=== PATIENT | female | born 1930 | race Caucasian/White ===

== ENCOUNTER 2016-12-06 14:07 | Inpatient (IN) ==
[2016-12-06] MEDS ORDERED: SODIUM CHLORIDE 0.9% 500 ML IV STA (14:26)
--- NOTE | 2016-12-06 14:38 | Emergency Department Note ---
Mally Antoine Mantricia, am scribing for, and in the presence of, Tang Paige MD 14:32. Grecia Antoine James D, MD, personally performed the services described in this documentation, ascribed by Gage Bal in my presence, and it is both accurate and complete 437 . Arrival - Arrival Chief Complaint: Weakness Stated Complaint: weakness ED Nursing Triage Note: Brought in per EMS from home with generalized weakness onset 2 days ago, worse when standing. Unable to ambulate without assistance. Denies pain. Mode of Arrival: Stretcher Limitations: No Limitations Source: Patient, Family Time Seen by Provider: 12/06/16 14:20 - History of Present Illness HPI Narrative: Pt is an 86 y/o white female arriving to ED by EMS with c/o weakness that onset 2 days ago. Family states that pt was Dx with a stomach flu 2 weeks ago and has been weak since then but worsened in the past few days. Family states that pt cannot walk without collapsing even using her walker. Pt has a PMHx of kidney disease but does not dialyze. Pt reports no other complaints to ED. Onset (ago): day(s) Date of Last Menstrual Period: hyst Allergies/Adverse Reactions: Allergies Allergy/AdvReac Type Severity Reaction Status Date / Time Sulfa (Sulfonamide Allergy Unknown/Unable Verified 12/06/16 14:14 Antibiotics) to obtain Home Medications: Home Medications Medication Instructions Recorded Confirmed Type Allopurinol [Allopurinol] 150 mg PO QAM 12/06/16 12/06/16 History Amlodipine Besylate [Amlodipine 7.5 mg PO QAM 12/06/16 12/06/16 History Besylate] Citalopram [CeleXA] 20 mg PO QAM 12/06/16 12/06/16 History Fenofibrate [Fenofibrate] 160 mg PO DAILY W/BREAKFAST 12/06/16 12/06/16 History Gabapentin [Gabapentin] 300 mg PO QAM 12/06/16 12/06/16 History Levothyroxine Tab [Synthroid Tab] 125 mcg PO DAILY@0700 12/06/16 12/06/16 History Metoprolol Tartrate [Metoprolol 100 mg PO BID 12/06/16 12/06/16 History Tartrate] Omeprazole [Omeprazole] 20 mg PO BID 12/06/16 12/06/16 History Ondansetron Tab [Zofran Tab] 4 mg PO Q8HR PRN 12/06/16 12/06/16 History Simvastatin [Simvastatin] 40 mg PO QPM 12/06/16 12/06/16 History Torsemide [Torsemide] 10 mg PO QAM 12/06/16 12/06/16 History cloNIDine TAB [Catapres Tab] 0.3 mg PO QAM 12/06/16 12/06/16 History Review of System - Review of System 12 point system: reviewed and no additional remarkable complaints except as stated - Review of System Constitutional: Absent: chills, diaphoresis, fever Eyes: Absent: discharge, pain, redness Head/Ears/Nose/Throat: Absent: earache, epistaxis Respiratory: Absent: cough, respiratory distress, wheezing Cardiovascular: Absent: chest pain, palpitations, dyspnea on exertion Gastrointestinal: Present: diarrhea. Absent: abdominal pain, nausea, vomiting Genitourinary female: Absent: abnormal menses, dysuria Musculoskeletal: Absent: arm pain, back pain, leg pain, neck pain Skin: Absent: rash, lesions Neurological: Present: weakness. Absent: headache Psychiatric: Absent: anxiety Medical,Surgical,& Family Hx - Medical History Cardio: History of: Hypertension Endocrine: History of: Thyroid Disorder Renal: History of: Renal Problems ("kidney disease") - Surgical History Reproductive Surgeries: Surgical HX of;: Hysterectomy - Social History Smoking Status: Never smoker Frequency of Alcohol Use: None Type of Drug Use: None Exam Vital Signs: Vital Signs Temperature 98.5 F 12/06/16 14:10 Pulse Rate 57 L 12/06/16 15:04 Respiratory Rate 20 12/06/16 15:04 Blood Pressure 178/71 12/06/16 15:04 O2 Sat by Pulse Oximetry 98 12/06/16 15:04 - General General appearance: alert, in no apparent distress, other (Chronically ill- appearing) - Head Head exam: Present: atraumatic, normocephalic, normal inspection - Eye Eye exam: Present: normal appearance, PERRL, EOMI - ENT ENT exam: Present: normal exam, normal oropharynx, mucous membranes dry, TM's normal bilaterally, normal external ear exam - Neck Neck exam: Present: normal inspection, full ROM, trachea midline. Absent: tenderness - Chest Chest inspection: Present: normal inspection, symmetric chest wall rise. Absent : tenderness - Respiratory Respiratory exam: Present: normal lung sounds bilaterally - Cardiovascular Cardiovascular exam: Present: regular rate, normal rhythm, normal heart sounds - Abdominal Exam Abdominal exam: Present: soft, normal bowel sounds. Absent: distention, tenderness, guarding, rebound - Neurological Exam Neurological exam: Present: alert, oriented X3, CN II-XII intact, reflexes normal, other (Motor function is 4/4 in all extremities) - Psychiatric Psychiatric exam: Present: normal affect, normal mood - Skin Skin exam: Present: warm, dry, intact, normal color Course - Consultations Consultation #1: Discussed with hospitalist. Patient will be admitted to their service. Time: 15:36 Results - Labs CBC & BMP: 12/06/16 14:25 12/06/16 14:25 Lab Results: I have reviewed the patients labs Labs: Laboratory Tests 12/06/16 12/06/16 12/06/16 14:25 14:25 15:11 WBC 7.3 Hgb 8.2 L Hct 26.7 L Plt Count 176 Sodium 141 Potassium 4.1 Chloride 106 Carbon Dioxide 26 Anion Gap 13.1 BUN 59 H Creatinine 5.00 H Free T4 1.57 H TSH 3rd Generation 1.510 Urine pH 7.0 Ur Specific [place] 1.010 Urine Protein >=500 Urine RBC <1 Urine WBC 2 - EKG EKG results: interpreted by ERMD - Impressions EKG: Atrial fib with a rate of 57, left posterior fascicular block, nonspecific ST-T wave changes. - Diagnostic Findings Procedure: Chest x-ray: image reviewed by me (Left-sided pneumonia left-sided pneumonia) Disposition Clinical Impression: Generalized weakness, Pneumonia, Chronic renal failure, stage 3 (moderate) Case discussed with: patient, patient's family Disposition: Still a Patient Condition: Stable Time of Disposition: 15:38
[2016-12-06 14:40] LABS: Basophils % 0.4 % (0.0-0.8); Eosinophils # 0.1 10*3/uL (0.0-0.87); Eosinophils % 0.8 % (0.00-10.9); Hematocrit 26.7 VOL% (35.7-47.0); Hemoglobin 8.2 GM/DL (12.0-16.0); Immature Granulocytes % 0.6 %; Immature Granulocytes Absolute 0.04 #; Lymphocytes # 1.8 10*3/uL (1.4-4.0); Lymphocytes % 24.2 % (21.3-54.2); Mean Corpuscular HGB Conc 30.7 GM/DL (32-36); Mean Corpuscular Hemoglobin 29 PG (27-34); Monocytes # 0.6 10*3/uL (0.11-0.8); Monocytes % 8.1 % (1.7-12.7); Neutrophils # 4.8 10*3/uL (1.4-7.4); Neutrophils % 65.9 % (38.7-73.9); Platelet Count 176 T/CUMM (130-400); Red Blood Count 2.81 MC/CUMM (3.8-5.5); Red Cell Distribution Width 15.6 % (9.3-17.3); White Blood Count 7.3 T/CUMM (4-12)
--- NOTE | 2016-12-06 15:01 | CT Report ---
CT head/brain wo con Indication: Generalized weakness Comparison: CT brain dated October 14, 2010 Technique: Multiple axial tomographic images of the brain were obtained without the use of intravenous contrast. Findings: Midline structures are nondisplaced. There is no evidence of acute intracranial hemorrhage or hydrocephalus. Mild periventricular and subcortical hypoattenuation noted which is nonspecific but consistent with chronic microvascular ischemic change. Moderate global volume loss present. Atherosclerotic calcifications demonstrated. Mastoid air cells clear. Probable partially visualized mucous retention cyst within right maxillary sinus. IMPRESSION: No acute intracranial abnormality demonstrated. The CT exam was performed using one or more of the following dose reduction techniques: Automated exposure control, adjustment of the mA and/or kV according to patient size, or use of iterative reconstruction technique. PROCEDURE INTERPRETED AT [facility] DEPARTMENT OF RADIOLOGY Final Report Signed by: Dr Johan Tolentino
--- NOTE | 2016-12-06 15:12 | XRay Report ---
XR chest 1V Indication: Generalized weakness Comparison: Chest x-ray dated May 25, 2012 Technique: Single frontal view of the chest. Findings: Mild cardiomegaly. Left mid and lower lung atelectasis/consolidation with small left pleural fluid. Mild right basilar atelectasis/consolidation with trace right pleural fluid. Pulmonary edema/CHF versus pneumonia. Visualized osseous and surrounding soft tissue structures appear grossly unchanged. Dextroconvex curvature of the spine. IMPRESSION: As above. PROCEDURE INTERPRETED AT [facility] [place] DEPARTMENT OF RADIOLOGY Final Report Signed by: Dr Johan Tolentino
[2016-12-06 15:24] LABS: Albumin 2.8 G/DL (3.4-5.0); Bilirubin,Total 0.6 MG/DL (0.2-1.0); Calcium 8.3 MG/DL (8.5-10.1); Free T4 (Free Thyroxine) 1.57 NG/DL (0.76-1.46); Osmolality,Calculated 297.3 MOS/KG (273-304); Potassium 4.1 MMOL/L (3.5-5.1); Thyroid Stimulating Hormone 1.51 uIU/ml (0.358-3.74); Total Protein 5.2 G/DL (6.4-8.3)
[2016-12-06 15:25] LABS: Apearance,Urine CLEAR (Clear); Bilirubin,Urine Negative (Negative); Blood, Urine Negative (Negative); Glucose,Urine (UA) Negative (Negative); Ketones,Urine Negative (Negative); Nitrite,Urine Negative (Negative); Protein,Urine >=500 MG/DL; RBC,Urine <1 /HPF (0-4); Urine Color Yellow (Yellow); Urine Urobilinogen < 2.0 EU/DL (0.2-1.0); WBC,Urine 2 /HPF (0-6)
--- NOTE | 2016-12-06 15:34 | EKG Report ---
Stationary ECG Study [facility] ER Test Date: 12/06/2016 2:42:16 PM Pat Name: EUGENIE SALDIVAR Department: Room: Gender: F Investigation Division Captain: : [id number] Requested by: Tang Ahumada Order Number: [id number] Reading MD: ANJELICA MARX Intervals [place] Rate: 57 P: 999 HI: 0 QRS: 175 QRSD: 97 T: 202 QT: 422 QTc: 416 Interpretive Statements ATRIAL FIBRILLATION LEFT POSTERIOR FASCICULAR BLOCK MODERATE T-WAVE ABNORMALITY, CONSIDER INFERIOR ISCHEMIA Electronically Signed On 12-06-16 20:54:30 CDT by ANJELICA MARX [email or web address]
[2016-12-06] MEDS ORDERED: LEVOFLOXACIN INJ 500 MG in PREMIX 1 EACH IV STA (15:37)
[2016-12-06] MEDS ORDERED: LEVOFLOXACIN INJ 100 ML IV ONE (16:01)
[2016-12-06] MEDS ORDERED: ACETAMINOPHEN 325 MG TABLET PO PRN (16:25)
--- NOTE | 2016-12-06 16:38 | Hospitalist History & Physical ---
Assessment and Plan (1) Pneumonia Status: Acute Assessment and plan: Impression: 1. Pleural effusion and/or pneumonia 2. Chronic kidney disease, stage V 3. Hypertension Plan: She has already received antibiotics in the emergency room for treatment of presumed pneumonia. I think she needs a thoracentesis. We will plan on this in the morning. I have already ordered pleural fluid studies. We will continue her home medications once the list gets loaded into the medical record. I will notify nephrology of her admission. This note was completed using [employer] voice recognition software. There may be topology teacher errors as a result. Current Visit: Yes Qualifiers: Pneumonia type: due to unspecified organism Laterality: left Lung location: lower lobe of lung Qualified Code(s): J18.1 - Lobar pneumonia, unspecified organism History of Present Illness Chief complaint: Weakness for several days History of present illness: Ms. Haas is a 86 year old female She reports a history of hypertension for at least the past 20 years. She denies any prior history of any heart disease, myocardial infarction, congestive heart failure, or stroke. She was in her usual state of fair health until about 2 weeks before admission. At that time, she felt constipated and took some laxatives. This resulted in diarrhea, and she ended up becoming dehydrated. She went to see her local physician, and received a bag of IV fluids. She was told that she had a "stomach bug." She went to live with her granddaughter for a while and began to improve. She fell a couple of times at the granddaughter's house. She apparently did not lose conscious contact. She had another episode of constipation and again took some laxatives yesterday. She again developed some diarrhea, and was too weak to stand this morning. At that time, she came to the emergency room for further evaluation. She did not have any GI bleeding as far she knows. She has not had any abdominal pain. She reports some chronic exertional dyspnea, but this has not worsened. She has no prior history of any liver disease. She has a history of chronic kidney disease and sees Dr. Soria on a semiannual basis. The family thinks that her creatinine is somewhere between 6-7. She was found to have a left-sided pleural effusion or infiltrate in the emergency room, and is now being admitted for management of that. Home Medications Medication Instructions Recorded Confirmed Type Allopurinol [Allopurinol] 150 mg PO QAM 12/06/16 12/06/16 History Amlodipine Besylate [Amlodipine 7.5 mg PO QAM 12/06/16 12/06/16 History Besylate] Citalopram [CeleXA] 20 mg PO QAM 12/06/16 12/06/16 History Fenofibrate [Fenofibrate] 160 mg PO DAILY W/BREAKFAST 12/06/16 12/06/16 History Gabapentin [Gabapentin] 300 mg PO QAM 12/06/16 12/06/16 History Levothyroxine Tab [Synthroid Tab] 125 mcg PO DAILY@0700 12/06/16 12/06/16 History Metoprolol Tartrate [Metoprolol 100 mg PO BID 12/06/16 12/06/16 History Tartrate] Omeprazole [Omeprazole] 20 mg PO BID 12/06/16 12/06/16 History Ondansetron Tab [Zofran Tab] 4 mg PO Q8HR PRN 12/06/16 12/06/16 History Simvastatin [Simvastatin] 40 mg PO QPM 12/06/16 12/06/16 History Torsemide [Torsemide] 10 mg PO QAM 12/06/16 12/06/16 History cloNIDine TAB [Catapres Tab] 0.3 mg PO QAM 12/06/16 12/06/16 History Allergies Allergy/AdvReac Type Severity Reaction Status Date / Time Sulfa (Sulfonamide Allergy Unknown/Unable Verified 12/06/16 14:14 Antibiotics) to obtain Medical,Surgical,& Family Hx - Medical History Cardio: History of: Hypertension Endocrine: History of: Thyroid Disorder Respiratory: History of: Pneumonia Renal: History of: Renal Failure, Renal Problems ("kidney disease") - Surgical History Abdominal Surgeries: Surgical HX of: Cholecystectomy Reproductive Surgeries: Surgical HX of;: Hysterectomy Orthopedic Surgeries: Surgical HX of;: Spinal Surgery - Social History Smoking Status: Never smoker Frequency of Alcohol Use: None Type of Drug Use: None Marital Status: Single Lives With:: Alone Review of systems: Gen.: She is lost about 15 pounds over the past couple of months. Eyes: No glaucoma or cataracts. No change in visual acuity. Ears nose and throat: No change in auditory acuity, sinus problems, or sore throat. Lungs: No asthma or bronchitis. She had pneumonia about 3 years ago. Cardiac: See history of present. GI: No liver disease. Otherwise, see history of present illness : No hematuria, UTI, or stones. Chronic kidney disease as described above. Neurologic: No seizures. Endocrine: No thyroid disease. Hematologic: Chronic anemia, likely related to her chronic kidney disease. Skin: No rashes or lesions. Musculoskeletal: Only age-related arthritic complaints. Exam - Constitutional Vitals: Period Temp Pulse Resp BP Sys/Garcia Pulse Ox Last 24 Hr 98.5 F-98.5 F 57-60 18-20 171-185/71-85 94-100 Vital signs are noted above. General: She is a pleasant white lady in no distress. HEENT: Pupils are round and reactive. Extraocular muscles are normal. Gaze is conjugate. Fundi were not examined. There is no nasal discharge. Mucous membranes are moist. Neck: Supple, without mass, bruit, or venous distention. Cardiac: Rhythm is regular. The carotids are normal. I don't hear murmur gallop or rub. Peripheral pulses are intact. Lungs: Breath sounds are decreased in the left base with dullness to percussion. Abdomen: Soft and nontender. Bowel sounds are present. No mass palpable. Rectal: Not done. Extremities: No cyanosis, clubbing, or edema. Skin: No significant rash or lesion. Neurologic: She is awake and alert. She moves all 4 extremities. Cranial nerves appear to be intact. No pathologic reflexes are elicited. Results - Labs CBC & BMP: 12/06/16 14:25 12/06/16 14:25 Lab Results: I have reviewed the past 24 hour labs - Diagnostic Findings Procedure: Chest x-ray: image reviewed by me (Left-sided pleural effusion and/ or infiltrate)
[2016-12-06] MEDS ORDERED: ONDANSETRON 4 MG TABLET PO PRN (16:46)
[2016-12-06] MEDS: LEVOFLOXACIN INJ 500 MG in PREMIX 1 EACH IV SCH (18:10)
[2016-12-06] MEDS: ENOXAPARIN 30 MG/0.3 ML SYRINGE SUBCUT SCH (18:31)
[2016-12-06] MEDS ORDERED: SIMVASTATIN 40 MG TABLET PO SCH (19:00)
[2016-12-06 19:37] LABS: INR 1.2; PT Patient Result 12.5 SECS; Partial Thromboplastin Time 29.9 SECS (0-40)
[2016-12-06] MEDS: METOPROLOL TARTRATE 100 MG TABLET PO SCH (20:36)
[2016-12-06] MEDS: PANTOPRAZOLE 40 MG TABLET PO SCH (20:36)
[2016-12-07 05:18] LABS: Basophils % 0.4 % (0.0-0.8); Eosinophils # 0.1 10*3/uL (0.0-0.87); Eosinophils % 0.9 % (0.00-10.9); Hematocrit 23.2 VOL% (35.7-47.0); Immature Granulocytes % 0.4 %; Immature Granulocytes Absolute 0.02 #; Lymphocytes % 35.8 % (21.3-54.2); Mean Corpuscular HGB Conc 30.2 GM/DL (32-36); Mean Corpuscular Hemoglobin 30 PG (27-34); Mean Corpuscular Volume 97.9 FL (87-102); Mean Platelet Volume 11.7 FL (9.6-12.0); Monocytes # 0.6 10*3/uL (0.11-0.8); Monocytes % 11.3 % (1.7-12.7); Neutrophils # 2.9 10*3/uL (1.4-7.4); Neutrophils % 51.2 % (38.7-73.9); Platelet Count 150 T/CUMM (130-400); Red Blood Count 2.37 MC/CUMM (3.8-5.5); Red Cell Distribution Width 15.6 % (9.3-17.3); White Blood Count 5.6 T/CUMM (4-12)
[2016-12-07 05:43] LABS: Calcium 7.7 MG/DL (8.5-10.1); Osmolality,Calculated 296.3 MOS/KG (273-304)
[2016-12-07] MEDS: LEVOTHYROXINE 125 MCG TABLET PO SCH (06:08)
[2016-12-07] MEDS ORDERED: FENOFIBRATE 160 MG TABLET PO SCH (08:00)
--- NOTE | 2016-12-07 09:54 | Hospitalist Progress Note ---
Assessment and Plan (1) Pneumonia Status: Acute Assessment and plan: Impression: 1. Pleural effusion and/or pneumonia 2. Chronic kidney disease, stage V 3. Hypertension Plan: Continue current antibiotics. Await thoracentesis and results of pleural fluid studies. Nephrology has been notified of her admission. This note was completed using [employer] voice recognition software. There may be truck crane operator errors as a result. Current Visit: Yes Qualifiers: Pneumonia type: due to unspecified organism Laterality: left Lung location: lower lobe of lung Qualified Code(s): J18.1 - Lobar pneumonia, unspecified organism Hospitalist: Subjective Interval history: Follow-up right sided pneumonia/effusion and chronic kidney disease. Patient says that she did not sleep well. Overall, she feels a little better. We are still waiting on the thoracentesis. Exam - Constitutional Vitals: Period Temp Pulse Resp BP Sys/Garcia Pulse Ox Last 24 Hr 97.0 F-99.1 F 55-62 18-20 143-191/68-90 93-100 Vital signs are noted above. Heart is regular with no murmur or gallop. Lungs are notable for decreased breath sounds in the left base with dullness to percussion. She is awake and alert Results - Labs CBC & BMP: 12/07/16 04:53 12/07/16 04:53 Lab Results: I have reviewed the past 24 hour labs
[2016-12-07] MEDS: CITALOPRAM 20 MG TABLET PO SCH (10:24)
[2016-12-07] MEDS: PANTOPRAZOLE 40 MG TABLET PO SCH ×2 (10:25→20:59)
[2016-12-07] MEDS: GABAPENTIN 300 MG CAPSULE PO SCH (10:25)
[2016-12-07] MEDS: METOPROLOL TARTRATE 100 MG TABLET PO SCH ×2 (10:26→20:59)
[2016-12-07] MEDS: amLODIPine 5 MG TABLET PO SCH (10:26)
[2016-12-07] MEDS: TORSEMIDE 20 MG TABLET PO SCH (10:27)
[2016-12-07] MEDS: ALLOPURINOL 300 MG TABLET PO SCH (10:27)
--- NOTE | 2016-12-07 13:11 | Post Interventional Procedure ---
Pre-op diagnosis: SOB with left pleural effusion Post-op diagnosis: same Procedure: left thoracentesis Contrast: none Flouroscopy: none Radiologist: Byron Whitlock Anesthesia: local Specimens: other (fluid sent for any requested studies) Estimated blood loss: none Complications: none Condition: stable Description/Findings: left pleural effusion drained with 6F centesis needle using u/s guidance with no issues Assessment and Plan - Time spent with patient Time spent with patient: Less than 30 minutes
--- NOTE | 2016-12-07 13:14 | XRay Report ---
Exam: XR chest post procedure Indication: Status post left thoracentesis Comparison study: Chest radiograph dated 12/06/2016 at 2:57 PM Findings: Since the prior study, there is significant decrease in pleural fluid within the left chest. There is no pneumothorax following left thoracentesis. Mild cardiomegaly and atherosclerotic changes of the thoracic aorta appears similar to prior. Lungs are otherwise predominantly clear. There is no significant residual pleural fluid. Osseous structures appear stable. Impression: No pneumothorax following left thoracentesis with significant decrease in pleural fluid in the left lung base. PROCEDURE INTERPRETED AT [facility] DEPARTMENT OF RADIOLOGY Final Report Signed by: Byron Whitlock
[2016-12-07 14:15] LABS: Lymphocytes,Pleural Fluid 85 %; Monocytes,Pleural Fluid 2 %; Neutrophils,Pleural Fluid 12 %
[2016-12-07 14:16] LABS: RBC,Pleural Fluid < 1 T/CUMM
--- NOTE | 2016-12-07 14:20 | Ultrasound Report ---
Exam: ULTRASOUND-GUIDED THORACENTESIS Clinical history: History of moderate-sized left pleural effusion with shortness of breath. Physician: Dr. Whitlock. Procedure: Informed consent was obtained prior to the procedure. A formal timeout was performed. Maximum sterile barrier technique was used. A partially loculated left-sided pleural effusion was identified with ultrasound. The left posterior chest was prepped and draped in sterile fashion. 1% lidocaine was used to anesthetize the skin and subcutaneous tissues. Under sonographic guidance, a 6 Czech safety centesis needle and catheter were advanced into the effusion using trocar technique. A captured sonographic image demonstrates positioning of the needle within the targeted pleural fluid. The needle was removed. Through the catheter, we obtained a total of 600 cc of serous straw-colored fluid. The catheter was removed. A bandage was placed at the puncture site. The patient tolerated the procedure well. Chest radiograph is pending. Total number of images for the procedure: 2 Impression: 1. Technically successful ultrasound guided left thoracentesis as detailed above. 2. Post procedure chest radiograph is pending. PROCEDURE INTERPRETED AT [facility] DEPARTMENT OF RADIOLOGY Final Report Signed by: Byron Whitlock
--- NOTE | 2016-12-07 14:35 | Event Note ---
The patient had 600 mL of pleural fluid removed. Studies are consistent with a transudate. We will continue antibiotics for now, although the chest x-ray postprocedure looks pretty good.
--- NOTE | 2016-12-07 19:16 | Nephrology Consult Note ---
History of Present Illness Chief complaint: CRF History of present illness: Ms. Haas is a 86 year old female admitted with left pleural effusion. She denies pleuritic chest pain or hemoptysis. She reports constipation followed by diarrhea after taking laxatives. No abdominal pain. She has chronic renal failure which was noted to be worse at the time of this admission. She denies dysuria or hematuria. Home Medications Medication Instructions Recorded Confirmed Type Allopurinol [Allopurinol] 150 mg PO DAILY 12/06/16 12/07/16 History Amlodipine Besylate [Amlodipine 7.5 mg PO DAILY 12/06/16 12/07/16 History Besylate] Citalopram [CeleXA] 20 mg PO DAILY 12/06/16 12/07/16 History Fenofibrate [Fenofibrate] 160 mg PO DAILY W/BREAKFAST 12/06/16 12/06/16 History Gabapentin [Gabapentin] 300 mg PO DAILY 12/06/16 12/07/16 History Levothyroxine Tab [Synthroid Tab] 125 mcg PO DAILY@0700 12/06/16 12/06/16 History Metoprolol Tartrate [Metoprolol 100 mg PO BID 12/06/16 12/06/16 History Tartrate] Omeprazole [Omeprazole] 20 mg PO BID 12/06/16 12/06/16 History Ondansetron Tab [Zofran Tab] 4 mg PO Q8HR PRN 12/06/16 12/06/16 History Simvastatin [Simvastatin] 40 mg PO BEDTIME 12/06/16 12/07/16 History Torsemide [Torsemide] 5 mg PO DAILY 12/06/16 12/07/16 History cloNIDine TAB [Catapres Tab] 0.3 mg PO DAILY 12/06/16 12/07/16 History Allergies Allergy/AdvReac Type Severity Reaction Status Date / Time Sulfa (Sulfonamide Allergy Unknown/Unable Verified 12/06/16 14:14 Antibiotics) to obtain Medical,Surgical,& Family Hx - Medical History Cardio: History of: Hypertension Endocrine: History of: Thyroid Disorder Respiratory: History of: Pneumonia Renal: History of: Renal Failure, Renal Problems ("kidney disease") - Surgical History Abdominal Surgeries: Surgical HX of: Cholecystectomy Reproductive Surgeries: Surgical HX of;: Hysterectomy Orthopedic Surgeries: Surgical HX of;: Spinal Surgery - Social History Smoking Status: Never smoker Frequency of Alcohol Use: None Type of Drug Use: None Review of Systems 12 point system: reviewed and no additional remarkable complaints except as stated Exam - Vital Signs Vital signs: Period Temp Pulse Resp BP Sys/Garcia Pulse Ox Last 24 Hr 97.0 F-99.2 F 55-78 16-20 146-193/57-90 91-97 Exam: Gen.: Alert and oriented x3. ENT: Pupils equal round reactive to light. EOMs intact. Mucous membranes moist. Neck: Supple. No JVD or bruit. Cardiovascular: Regular rate and rhythm. No murmur rub or gallop Lungs: Clear Abdomen: Soft. Nontender. Positive bowel sounds. No organomegaly Extremities: No edema Results - Labs CBC & BMP: 12/07/16 04:53 12/07/16 04:53 Assessment and Plan (1) Chronic kidney disease, stage IV (severe) Status: Acute Assessment and plan: 86-year-old woman admitted with: * Pleural effusion. Thoracentesis today. Studies pending. Continue current antibiotic * CRF stage IV. Baseline creatinine 3.1 in December 2016 * Acute on chronic renal failure. She does not appear to be volume overloaded. Blood pressure was low at the time of admission. Renal function improving with improving blood pressure * Anemia. Erythropoietin level ordered Current Visit: Yes (2) Pleural effusion Status: Acute Current Visit: Yes (3) Anemia Status: Acute Current Visit: Yes (4) Acute on chronic renal failure Status: Acute Current Visit: Yes
[2016-12-07] MEDS: FENOFIBRATE 160 MG TABLET PO SCH (20:59)
[2016-12-07] MEDS: ENOXAPARIN 30 MG/0.3 ML SYRINGE SUBCUT SCH (20:59)
[2016-12-07] MEDS: SIMVASTATIN 40 MG TABLET PO SCH (20:59)
[2016-12-08] MEDS: LEVOTHYROXINE 125 MCG TABLET PO SCH (06:07)
[2016-12-08] MEDS: GABAPENTIN 300 MG CAPSULE PO SCH (09:01)
[2016-12-08] MEDS: METOPROLOL TARTRATE 100 MG TABLET PO SCH ×2 (09:02→21:20)
[2016-12-08] MEDS: ALLOPURINOL 300 MG TABLET PO SCH (09:02)
[2016-12-08] MEDS: PANTOPRAZOLE 40 MG TABLET PO SCH ×2 (09:02→21:20)
[2016-12-08] MEDS: TORSEMIDE 20 MG TABLET PO SCH (09:03)
[2016-12-08] MEDS: CITALOPRAM 20 MG TABLET PO SCH (09:03)
[2016-12-08] MEDS: amLODIPine 5 MG TABLET PO SCH (09:06)
[2016-12-08 10:43] LABS: Basophils % 0.2 % (0.0-0.8); Eosinophils # 0.1 10*3/uL (0.0-0.87); Eosinophils % 1.2 % (0.00-10.9); Hematocrit 22.9 VOL% (35.7-47.0); Hemoglobin 7.1 GM/DL (12.0-16.0); Immature Granulocytes % 0.4 %; Immature Granulocytes Absolute 0.02 #; Lymphocytes # 1.7 10*3/uL (1.4-4.0); Lymphocytes % 32.8 % (21.3-54.2); Mean Corpuscular Hemoglobin 30 PG (27-34); Mean Corpuscular Volume 97.4 FL (87-102); Mean Platelet Volume 10.7 FL (9.6-12.0); Monocytes # 0.5 10*3/uL (0.11-0.8); Neutrophils # 2.9 10*3/uL (1.4-7.4); Neutrophils % 55.4 % (38.7-73.9); Platelet Count 126 T/CUMM (130-400); Red Blood Count 2.35 MC/CUMM (3.8-5.5); Red Cell Distribution Width 15.6 % (9.3-17.3); White Blood Count 5.2 T/CUMM (4-12)
[2016-12-08 11:10] LABS: Calcium 8.1 MG/DL (8.5-10.1); Osmolality,Calculated 299.1 MOS/KG (273-304); Potassium 4.1 MMOL/L (3.5-5.1)
--- NOTE | 2016-12-08 12:24 | Nephrology Progress Note ---
Nephrology - PN: Subj Interval history: She states her breathing has improved after thoracentesis. No GI symptoms. Exam (PN)-Nephrology - Vital Signs Vital signs: Period Temp Pulse Resp BP Sys/Garcia Pulse Ox Last 24 Hr 97.0 F-99.3 F 53-83 16-22 146-193/57-86 90-99 Exam: ENT: Normal Cardiovascular: Regular rate and rhythm. No murmur rub or gallop Lungs: Clear Extremities: No edema - Lab 12/08/16 10:34 12/08/16 10:34 Most recent lab results Calcium 8.1 MG/DL (8.5-10.1) L 12/08/16 10:34 Assessment and Plan (1) Chronic kidney disease, stage IV (severe) Status: Acute Assessment and plan: 86-year-old woman admitted with: * Pleural effusion. Status post thoracentesis. Continue current antibiotic * CRF stage IV. Baseline creatinine 3.1 in December 2016 * Acute on chronic renal failure. Creatinine stable today. * Anemia. Erythropoietin level ordered. Hematocrit lower today. Consider transfusion Current Visit: Yes (2) Pleural effusion Status: Acute Current Visit: Yes (3) Anemia Status: Acute Current Visit: Yes (4) Acute on chronic renal failure Status: Acute Current Visit: Yes
[2016-12-08] MEDS ORDERED: SODIUM CHLORIDE 0.9% 250 ML IV PRN (12:42)
--- NOTE | 2016-12-08 12:46 | Hospitalist Progress Note ---
Assessment and Plan - Time spent with patient Time spent with patient: Greater than 30 minutes (1) Pneumonia Status: Acute Current Visit: Yes Qualifiers: Pneumonia type: due to unspecified organism Laterality: left Lung location: lower lobe of lung Qualified Code(s): J18.1 - Lobar pneumonia, unspecified organism (2) Chronic kidney disease, stage IV (severe) Status: Acute Current Visit: Yes (3) Pleural effusion Status: Acute Current Visit: Yes (4) Anemia Status: Acute Current Visit: Yes (5) Acute on chronic renal failure Status: Acute Assessment and plan: We will obtain echocardiogram to further evaluate chest x-ray finding. I suspect her anemia is related to chronic kidney disease, but to most rule out possible GI losses, send stool occult blood. Transfused 2 units of PRBC. Consult physical, patient left therapy for deconditioning. Nephrology following Current Visit: Yes Hospitalist: Subjective Interval history: She reports improvement in her breathing after thoracentesis, however continues to complain of generalized weakness. No fever. Marked drop and hematocrit level, no active bleeding. Cardiomegaly documented on chest x-ray, no recent echocardiogram on chart. Exam - Constitutional Vitals: Period Temp Pulse Resp BP Sys/Garcia Pulse Ox Last 24 Hr 97.0 F-99.3 F 53-83 16-22 146-193/57-86 90-99 General appearance: mild distress - Head Head exam: Present: normocephalic, atraumatic - Eye Pupils: Present: ABE - ENT ENT exam: Present: normal external ear exam - Respiratory Respiratory exam: Present: clear to auscultation bilaterally. Absent: rhonchi, stridor - Cardiovascular Cardiovascular exam: Present: regular rate and rhythm. Absent: JVD - GI/Abdominal GI/Abdominal exam: Present: normal bowel sounds, soft. Absent: tenderness - Extremities Exam Extremities exam: Absent: edema - Neurological Exam Neurological exam: Present: alert, oriented X3 - Skin Skin exam: Present: normal color, warm, dry Results - Labs CBC & BMP: 12/08/16 10:34 12/08/16 10:34 Lab Results: I have reviewed the past 24 hour labs
[2016-12-08] MEDS: LEVOFLOXACIN INJ 500 MG in PREMIX 1 EACH IV SCH (21:19)
[2016-12-08] MEDS: SIMVASTATIN 40 MG TABLET PO SCH (21:20)
[2016-12-08] MEDS: FENOFIBRATE 160 MG TABLET PO SCH (21:20)
[2016-12-08] MEDS: ENOXAPARIN 30 MG/0.3 ML SYRINGE SUBCUT SCH (21:21)
[2016-12-09 02:25] LABS: Hematocrit 29.1 VOL% (35.7-47.0); Hemoglobin 9.1 GM/DL (12.0-16.0)
[2016-12-09] MEDS: LEVOTHYROXINE 125 MCG TABLET PO SCH (06:43)
[2016-12-09] MEDS: GABAPENTIN 300 MG CAPSULE PO SCH (08:14)
[2016-12-09] MEDS: CITALOPRAM 20 MG TABLET PO SCH (08:14)
[2016-12-09] MEDS: METOPROLOL TARTRATE 100 MG TABLET PO SCH ×2 (08:14→22:02)
[2016-12-09] MEDS: PANTOPRAZOLE 40 MG TABLET PO SCH ×2 (08:14→22:03)
[2016-12-09] MEDS: amLODIPine 5 MG TABLET PO SCH (08:14)
[2016-12-09] MEDS: TORSEMIDE 20 MG TABLET PO SCH (08:14)
[2016-12-09] MEDS: ALLOPURINOL 300 MG TABLET PO SCH (08:14)
--- NOTE | 2016-12-09 09:16 | Hospitalist Progress Note ---
Assessment and Plan - Time spent with patient Time spent with patient: Greater than 30 minutes (1) Pneumonia Status: Acute Current Visit: Yes Qualifiers: Pneumonia type: due to unspecified organism Laterality: left Lung location: lower lobe of lung Qualified Code(s): J18.1 - Lobar pneumonia, unspecified organism (2) Chronic kidney disease, stage IV (severe) Status: Acute Current Visit: Yes (3) Pleural effusion Status: Acute Current Visit: Yes (4) Anemia Status: Acute Current Visit: Yes (5) Acute on chronic renal failure Status: Acute Assessment and plan: We will obtain echocardiogram to further evaluate chest x-ray finding. Follow stool occult blood. Status post 2 units of PRBC. Physical therapy for deconditioning. She may need rehab placement on discharge and she is open to the idea. Nephrology following Current Visit: Yes Hospitalist: Subjective Interval history: No new changes, no fever. She clinically does not feel any stronger than she did over the last couple of days. No obvious medical reasons other than deconditioning due to acute and chronic illnesses has been found for her weakness so far. She will need rehab placement upon discharge Status post 2 PRBCs with appropriate rising hematocrit. Exam - Constitutional Vitals: Period Temp Pulse Resp BP Sys/Garcia Pulse Ox Last 24 Hr 97.0 F-99.3 F 53-64 16-20 143-197/54-88 93-100 Exam: General appearance: mild distress - Head Head exam: Present: normocephalic, atraumatic - Eye Pupils: Present: ABE - ENT ENT exam: Present: normal external ear exam - Respiratory Respiratory exam: Present: clear to auscultation bilaterally. Absent: rhonchi, stridor - Cardiovascular Cardiovascular exam: Present: regular rate and rhythm. Absent: JVD - GI/Abdominal GI/Abdominal exam: Present: normal bowel sounds, soft. Absent: tenderness - Extremities Exam Extremities exam: Absent: edema - Neurological Exam Neurological exam: Present: alert, oriented X3 - Skin Skin exam: Present: normal color, warm, dry Results - Labs CBC & BMP: 12/09/16 01:51 12/08/16 10:34 Lab Results: I have reviewed the past 24 hour labs
--- NOTE | 2016-12-09 13:14 | Nephrology Progress Note ---
Nephrology - PN: Subj Interval history: Pt states she feels better. Creatinine stable x 2 days at 4.8 for eGFR 8cc/min. CKD stage 5. No uremic symptoms. Exam (PN)-Nephrology - Vital Signs Vital signs: Period Temp Pulse Resp BP Sys/Garcia Pulse Ox Last 24 Hr 97.6 F-99.3 F 55-64 16-20 143-197/54-88 93-100 - General Appearance General appearance: well-developed, chronically ill EENT: ATNC, PERRL, mucous membranes moist, hearing intact, vision intact Neck: no JVD, no thyromegaly Respiratory: no kyphosis, clear Cardiology: no murmurs, no edema Gastrointestinal: normoactive bowel sounds, no tenderness Integumentary: no rash, warm and dry Neurologic: no focal deficit, no asterixis Musculoskeletal: no deformities, no erythema Psychiatric: mood/affect appropriate, cooperative - Lab 12/09/16 01:51 12/08/16 10:34 Most recent lab results Calcium 8.1 MG/DL (8.5-10.1) L 12/08/16 10:34 Assessment and Plan (1) CKD (chronic kidney disease) stage 5, GFR less than 15 ml/min Problem details: No acute indication for HD at this time. Status: Acute Assessment and plan: No new recs. Current Visit: Yes
--- NOTE | 2016-12-09 21:05 | ECHO Report ---
Waldo Karin Exam Date: 12/09/2016 11:11 Referring Physician: Technologist: Rosetta Granda RDCS Age: 86 Ht (in): 62 Wt (lb): 165 Gender: F Exam Location: [facility] Echo Indications: Pneumonia, Chronic kidney disease, stage 5, Acute kidney failure, unspecified, Pleural effusion, not elsewhere classified, Anemia, Abnormal CXR, Essential (primary) hypertension, post Thoracentesis BP: 149 / 68 HR: 55 Rhythm: Sinus Technical Quality: IMPRESSIONS Left ventricular ejection fraction is estimated at 50-55 %. Mild concentric left ventricular hypertrophy. Moderately thickened mitral valve with mild mitral annular calcification and mild mitral valve regurgitation. Mild aortic valve sclerosis without stenosis. Mild tricuspid valve regurgitation. Tricuspid regurgitation velocities suggest a PAP of 50 mmHg. MEASUREMENTS (Male / Female) Normal Values 2D ECHO LV Diastolic Diameter PLAX 5.2 cm 4.2 - 5.9 / 3.9 - 5.3 cm LV Systolic Diameter PLAX 3.1 cm LV Fractional Shortening PLAX 40.1 % IVS Diastolic Thickness 1.1 cm 0.6 - 1.0 / 0.6 - 0.9 cm LVPW Diastolic Thickness 1.0 cm 0.6 - 1.0 / 0.6 - 0.9 cm RV Internal Dim ED PLAX 2.9 cm Aortic Root Diameter 3.2 cm LA Systolic Diameter LX 4.4 cm 3.0 - 4.0 / 2.7 - 3.8 cm DOPPLER TR Peak Velocity 316.0 cm/s TR Peak Gradient 39.9 mmHg FINDINGS Left Ventricle Normal left ventricular cavity size. Mild concentric left ventricular hypertrophy. Left ventricular ejection fraction is estimated at 50-55 %. Right Ventricle The right ventricle is normal in size and function. Right Atrium Moderately increased right atrial size. Left Atrium Moderately increased left atrial size. Mitral Valve Moderately thickened mitral valve with mild mitral annular calcification and mild mitral valve regurgitation. Aortic Valve Mild aortic valve sclerosis without stenosis. Tricuspid Valve Morphologically normal tricuspid valve. Mild tricuspid valve regurgitation. Tricuspid regurgitation velocities suggest a PAP of 50 mmHg. Pulmonic Valve Morphologically normal pulmonic valve. Trace to mild pulmonary valve regurgitation. Pericardium Normal pericardium without effusion. Aorta Normal ascending aorta dimension. Christiano Pinto (Electronically Signed) Final Date: 09 December 2016 21:03
[2016-12-09] MEDS: ENOXAPARIN 30 MG/0.3 ML SYRINGE SUBCUT SCH (22:02)
[2016-12-09] MEDS: FENOFIBRATE 160 MG TABLET PO SCH (22:03)
[2016-12-09] MEDS: SIMVASTATIN 40 MG TABLET PO SCH (22:03)
[2016-12-10] MEDS: LEVOTHYROXINE 125 MCG TABLET PO SCH (06:33)
[2016-12-10] MEDS: METOPROLOL TARTRATE 100 MG TABLET PO SCH ×2 (08:17→20:10)
[2016-12-10] MEDS: amLODIPine 5 MG TABLET PO SCH (08:17)
[2016-12-10] MEDS: TORSEMIDE 20 MG TABLET PO SCH (08:18)
[2016-12-10] MEDS: PANTOPRAZOLE 40 MG TABLET PO SCH ×2 (08:19→20:10)
[2016-12-10] MEDS: GABAPENTIN 300 MG CAPSULE PO SCH (08:19)
[2016-12-10] MEDS: CITALOPRAM 20 MG TABLET PO SCH (08:19)
[2016-12-10] MEDS: ALLOPURINOL 300 MG TABLET PO SCH (08:19)
--- NOTE | 2016-12-10 10:02 | Hospitalist Progress Note ---
Assessment and Plan - Time spent with patient Time spent with patient: Greater than 30 minutes (1) Pneumonia Status: Acute Current Visit: Yes Qualifiers: Pneumonia type: due to unspecified organism Laterality: left Lung location: lower lobe of lung Qualified Code(s): J18.1 - Lobar pneumonia, unspecified organism (2) Chronic kidney disease, stage IV (severe) Status: Acute Current Visit: Yes (3) Pleural effusion Status: Acute Current Visit: Yes (4) Anemia Status: Acute Current Visit: Yes (5) Acute on chronic renal failure Status: Acute Assessment and plan: Follow stool occult blood. Status post 2 units of PRBC. Monitor hematocrit Continue physical therapy for deconditioning. She will need rehab placement on discharge and she is open to the idea. We may ask pulmonology to see her for her moderate to severe pulmonary hypertension with a pulmonary artery pressure of 50 as this may be playing a significant role in her poor exercise tolerance and generalized weakness. Nephrology following, no plan for renal replacement therapy at this time she is not uremic and not oliguric. Follow nephrology recommendation. Current Visit: Yes Hospitalist: Subjective Interval history: Elderly woman was admitted for gradually worsening shortness of breath, found to have pleural effusion during evaluation, she is status post thoracentesis with some improvement in her respiratory status. Also found to have stage V chronic kidney disease with nephrology is following. All in all, she has improved but still continues to complain of generalized weakness, nothing focal. I reviewed her echocardiogram report, ejection fraction is good, she however has severe pulmonary hypertension with PAP of 50 No fever. Overnight, no new events reported. She has remained hemodynamically stable. We feel that she is nearing discharge and will probably have to go to rehab facility. Exam - Constitutional Vitals: Period Temp Pulse Resp BP Sys/Garcia Pulse Ox Last 24 Hr 97.6 F-98.6 F 55-59 18-20 154-165/59-82 96-99 Exam: General appearance: mild distress - Head Head exam: Present: normocephalic, atraumatic - Eye Pupils: Present: ABE - ENT ENT exam: Present: normal external ear exam - Respiratory Respiratory exam: Present: clear to auscultation bilaterally. Absent: rhonchi, stridor - Cardiovascular Cardiovascular exam: Present: regular rate and rhythm. Absent: JVD - GI/Abdominal GI/Abdominal exam: Present: normal bowel sounds, soft. Absent: tenderness - Extremities Exam Extremities exam: Absent: edema - Neurological Exam Neurological exam: Present: alert, oriented X3 - Skin Skin exam: Present: normal color, warm, dry Results - Labs CBC & BMP: 12/09/16 01:51 12/08/16 10:34 Lab Results: I have reviewed the past 24 hour labs
--- NOTE | 2016-12-10 10:55 | Pulmonology Consult Note ---
History of Present Illness Chief complaint: Pulmonary hypertension. Dyspnea on exertion. Pleural effusion. History of present illness: Ms. Haas is a 86 year old white female who was seen along with her son. I was consulted to see this patient concerning pulmonary hypertension. The patient said that she had been in her usual state of health and been able to get around and take care of herself until 3 or 4 [address] ago[address] Along the way she had some constipation and took some cathartics and eventually became dehydrated. She went to live with her granddaughter for short while and she had several falls while she was at the house. She says she did not lose consciousness. Along the way her constipation returned and she really took laxatives and again developed diarrhea and weakness and subsequently came to the emergency room and she was admitted. Her chest x-ray showed a left sided pleural effusion. She had a thoracentesis and a test that was submitted showed a transudate that has not been a follow-up x-ray. The patient says she has had some fullness in her chest with exertion. She feels like she has had a rather rapid downhill course. She denies solid dysphasia or reflux. She has not had any significant swelling in her legs but she does note that years ago she had phlebitis in her legs. She complains of a jerking sensation and may have been associated with her dehydration. This best I can tell this is resolved. The patient says that she is no longer able to get around well. The remainder of the review of systems is negative. Allergies. Sulfa. Home medicines. See below Hospital medicines. See below Past history. High blood pressure. She takes Norvasc. Elevated triglycerides. Hypothyroidism. Hyperlipidemia. She has had chronic wrinkling insufficiency which is followed by Dr. Jose Soria. Her primary care physician is Dr. Attila uTrner. There is a past history of pneumonia. Gout Surgeries. Hysterectomy. Cholecystectomy. Spinal surgery. Social history. Patient was seen along with her son. Until recently she has lived by herself. She has never smoked. She denies the use of alcohol. Chest x-ray. 12/06/2016. Cardiomegaly. Slight increase in interstitial markings in the right lower lung. Increased vascular markings in the left upper lung and the left lower lung. There is also a pleural effusion on the left that obliterates the left heart border and the left costophrenic angle. This is a portable PA film only. EKG. Atrial fib with a rate of approximately 65. Echocardiogram. Left ventricular ejection fraction is estimated to be 50-55% with mild concentric left ventricular hypertrophy. There is a moderately thickened mitral valve with mild mitral annular calcification and mild mitral regurgitation. Tricuspid regurgitation suggest a pulmonary artery pressure of 50 mmHg. The left atrium, right atrium are increased in size. The right ventricle is normal in size and function. CT of the brain. No acute changes Microbiology. No positive cultures. Lab. Creatinine is 4.8 with a BUN of 58 and normal electrolytes. H&H is low at 7.1/22.9. Platelets are 128,000. Admit white count was 7300 with 66 segs 24 lymphs. White count is now 5200 with 55 segs 33 lymphs and 10 monos. Calcium is low. Albumin is low. Total protein is low. Urine shows no evidence of infection TSH is normal. Free T4 is elevated at 1.57. Labs been reviewed. Medicines have been reviewed Physical exam. Vital signs. See below. Afebrile. Psychiatric. Oriented 3. Fair historian. Her son is very helpful. General. No apparent distress. Face. Symmetrical. Lips and tongue are normal. Neck. Symmetrical. No mass. Thyroid was not palpated. Lymphatics. No submandibular cervical supraclavicular adenopathy. Chest is symmetrical kyphotic with clear breath sounds. Heart sounds are distant. I cannot hear murmur rub or gallop. Breast deferred Abdomen is nontender. Bowel sounds are positive. and rectal deferred. Lower extremities. Slight tenderness of the posterior casts with direct pressure bilaterally. No edema no obvious deep venous thrombophlebitis. Musculoskeletal age-appropriate loss normal curvature cervical thoracic and lumbar spine Neurologic. Cranial nerves are intact with mild to moderate decreased hearing acuity bilaterally. Long track motor function was intact. Gait was not tested. The remainder of the physical exam is noncontributory. Remainder the physical exam is also negative. Impression. 1. Left pleural effusion. Transudate. Etiology undetermined 2. Chronic renal failure. Followed by Dr. Jose Soria 3. Mild mitral valve regurgitation 4. Pulmonary artery pressures of 50 mmHg. Mild pulmonary hypertension. Note the patient's on Norvasc 7-1/2 mg daily which is a good medicine to start treatment with. In the presence of mitral regurgitation we have to consider that that may be the etiology of the pulmonary hypertension. Also the patient has a past history of phlebitis so we need to rule out occult deep venous thrombophlebitis disease. 5. Anemia. 6. Hypothyroidism on replacement. 7. Hyperlipidemia 8. History of high blood pressure. Left ventricular hypertrophy 9. Atrial fib. 10. Gout. Plan. 1. Consult cardiology. Patient needs evaluation of atrial fib and mitral regurgitation. 2. Doppler venograms of the lower extremities. 3. Treatment of anemia may help her exercise tolerance. 4. Consider physical therapy consultation. 5. Follow-up chest x-ray. E PA and lateral. 6. See order Home Medications Medication Instructions Recorded Confirmed Type Allopurinol [Allopurinol] 150 mg PO DAILY 12/06/16 12/07/16 History Amlodipine Besylate [Amlodipine 7.5 mg PO DAILY 12/06/16 12/07/16 History Besylate] Citalopram [CeleXA] 20 mg PO DAILY 12/06/16 12/07/16 History Fenofibrate [Fenofibrate] 160 mg PO DAILY W/BREAKFAST 12/06/16 12/06/16 History Gabapentin [Gabapentin] 300 mg PO DAILY 12/06/16 12/07/16 History Levothyroxine Tab [Synthroid Tab] 125 mcg PO DAILY@0700 12/06/16 12/06/16 History Metoprolol Tartrate [Metoprolol 100 mg PO BID 12/06/16 12/06/16 History Tartrate] Omeprazole [Omeprazole] 20 mg PO BID 12/06/16 12/06/16 History Ondansetron Tab [Zofran Tab] 4 mg PO Q8HR PRN 12/06/16 12/06/16 History Simvastatin [Simvastatin] 40 mg PO BEDTIME 12/06/16 12/07/16 History Torsemide [Torsemide] 5 mg PO DAILY 12/06/16 12/07/16 History cloNIDine TAB [Catapres Tab] 0.3 mg PO DAILY 12/06/16 12/07/16 History Allergies Allergy/AdvReac Type Severity Reaction Status Date / Time Sulfa (Sulfonamide Allergy Unknown/Unable Verified 12/06/16 14:14 Antibiotics) to obtain Exam (Pulmonay) H&P - Constitutional Vitals: Period Temp Pulse Resp BP Sys/Garcia Pulse Ox Last 24 Hr 97.6 F-98.6 F 55-59 18-20 154-165/59-82 96-99 Medical,Surgical,& Family Hx - Medical History Cardio: History of: Hypertension Endocrine: History of: Thyroid Disorder Respiratory: History of: Pneumonia Renal: History of: Renal Failure, Renal Problems ("kidney disease") - Surgical History Abdominal Surgeries: Surgical HX of: Cholecystectomy Reproductive Surgeries: Surgical HX of;: Hysterectomy Orthopedic Surgeries: Surgical HX of;: Spinal Surgery - Social History Smoking Status: Never smoker Frequency of Alcohol Use: None Type of Drug Use: None Results - Labs CBC & BMP: 12/09/16 01:51 12/08/16 10:34
[2016-12-10 11:39] LABS: Free T4 (Free Thyroxine) 1.42 NG/DL (0.76-1.46); Uric Acid 4.6 MG/DL (2.6-6.0)
--- NOTE | 2016-12-10 13:28 | Nephrology Progress Note ---
Nephrology - PN: Subj Interval history: No acute overnight events. Denies SOB/pain. Creatinine 4.8, unchanged. Hct improved. Exam (PN)-Nephrology - Vital Signs Vital signs: Period Temp Pulse Resp BP Sys/Garcia Pulse Ox Last 24 Hr 97.7 F-98.6 F 55-76 18-20 148-165/59-82 96-99 - General Appearance General appearance: appears started age, frail EENT: ATNC, PERRL Neck: no JVD, no thyromegaly Respiratory: kyphosis, clear Cardiology: no murmurs, no rub, no edema Gastrointestinal: normoactive bowel sounds, no guarding Integumentary: no rash, warm and dry Neurologic: no focal deficit, no asterixis Musculoskeletal: no deformities, no erythema Psychiatric: depressed, cooperative - Lab 12/09/16 01:51 12/08/16 10:34 Most recent lab results Calcium 8.1 MG/DL (8.5-10.1) L 12/08/16 10:34 Assessment and Plan (1) CKD (chronic kidney disease) stage 5, GFR less than 15 ml/min Problem details: No acute indication for HD at this time. Status: Acute Assessment and plan: No new recs. No uremic symptoms. Continue current conservative management. Renally dose all meds for eGFR 8cc/min. Current Visit: Yes
--- NOTE | 2016-12-10 13:52 | Cardiology Consult Note ---
Assessment and Plan (1) KAY (dyspnea on exertion) Status: Acute Assessment and plan: The patient has chronic dyspnea on exertion which is likely multifactorial in origin. She had significant anemia, pneumonia, a pleural effusion, advanced age , deconditioning, as well as pulmonary hypertension. Her pneumonia, anemia and pleural effusion have been treated with improvement in her breathing. She is also on reasonable treatment for her pulmonary hypertension. There was also a question about atrial fibrillation, but review of her tracings shows that she is actually in sinus rhythm with occasional PACs. Current Visit: Yes (2) Anemia Status: Acute Assessment and plan: She has a marked anemia much may simply be due to her severe renal insufficiency. This is better after transfusion. Certainly her anemia may have contributed to her chronic weakness and dyspnea. Current Visit: Yes (3) Pulmonary hypertension Status: Acute Assessment and plan: Patient has mild to moderate pulmonary hypertension. More than likely this is related to her advanced age with its associated increasing pulmonary vascular resistance. I think the Norvasc is a reasonable treatment for this. Ultimately , I think we simply have to treat her underlying conditions, including her hypertension, renal insufficiency, and anemia. Her mitral regurgitation is mild and I do not think it is contributing significantly to her pulmonary hypertension. Current Visit: Yes (4) Mitral regurgitation Status: Acute Assessment and plan: This is mild and I do not think it requires any specific treatment at this time. Current Visit: Yes (5) CKD (chronic kidney disease) stage 5, GFR less than 15 ml/min Problem details: No acute indication for HD at this time. Status: Acute Assessment and plan: I will defer management to nephrology. Current Visit: Yes (6) Generalized weakness Status: Acute Assessment and plan: The patient has severe diffuse generalized weakness. I am going to check a vitamin D level. Vitamin D deficiency has been associated with muscular weakness and falls in the elderly. Current Visit: Yes (7) Pleural effusion Status: Acute Assessment and plan: This is much better after thoracentesis. She had significant improvement in her breathing after this procedure. Current Visit: Yes (8) Pneumonia Status: Acute Assessment and plan: Treatment is ongoing and her breathing has improved since admission. Current Visit: Yes Qualifiers: Pneumonia type: due to unspecified organism Laterality: left Lung location: lower lobe of lung Qualified Code(s): J18.1 - Lobar pneumonia, unspecified organism (9) Hypertension Status: Acute Assessment and plan: The patient has mild hypertension which appears to be adequately controlled on her current medical regimen. Current Visit: Yes History of Present Illness - Consult Narrative History of present illness: Ms. Haas is a 86 year old female who has no prior cardiac history. The patient tells me that she is in the hospital because her body has become so weak she can no longer get around and take care of herself. The patient and her son state that a few weeks ago she became dehydrated and received some intravenous fluids from her primary physician. After discharge home she was profoundly weak and went to live with a family member. Over the course of time living there, her weakness has progressed to the point where she is unable to get up and move around much on her own at all. She had several falls as well. She gets short of breath with very light activity, and on admission here was noted to have a large pleural effusion. The patient had a thoracentesis and her breathing subsequently improved significantly. She has not had any anginal symptoms, palpitations, orthopnea, or PND. She denies any fever, chills, or cough. She has had some constipation and after laxatives had some diarrhea. In addition to the above issues, the patient has severe renal insufficiency with a creatinine clearance estimated at less than 10 mL/min. Since admission, she had an echocardiogram which showed normal left ventricular systolic function , mild valvular heart disease which is not unexpected given her age, and mild pulmonary hypertension with a pulmonary artery pressure estimated at 50 mmHg. In addition, she had an EKG which was interpreted as atrial fibrillation. However, review of her telemetry and EKG strips shows that she is actually in normal sinus rhythm at this time. She denies any previous history of myocardial infarction, angina, congestive heart failure, or cardiac arrhythmia. At the time I was seeing her, her chief complaint is diffuse generalized muscular weakness. In addition to the marked renal insufficiency, the patient had severe anemia with a hemoglobin of around 7. This is improved after 2 unit transfusion. CC: Joel Maria MD - Home Medications and Allergies Home Medications: Home Medications Medication Instructions Recorded Confirmed Type Allopurinol [Allopurinol] 150 mg PO DAILY 12/06/16 12/07/16 History Amlodipine Besylate [Amlodipine 7.5 mg PO DAILY 12/06/16 12/07/16 History Besylate] Citalopram [CeleXA] 20 mg PO DAILY 12/06/16 12/07/16 History Fenofibrate [Fenofibrate] 160 mg PO DAILY W/BREAKFAST 12/06/16 12/06/16 History Gabapentin [Gabapentin] 300 mg PO DAILY 12/06/16 12/07/16 History Levothyroxine Tab [Synthroid Tab] 125 mcg PO DAILY@0700 12/06/16 12/06/16 History Metoprolol Tartrate [Metoprolol 100 mg PO BID 12/06/16 12/06/16 History Tartrate] Omeprazole [Omeprazole] 20 mg PO BID 12/06/16 12/06/16 History Ondansetron Tab [Zofran Tab] 4 mg PO Q8HR PRN 12/06/16 12/06/16 History Simvastatin [Simvastatin] 40 mg PO BEDTIME 12/06/16 12/07/16 History Torsemide [Torsemide] 5 mg PO DAILY 12/06/16 12/07/16 History cloNIDine TAB [Catapres Tab] 0.3 mg PO DAILY 12/06/16 12/07/16 History Allergies/Adverse Reactions: Allergies Allergy/AdvReac Type Severity Reaction Status Date / Time Sulfa (Sulfonamide Allergy Unknown/Unable Verified 12/06/16 14:14 Antibiotics) to obtain 12 point system: reviewed and no additional remarkable complaints except as stated Medical,Surgical,& Family Hx - Medical History Cardio: History of: Hypertension Endocrine: History of: Thyroid Disorder Respiratory: History of: Pneumonia Renal: History of: Renal Failure, Renal Problems ("kidney disease") - Surgical History Abdominal Surgeries: Surgical HX of: Cholecystectomy Reproductive Surgeries: Surgical HX of;: Hysterectomy Orthopedic Surgeries: Surgical HX of;: Spinal Surgery - Social History Smoking Status: Never smoker Frequency of Alcohol Use: None Type of Drug Use: None Physical Examination Vital Signs Temp Pulse Resp BP Pulse Ox 98.5 F 60 20 171/72 94 L 12/06/16 14:07 12/06/16 14:07 12/06/16 14:07 12/06/16 14:07 12/06/16 14:07 Other: General: Frail, elderly, chronically ill-appearing HEENT: Normocephalic, atraumatic Neck: Supple Neck, Midline Trachea Cardiac: Regular rhythm, 2/6 systolic murmur, no gallop, no rub Lungs: Clear to Ascultation, No Wheeze, Rales, Rhonchi Neuro: Cranial Nerve 2-12 Intact, diffuse generalized weakness Abdomen: Soft, Active Bowel Sounds, No Masses, No Pulsations/Bruits Skin: Normal color, no rash Extremities: No Clubbing, No Cyanosis, No Edema, Normal Upper Extr. Pulses Musculoskeletal: No acute abnormality noted Psychiatric: The patient is alert and oriented. The patient has a flat affect but does not appear to be anxious or depressed. Result/EKG - Labs CBC & BMP: 12/09/16 01:51 12/08/16 10:34 Lab Results: I have reviewed the past 24 hour labs Labs: Laboratory Results - last 24 hr 12/10/16 12/10/16 10:45 10:45 Uric Acid 4.6 B-Natriuretic Peptide 991 H Free T4 1.42 - EKG EKG results: interpreted by me
[2016-12-10] MEDS: ASCORBIC ACID 500 MG TABLET PO SCH ×2 (14:31→20:10)
--- NOTE | 2016-12-10 14:38 | Ultrasound Report ---
Indication: Bilateral lower history swelling/edema Duplex scan of the bilateral lower extremity veins Technique: Duplex scan of the bilateral lower extremity veins using B-mode/grayscale imaging and Doppler spectral analysis and color flow Findings: Major venous structures of the bilateral lower extremity demonstrate a normal course and caliber. There is no evidence of deep vein thrombosis. No abnormal intrinsic echogenic lesions are demonstrated in the scanned blood vessels. Veins demonstrate good compressibility with normal color flow study and spectral analysis. A popliteal fossa cyst measuring 3.7 x 1 x 3.2 cm is noted on the right. Impression: Unremarkable duplex imaging of the bilateral lower extremity veins. No evidence of DVT PROCEDURE INTERPRETED AT [facility] DEPARTMENT OF RADIOLOGY Final Report Signed by: Byron Whitlock
[2016-12-10] MEDS: LEVOFLOXACIN INJ 500 MG in PREMIX 1 EACH IV SCH (16:20)
[2016-12-10] MEDS: ENOXAPARIN 30 MG/0.3 ML SYRINGE SUBCUT SCH (20:09)
[2016-12-10] MEDS: FENOFIBRATE 160 MG TABLET PO SCH (20:10)
[2016-12-10] MEDS: SIMVASTATIN 40 MG TABLET PO SCH (20:10)
[2016-12-11 05:17] LABS: Basophils % 0.2 % (0.0-0.8); Eosinophils # 0.1 10*3/uL (0.0-0.87); Eosinophils % 1.8 % (0.00-10.9); Hematocrit 28.2 VOL% (35.7-47.0); Immature Granulocytes % 0.4 %; Immature Granulocytes Absolute 0.02 #; Lymphocytes # 1.7 10*3/uL (1.4-4.0); Lymphocytes % 31.4 % (21.3-54.2); Mean Corpuscular HGB Conc 31.9 GM/DL (32-36); Mean Corpuscular Hemoglobin 30 PG (27-34); Mean Corpuscular Volume 92.8 FL (87-102); Mean Platelet Volume 12.1 FL (9.6-12.0); Monocytes # 0.5 10*3/uL (0.11-0.8); Monocytes % 9.9 % (1.7-12.7); Neutrophils # 3.1 10*3/uL (1.4-7.4); Neutrophils % 56.3 % (38.7-73.9); Platelet Count 120 T/CUMM (130-400); Red Blood Count 3.04 MC/CUMM (3.8-5.5); Red Cell Distribution Width 16.4 % (9.3-17.3); White Blood Count 5.5 T/CUMM (4-12)
[2016-12-11 05:48] LABS: Calcium 8.3 MG/DL (8.5-10.1); Potassium 4.5 MMOL/L (3.5-5.1)
[2016-12-11] MEDS: LEVOTHYROXINE 125 MCG TABLET PO SCH (06:37)
[2016-12-11] MEDS: ALLOPURINOL 300 MG TABLET PO SCH (08:29)
[2016-12-11] MEDS: ASCORBIC ACID 500 MG TABLET PO SCH ×2 (08:30→20:39)
[2016-12-11] MEDS: GABAPENTIN 300 MG CAPSULE PO SCH (08:31)
[2016-12-11] MEDS: amLODIPine 5 MG TABLET PO SCH (08:31)
[2016-12-11] MEDS: PANTOPRAZOLE 40 MG TABLET PO SCH ×2 (08:32→20:40)
[2016-12-11] MEDS: CITALOPRAM 20 MG TABLET PO SCH (08:32)
[2016-12-11] MEDS: METOPROLOL TARTRATE 100 MG TABLET PO SCH ×2 (08:32→20:40)
[2016-12-11] MEDS: TORSEMIDE 20 MG TABLET PO SCH (08:32)
--- NOTE | 2016-12-11 09:50 | XRay Report ---
History: Pleural effusion. Postop thoracentesis Date: 12/11/2016 Study: Chest x-ray PA and lateral Comparison exam: December 07, 2016 There is mild cardiomegaly. The mediastinal contour is unchanged. There is moderate aortic arch calcification. The pulmonary vasculature is not engorged. There is mild left greater than right pleural effusion. There is some mild strandy atelectatic change in the lung bases. Osseous structures are unchanged. Impression: Mild left greater than right bibasilar pleural effusion and atelectasis. No pneumothorax. Stable cardiomegaly PROCEDURE INTERPRETED AT [facility] [place] DEPARTMENT OF RADIOLOGY Final Report Signed by: Dr. Angie Roque
--- NOTE | 2016-12-11 11:08 | Pulmonology Progress Note ---
Pulmonary - PN: Subj Interval history: Jorge Kumar, ANP-BC, GNP-BC, acting as scribe for Dr. Sammy Vieira Mrs. Haas is an 86-year-old white female who was seen in initial pulmonary consultation on 12/11/2016. At that time, our impressions were: 1. Left pleural effusion. Transudate. Etiology undetermined 2. Chronic renal failure. Followed by Dr. Jose Soria 3. Mild mitral valve regurgitation 4. Pulmonary artery pressures of 50 mmHg. Mild pulmonary hypertension. Note the patient's on Norvasc 7-1/2 mg daily which is a good medicine to start treatment with. In the presence of mitral regurgitation we have to consider that that may be the etiology of the pulmonary hypertension. Also the patient has a past history of phlebitis so we need to rule out occult deep venous thrombophlebitis disease. 5. Anemia. 6. Hypothyroidism on replacement. 7. Hyperlipidemia 8. History of high blood pressure. Left ventricular hypertrophy 9. Atrial fib. 10. Gout. 12/11/2016. The patient was seen today along with multiple family members. From a pulmonary standpoint the patient is doing well. Female family member who I presume is her granddaughter asked about the possibility of a PICC line placement if she was going to have to continue IV antibiotics and blood work. We have asked that she speak with the attending hospitalist about this. Patient does have upper extremity positional edema. We have shown exercises to decrease this. Doppler venograms showed no evidence of deep venous thrombophlebitis. The patient's pleural fluid from thoracentesis has grown no organisms at 48 hours. Blood cultures are negative thus far. She has been seen in cardiology consultation by Dr. Pinto. His note has been reviewed. Today's chest x-ray shows that the left pleural effusion is returning. There is also mild blunting of the right costophrenic angle. This looks like congestive heart failure. Note, pleural fluid from previous thoracentesis was a transudate. Medications have been reviewed. We made no changes today. Labs been reviewed. White count is 5500 with a normal differential; H&H 9.0/ 28.2; platelet count 120,000; creatinine 4.60, BUN 59, electrolytes are normal; calcium 8.3 (note, vitamin D level is pending) Exam (Progress Note) - Constitutional Vitals: Period Temp Pulse Resp BP Sys/Garcia Pulse Ox Last 24 Hr 97.7 F-98.9 F 58-76 18-20 127-162/60-85 92-96 Exam: Chest is fairly clear Heart no gallop Abdomen is nontender and nondistended; bowel sounds are positive 4 Extremities with nothing to suggest acute deep venous thrombophlebitis; note, Doppler venograms were negative; upper extremity positional edema noted bilaterally Psychiatric oriented 3 Neurologic long-term motor function is intact Plan: Continue present treatment. Note, the patient is on Demadex 10 mg daily which is an increase from her home dose of 5 mg daily. She has chronic renal failure. She is being followed in cardiology consultation. See orders. Results - Labs CBC & BMP: 12/11/16 04:57 12/11/16 04:57
--- NOTE | 2016-12-11 17:03 | Cardiology Progress Note ---
Douglas Antoine Vanessa, RN, am scribing for, and in the presence of, Jesse Cheema MD 17:03. Assessment and Plan - Time spent with patient Time spent with patient: Greater than 30 minutes (due to assessment, planning, documentation, and medication review) (1) Anemia Status: Acute Assessment and plan: This is improved after 2 units PRBC transfusion, and significant anemia could have most definitely contributed to her weakness and dyspnea. No overt signs of bleeding, and anemia may be contributed to severe renal dysfunction. Current Visit: Yes (2) CKD (chronic kidney disease) stage 5, GFR less than 15 ml/min Problem details: No acute indication for HD at this time. Status: Chronic Assessment and plan: Creatinine 4.6 with GFR of 8. Nephrology is following, and at this time she is not requiring hemodialysis. Current Visit: Yes (3) KAY (dyspnea on exertion) Status: Chronic Assessment and plan: Patient is chronically dyspneic on exertion. This is most likely multifactorial in nature. Current Visit: Yes (4) Generalized weakness Status: Acute Assessment and plan: H in general debility could play an important part in this. She is being evaluated for home health with physical and occupational therapy at time of discharge. Current Visit: Yes (5) Hypertension Status: Chronic Assessment and plan: Overall, this is fairly well controlled at this time. Continue current medication regimen. Current Visit: Yes (6) Mitral regurgitation Status: Chronic Assessment and plan: Mild MR per 2D echo. Current Visit: Yes (7) Pleural effusion Status: Acute Assessment and plan: Status post left thoracentesis with removal of 600 cc transudate pleural fluid. Patient's dyspnea did improve significantly after thoracentesis. Current Visit: Yes (8) Pulmonary hypertension Status: Chronic Assessment and plan: Mild to moderate pulmonary hypertension per 2D echo. Current Visit: Yes Cardiology - PN: Subj Interval history: PRIMARY PHOTOCOPIER TECHNICIAN: DR. MASSEY (NEW) SUMMARY: Ms. Haas is an 86-year-old risk factors significant for: Age, hypertension, sedentary lifestyle. Past medical history includes thyroid disorder, chronic kidney disease, and is routinely followed per Dr. Soria. Patient was admitted home December 06 with weakness for 2 days. She had recently been treated for dehydration and gastroenteritis 2 weeks prior to admission. Significant anemia with H&H of 7.1 and 22.9 at admission, and this has resolved since being transfused with 2 units PRBCs. Chest x-ray revealed large left pleural effusion , and she is now status post left thoracentesis with 600 cc transudate fluid removed. EKG was questionable for atrial fibrillation, but review of EKG and cardiac monitoring reveals sinus rhythm with occasional PAC. Cardiology has been consulted, and echocardiogram has been obtained and reviewed. Echo revealed LV ejection fraction 50-55%, mild LVH, moderately thickened mitral valve with mild MR, mild AV sclerosis without stenosis, TR with a PA pressure of 50 mmHg. DECEMBER 11, 2016: Patient seen and examined. She is awake, alert, and is pleasant today. Family is present at bedside. Overall, patient reports that she feels better today. No acute distress noted, and she denies shortness of breath while at rest or experiencing any chest pain or other anginal complaint. She has been able to get up with assistance, and reports that her dyspnea on exertion is somewhat improved. Afebrile, BP overall stable. Pulse rate in the 50s and 60s and is regular by exam. Patient is being evaluated for home health with physical and occupational therapy at discharge home. Labs reviewed. H&H 9.0 and 28.2. Potassium is 4.5. Creatinine without significant change is 4.6 with GFR of 8. Free T4 1.42. BNP of 991 noted yesterday. Venous Doppler ultrasound of bilateral lower extremities negative for DVT finding. She is stable cardiac gibbs and we are planning to continue as currently. She feels better after thoracentesis. Renal function is significantly decreased but stable. Exam (Progress Note) - Constitutional Vitals: Period Temp Pulse Resp BP Sys/Garcia Pulse Ox Last 24 Hr 97.7 F-98.9 F 58-76 18-20 127-162/60-85 92-96 Exam: General: Frail, elderly, chronically ill-appearing HEENT: Normocephalic, atraumatic Neck: Supple Neck, Midline Trachea. Cardiac: Regular rhythm, 2/6 systolic murmur, no gallop, no rub. Lungs: Clear to Ascultation bilaterally. No Wheeze, Rales, Rhonchi Neuro: Cranial Nerve 2-12 Intact, diffuse generalized weakness. No resting tremor appreciated. Abdomen: Soft, Active Bowel Sounds, No Masses, No Pulsations/Bruits Skin: Normal color, no rash. Skin is warm and dry. Extremities: No Clubbing, No Cyanosis, No Edema, Normal Upper Extr. Pulses Musculoskeletal: No acute abnormality noted Psychiatric: The patient is alert and oriented. Slightly flat affect, but she does not appear to be anxious or depressed. Result/EKG - Labs CBC & BMP: 12/11/16 04:57 12/11/16 04:57 Lab Results: I have reviewed the past 24 hour labs Labs: Laboratory Results - last 24 hr 12/10/16 12/10/16 12/11/16 10:45 10:45 04:57 WBC 5.5 RBC 3.04 L D Hgb 9.0 L Hct 28.2 L MCV 92.8 MCH 30 MCHC 31.9 L RDW 16.4 Plt Count 120 L MPV 12.1 H Neut % (Auto) 56.3 Lymph % (Auto) 31.4 [place] % (Auto) 9.9 Eos % (Auto) 1.8 Baso % (Auto) 0.2 Neut # (Auto) 3.1 Lymph # (Auto) 1.7 [place] # (Auto) 0.5 Eos # (Auto) 0.1 Baso # (Auto) 0.0 Immature Gran % 0.4 Nucleated RBC % 0.0 Immature Gran # 0.02 Nucleated RBCs # 0.00 Sodium Potassium Chloride Carbon Dioxide Anion Gap BUN Creatinine GFR Calculation BUN/Creatinine Ratio Glucose Calculated Osmolality Uric Acid 4.6 Calcium B-Natriuretic Peptide 991 H Free T4 1.42 12/11/16 04:57 WBC RBC Hgb Hct MCV MCH MCHC RDW Plt Count MPV Neut % (Auto) Lymph % (Auto) [place] % (Auto) Eos % (Auto) Baso % (Auto) Neut # (Auto) Lymph # (Auto) [place] # (Auto) Eos # (Auto) Baso # (Auto) Immature Gran % Nucleated RBC % Immature Gran # Nucleated RBCs # Sodium 143 Potassium 4.5 Chloride 107 Carbon Dioxide 25 Anion Gap 15.5 H BUN 59 H Creatinine 4.60 H GFR Calculation 8 BUN/Creatinine Ratio 12.00 Glucose 90 Calculated Osmolality 301.0 Uric Acid Calcium 8.3 L B-Natriuretic Peptide Free T4 - EKG EKG results: interpreted by me, no acute changes EKG shows: sinus rhythm IDeni Wesley, MD, personally performed the services described in this documentation, ascribed by Arely Cole RN in my presence, and it is both accurate and complete 703 .
--- NOTE | 2016-12-11 20:03 | Hospitalist Progress Note ---
Assessment and Plan - Time spent with patient Time spent with patient: Greater than 30 minutes (1) Generalized weakness Status: Acute Current Visit: Yes (2) Pneumonia Status: Acute Current Visit: Yes Qualifiers: Pneumonia type: due to unspecified organism Laterality: left Lung location: lower lobe of lung Qualified Code(s): J18.1 - Lobar pneumonia, unspecified organism (3) Chronic kidney disease, stage IV (severe) Status: Acute Current Visit: Yes (4) Pleural effusion Status: Acute Current Visit: Yes (5) Anemia Status: Acute Current Visit: Yes Qualifiers: Chronic kidney disease stage: stage 5, not on chronic dialysis (6) Hypertension Status: Chronic Current Visit: Yes Qualifiers: Hypertension type: essential hypertension Qualified Code(s): I10 - Essential (primary) hypertension (7) CKD (chronic kidney disease) stage 5, GFR less than 15 ml/min Problem details: No acute indication for HD at this time. Status: Chronic Assessment and plan: Repeat BMP in a.m. Current Visit: Yes Hospitalist: Subjective Interval history: The patient is sitting up in chair at this time. She had a follow-up chest x- ray shows recurrent pleural effusion. No fevers or chills has been continue with IV antibiotics. At this time do not feel that a PICC line is warranted as patient's IV access is appropriate. Hematocrit is stable will follow up again tomorrow. Family members have expressed that they would prefer to go home with home health as opposed to residential options. Continue to observe for an additional 24 hours. Exam - Constitutional Vitals: Period Temp Pulse Resp BP Sys/Garcia Pulse Ox Last 24 Hr 97.7 F-98.9 F 55-63 18-20 127-156/60-85 92-98 General appearance: normal weight - Head Head exam: Present: normal inspection - ENT ENT exam: Present: normal exam - Respiratory Respiratory exam: Present: decreased breath sounds, rales, other - Cardiovascular Cardiovascular exam: Present: regular rate and rhythm - GI/Abdominal GI/Abdominal exam: Present: normal bowel sounds - Neurological Exam Neurological exam: Present: alert, oriented X3 Results - Labs CBC & BMP: 12/11/16 04:57 12/11/16 04:57
[2016-12-11] MEDS: FENOFIBRATE 160 MG TABLET PO SCH (20:39)
[2016-12-11] MEDS: SIMVASTATIN 40 MG TABLET PO SCH (20:40)
[2016-12-11] MEDS: ENOXAPARIN 30 MG/0.3 ML SYRINGE SUBCUT SCH (20:40)
--- NOTE | 2016-12-11 23:35 | Nephrology Progress Note ---
Nephrology - PN: Subj Interval history: She feels better overall. Denies shortness of breath at rest. She feels stronger after transfusion Exam (PN)-Nephrology - Vital Signs Vital signs: Period Temp Pulse Resp BP Sys/Garcia Pulse Ox Last 24 Hr 97.7 F-98.4 F 55-60 18-20 127-156/60-85 96-98 Exam: Gen.: Alert and oriented x3. ENT: Pupils equal round reactive to light. EOMs intact. Mucous membranes moist. Neck: Supple. No JVD or bruit. Cardiovascular: Regular rate and rhythm. No murmur rub or gallop Lungs: Clear Abdomen: Soft. Nontender. Positive bowel sounds. No organomegaly Extremities: No edema - Lab 12/11/16 04:57 12/11/16 04:57 Most recent lab results Calcium 8.3 MG/DL (8.5-10.1) L 12/11/16 04:57 Assessment and Plan (1) Chronic kidney disease, stage IV (severe) Status: Acute Assessment and plan: 86-year-old woman admitted with: * Pleural effusion. Status post thoracentesis. Continue current antibiotic * CRF stage IV. Baseline creatinine 3.1 in December 2016 * Acute on chronic renal failure. Creatinine slowly improving. PICC line is contraindicated in CRF stage IV * Anemia. Posttransfusion. Erythropoietin level pending Current Visit: Yes (2) Pleural effusion Status: Acute Current Visit: Yes (3) Anemia Status: Acute Current Visit: Yes Qualifiers: Chronic kidney disease stage: stage 5, not on chronic dialysis (4) Acute on chronic renal failure Status: Acute Current Visit: Yes
[2016-12-12] MEDS: LEVOTHYROXINE 125 MCG TABLET PO SCH (06:01)
[2016-12-12 06:13] LABS: Basophils % 0.2 % (0.0-0.8); Eosinophils # 0.1 10*3/uL (0.0-0.87); Eosinophils % 2.3 % (0.00-10.9); Immature Granulocytes % 0.6 %; Immature Granulocytes Absolute 0.03 #; Lymphocytes # 1.8 10*3/uL (1.4-4.0); Lymphocytes % 34.2 % (21.3-54.2); Mean Corpuscular Hemoglobin 29 PG (27-34); Mean Corpuscular Volume 92.7 FL (87-102); Mean Platelet Volume 12.6 FL (9.6-12.0); Monocytes # 0.5 10*3/uL (0.11-0.8); Monocytes % 10.5 % (1.7-12.7); Neutrophils # 2.7 10*3/uL (1.4-7.4); Neutrophils % 52.2 % (38.7-73.9); Platelet Count 122 T/CUMM (130-400); Red Blood Count 3.13 MC/CUMM (3.8-5.5); White Blood Count 5.1 T/CUMM (4-12)
[2016-12-12 07:36] LABS: Calcium 8.1 MG/DL (8.5-10.1)
[2016-12-12 07:53] LABS: Osmolality,Calculated 301.1 MOS/KG (273-304); Potassium 4.5 MMOL/L (3.5-5.1)
[2016-12-12] MEDS: amLODIPine 5 MG TABLET PO SCH (08:15)
[2016-12-12] MEDS: ASCORBIC ACID 500 MG TABLET PO SCH ×2 (08:16→20:27)
[2016-12-12] MEDS: CITALOPRAM 20 MG TABLET PO SCH (08:16)
[2016-12-12] MEDS: GABAPENTIN 300 MG CAPSULE PO SCH (08:16)
[2016-12-12] MEDS: METOPROLOL TARTRATE 100 MG TABLET PO SCH ×2 (08:17→20:29)
[2016-12-12] MEDS: PANTOPRAZOLE 40 MG TABLET PO SCH ×2 (08:17→20:27)
[2016-12-12] MEDS: ALLOPURINOL 300 MG TABLET PO SCH (08:17)
[2016-12-12] MEDS: TORSEMIDE 20 MG TABLET PO SCH (08:17)
--- NOTE | 2016-12-12 09:41 | Hospitalist Progress Note ---
Assessment and Plan (1) Chronic kidney disease, stage IV (severe) Status: Chronic Assessment and plan: Stable GFR during hospitalization. Possible chronic simple anemia secondary to advanced renal failure. Current Visit: Yes (2) Pleural effusion Status: Acute Assessment and plan: Left paracentesis returned with benign fluid thus far however fluid has reaccumulated. Patient's echocardiogram shows normal global left ventricular systolic performance with only mild to moderate pulmonary hypertension. Her serum albumin level was 2.8 with heavy urine protein on dipstick. Current Visit: Yes Hospitalist: Subjective Interval history: 86-year-old female with chronic renal insufficiency not requiring hemodialysis for management. She presented with increased edema associated with a left pleural effusion. Possible underlying pneumonia was considered. A thoracentesis performed on 07 December returned benign, however she has had slight recurrence of the effusion on follow-up chest x-ray done yesterday. She subjectively feels much better after the thoracentesis and her hemoglobin has remained stable on most recent determinations. Her echocardiogram demonstrated a ejection fraction of 50-55% with right ventricular systolic pressure of 50-55 mmHg. Her GFR has remained stable. Exam - Constitutional Vitals: Period Temp Pulse Resp BP Sys/Garcia Pulse Ox Last 24 Hr 97.7 F-98.3 F 55-63 18-21 111-156/55-67 93-98 General appearance: normal weight - Respiratory Respiratory exam: Present: decreased breath sounds (At left base). Absent: rales, rhonchi, wheezes - Cardiovascular Cardiovascular exam: Present: regular rate and rhythm - GI/Abdominal GI/Abdominal exam: Present: normal bowel sounds. Absent: distended, tenderness - Extremities Exam Extremities exam: Absent: edema - Neurological Exam Neurological exam: Present: alert, oriented X3 Results - Labs CBC & BMP: 12/12/16 04:51 12/12/16 04:51
--- NOTE | 2016-12-12 10:23 | XRay Report ---
XR chest 2V Indication: CHF Comparison: Chest x-ray dated December 11, 2016 Technique: Frontal and lateral views of the chest. Findings: Continued cardiomegaly. Continued left lower lung atelectasis/consolidation. Mildly increased small to moderate left-sided pleural fluid. Continued small right pleural fluid. Visualized osseous and surrounding soft tissue structures appear grossly unchanged. Diffuse osteopenia. IMPRESSION: As above. PROCEDURE INTERPRETED AT [facility] DEPARTMENT OF RADIOLOGY Final Report Signed by: Dr Johan Tolentino
--- NOTE | 2016-12-12 11:29 | Pulmonology Progress Note ---
Pulmonary - PN: Subj Interval history: Mrs. Haas is an 86-year-old white female who was seen in initial pulmonary consultation on 12/11/2016. At that time, our impressions were: 1. Left pleural effusion. Transudate. Etiology undetermined 2. Chronic renal failure. Followed by Dr. Jose Soria 3. Mild mitral valve regurgitation 4. Pulmonary artery pressures of 50 mmHg. Mild pulmonary hypertension. Note the patient's on Norvasc 7-1/2 mg daily which is a good medicine to start treatment with. In the presence of mitral regurgitation we have to consider that that may be the etiology of the pulmonary hypertension. Also the patient has a past history of phlebitis so we need to rule out occult deep venous thrombophlebitis disease. 5. Anemia. 6. Hypothyroidism on replacement. 7. Hyperlipidemia 8. History of high blood pressure. Left ventricular hypertrophy 9. Atrial fib. 10. Gout. 12/11/2016. The patient was seen today along with multiple family members. From a pulmonary standpoint the patient is doing well. Female family member who I presume is her granddaughter asked about the possibility of a PICC line placement if she was going to have to continue IV antibiotics and blood work. We have asked that she speak with the attending hospitalist about this. Patient does have upper extremity positional edema. We have shown exercises to decrease this. Doppler venograms showed no evidence of deep venous thrombophlebitis. The patient's pleural fluid from thoracentesis has grown no organisms at 48 hours. Blood cultures are negative thus far. She has been seen in cardiology consultation by Dr. Pinto. His note has been reviewed. Today's chest x-ray shows that the left pleural effusion is returning. There is also mild blunting of the right costophrenic angle. This looks like congestive heart failure. Note, pleural fluid from previous thoracentesis was a transudate. Medications have been reviewed. We made no changes today. Labs been reviewed. White count is 5500 with a normal differential; H&H 9.0/ 28.2; platelet count 120,000; creatinine 4.60, BUN 59, electrolytes are normal; calcium 8.3 (note, vitamin D level is pending) 12/12/2016. Today's chest x-ray shows cardiomegaly. There is a tiny amount of fluid which blunts the right costophrenic angle. There is a small left pleural effusion which is returned since the patient had a thoracentesis which showed a transudate. This effusion appears to be benign and may be related to heart failure or uremic irritation of the pleura. Patient has a left ventricular ejection fraction which is estimated to be 50-55% there is left ventricular hypertrophy and a moderately thickened mitral valve with mild mitral valve regurgitation. Pulmonary artery pressures of 50 mmHg in this case are likely related to the mitral regurgitation. Patient has chronic renal failure with a creatinine of 4.60 and a BUN is 63. Electrolytes are normal. H&H is up to 9.0/ 29.0. White count is 5100 with 52 segs 34 lymphs 10 monos. Calcium is been low. Thyroid function tests are normal and nitrated peptide to been elevated. At this point my only suggestion would be to try additional diuresis. Exam (Progress Note) - Constitutional Vitals: Period Temp Pulse Resp BP Sys/Garcia Pulse Ox Last 24 Hr 97.7 F-98.9 F 58-76 18-20 127-162/60-85 92-96 Exam: Psychiatric. Appears to be oriented 3. Family is present. Face. Symmetrical. Lips and tongue are normal. Neck. Symmetrical. No meningismus. Lymphatics. No submandibular cervical supraclavicular or epitrochlear adenopathy. Chest is fairly clear Heart no gallop Abdomen is nontender and nondistended; bowel sounds are positive 4 Extremities with nothing to suggest acute deep venous thrombophlebitis; note, Doppler venograms were negative; upper extremity positional edema noted bilaterally Neurologic long-term motor function is intact. Cranial nerves are intact with decreased hearing acuity. Plan: 1. Continue present treatment. Note, the patient is on Demadex 10 mg daily which is an increase from her home dose of 5 mg daily. She has chronic renal failure. She is being followed in cardiology consultation. See orders. 2. 12/12/2016. See my note above. Exam (Progress Note) - Constitutional Vitals: Period Temp Pulse Resp BP Sys/Garcia Pulse Ox Last 24 Hr 97.7 F-98.3 F 55-63 18-21 111-156/55-67 93-98 Results - Labs CBC & BMP: 12/12/16 04:51 12/12/16 04:51
--- NOTE | 2016-12-12 15:18 | Cardiology Progress Note ---
Douglas Antoine Vanessa, RN, am scribing for, and in the presence of, Jesse Cheema MD 15:17. Assessment and Plan - Time spent with patient Time spent with patient: Greater than 30 minutes (1) Anemia Status: Acute Assessment and plan: Remained stable status post 2 units PRBC transfusion. Significant anemia present on admission most definitely could have contributed to weakness and dyspnea continues to be without overt signs of bleeding. Anemia can also be contributed to her severe renal dysfunction. Current Visit: Yes Qualifiers: Chronic kidney disease stage: stage 5, not on chronic dialysis (2) CKD (chronic kidney disease) stage 5, GFR less than 15 ml/min Problem details: No acute indication for HD at this time. Status: Chronic Assessment and plan: Creatinine remains unchanged 4.6 with GFR of 8. Nephrology is following, and at this time she is not requiring hemodialysis. Current Visit: Yes (3) KAY (dyspnea on exertion) Status: Chronic Assessment and plan: Patient is chronically dyspneic on exertion. This is most likely multifactorial in nature. Current Visit: Yes (4) Generalized weakness Status: Acute Assessment and plan: H in general debility could play an important part in this. She is being evaluated for home health with physical and occupational therapy at time of discharge. She has been increasing her activity with assistance and ambulating from bed to chair and back to bed. Current Visit: Yes (5) Hypertension Status: Chronic Assessment and plan: This remains fairly well controlled at the time. Continue current medication regimen. Current Visit: Yes Qualifiers: Hypertension type: essential hypertension Qualified Code(s): I10 - Essential (primary) hypertension (6) Mitral regurgitation Status: Chronic Assessment and plan: Mild MR per 2D echo. Current Visit: Yes (7) Pleural effusion Status: Acute Assessment and plan: Status post left thoracentesis with removal of 600 cc transudate pleural fluid. Patient's dyspnea did improve significantly after thoracentesis. Follow-up chest x-ray with mild bibasilar pleural effusion with left slightly greater than right. No significant shortness of breath at rest. Current Visit: Yes (8) Pulmonary hypertension Status: Chronic Assessment and plan: Mild to moderate pulmonary hypertension per 2D echo. Current Visit: Yes Cardiology - PN: Subj Interval history: PRIMARY BOAT OUTFITTER: DR. MASSEY ([place]) SUMMARY: Ms. Haas is an 86-year-old risk factors significant for: Age, hypertension, sedentary lifestyle. Past medical history includes thyroid disorder, chronic kidney disease, and is routinely followed per Dr. Soria. Patient was admitted home December 06 with weakness for 2 days. She had recently been treated for dehydration and gastroenteritis 2 weeks prior to admission. Significant anemia with H&H of 7.1 and 22.9 at admission, and this has resolved since being transfused with 2 units PRBCs. Chest x-ray revealed large left pleural effusion , and she is now status post left thoracentesis with 600 cc transudate fluid removed. EKG was questionable for atrial fibrillation, but review of EKG and cardiac monitoring reveals sinus rhythm with occasional PAC. Cardiology has been consulted, and echocardiogram has been obtained and reviewed. Echo revealed LV ejection fraction 50-55%, mild LVH, moderately thickened mitral valve with mild MR, mild AV sclerosis without stenosis, TR with a PA pressure of 50 mmHg. December: No acute changes or new findings in patient's hemodynamic status overnight. Afebrile, vitals stable. She is awake and alert this morning and in no acute distress. Reports she rested fairly well overnight, and she denies chest pain, shortness of breath at rest, or other complaint at this time. Appetite is fair. From a cardiac standpoint, she is doing well. Labs reviewed. H&H 9.0 and 29.0. Potassium is 4.5. Renal function with no significant change and creatinine is 4.6 with a GFR of 8. Exam (Progress Note) - Constitutional Vitals: Period Temp Pulse Resp BP Sys/Garcia Pulse Ox Last 24 Hr 97.7 F-98.3 F 55-60 18-21 111-156/55-67 93-98 Exam: General: Frail, elderly, chronically ill-appearing HEENT: Normocephalic, atraumatic Neck: Supple Neck, Midline Trachea. Cardiac: Regular rhythm, 2/6 systolic murmur, no gallop, no rub. Lungs: Clear to Ascultation bilaterally. No Wheeze, Rales, Rhonchi Neuro: Cranial Nerve 2-12 Intact, diffuse generalized weakness. No resting tremor appreciated. Abdomen: Soft, Active Bowel Sounds, No Masses, No Pulsations/Bruits Skin: Normal color, no rash. Skin is warm and dry. Extremities: No Clubbing, No Cyanosis, No Edema, Normal Upper Extr. Pulses Musculoskeletal: No acute abnormality noted Psychiatric: The patient is alert and oriented. Patient does not appear to be anxious or depressed. Result/EKG - Labs CBC & BMP: 12/12/16 04:51 12/12/16 04:51 Lab Results: I have reviewed the past 24 hour labs Labs: Laboratory Results - last 24 hr 12/12/16 04:51 WBC 5.1 RBC 3.13 L Hgb 9.0 L Hct 29.0 L MCV 92.7 MCH 29 MCHC 31.0 L RDW 16.0 Plt Count 122 L MPV 12.6 H Neut % (Auto) 52.2 Lymph % (Auto) 34.2 [place] % (Auto) 10.5 Eos % (Auto) 2.3 Baso % (Auto) 0.2 Neut # (Auto) 2.7 Lymph # (Auto) 1.8 [place] # (Auto) 0.5 Eos # (Auto) 0.1 Baso # (Auto) 0.0 Immature Gran % 0.6 Nucleated RBC % 0.0 Immature Gran # 0.03 Nucleated RBCs # 0.00 - EKG EKG results: interpreted by me, no acute changes EKG shows: sinus rhythm IDeni Wesley, MD, personally performed the services described in this documentation, ascribed by Arely Cole RN in my presence, and it is both accurate and complete 517 .
--- NOTE | 2016-12-12 15:57 | Case Mgmt Physician Query Form ---
TB Signs and Symptoms Screening ([place]) INSTRUCTIONS: To be completed annually on residents/staff with a significant Tuberculin Skin Test (TST) upon admission/hire or a prior significant TST. To be completed on all staff at hire. Please respond to each listed symptom with an (X) in either the "YES" or "NO" box. Do you currently have any of the following symptoms: YES NO ( ) ( x) A cough If yes, is it: ( ) Productive ( ) Non- productive ( ) ( x) Hemoptysis (spitting up blood) ( ) ( x) Chest pains ( ) ( x) Weight Loss ( ) ( x) Fever ( ) ( x) Night Sweats ( ) ( x) Weakness ( ) ( x) Loss of Appetite ( ) ( x) Difficulty Breathing If you answered YES" to any of the above questions, how long have symptoms been present? Comments: JAY
[2016-12-12] MEDS ORDERED: TUBERCULIN SKIN TEST 0.1 ML SYRINGE INTRADERM ONE (16:22)
[2016-12-12] MEDS: LEVOFLOXACIN INJ 500 MG in PREMIX 1 EACH IV SCH (17:52)
--- NOTE | 2016-12-12 18:57 | Nephrology Progress Note ---
Nephrology - PN: Subj Interval history: No shortness of breath at rest. Nonproductive cough Exam (PN)-Nephrology - Vital Signs Vital signs: Period Temp Pulse Resp BP Sys/Garcia Pulse Ox Last 24 Hr 97.8 F-98.3 F 54-63 18-21 111-156/55-67 93-98 Exam: ENT: Normal Cardiovascular: Regular rate and rhythm. No murmur rub or gallop Lungs: No rales or wheezes Extremities: No edema - Lab 12/12/16 04:51 12/12/16 04:51 Most recent lab results Calcium 8.1 MG/DL (8.5-10.1) L 12/12/16 04:51 Assessment and Plan (1) Chronic kidney disease, stage IV (severe) Status: Chronic Assessment and plan: 86-year-old woman admitted with: * Pleural effusion. Status post thoracentesis. Continue current antibiotic * Atelectasis. Incentive spirometry * CRF stage IV. Baseline creatinine 3.1 in December 2016 * Acute on chronic renal failure. Creatinine slowly improving. * Anemia. Posttransfusion. Erythropoietin level pending Current Visit: Yes (2) Pleural effusion Status: Acute Current Visit: Yes (3) Anemia Status: Acute Current Visit: Yes Qualifiers: Chronic kidney disease stage: stage 5, not on chronic dialysis (4) Acute on chronic renal failure Status: Acute Current Visit: Yes
[2016-12-12] MEDS: SIMVASTATIN 40 MG TABLET PO SCH (20:27)
[2016-12-12] MEDS: FENOFIBRATE 160 MG TABLET PO SCH (20:27)
[2016-12-12] MEDS: ENOXAPARIN 30 MG/0.3 ML SYRINGE SUBCUT SCH (20:27)
[2016-12-13 05:54] LABS: Basophils % 0.2 % (0.0-0.8); Eosinophils # 0.1 10*3/uL (0.0-0.87); Eosinophils % 1.7 % (0.00-10.9); Hematocrit 29.1 VOL% (35.7-47.0); Hemoglobin 9.1 GM/DL (12.0-16.0); Immature Granulocytes % 0.6 %; Immature Granulocytes Absolute 0.03 #; Lymphocytes # 1.7 10*3/uL (1.4-4.0); Lymphocytes % 32.4 % (21.3-54.2); Mean Corpuscular HGB Conc 31.3 GM/DL (32-36); Mean Corpuscular Hemoglobin 29 PG (27-34); Mean Corpuscular Volume 92.7 FL (87-102); Monocytes # 0.6 10*3/uL (0.11-0.8); Monocytes % 12.3 % (1.7-12.7); Neutrophils # 2.8 10*3/uL (1.4-7.4); Neutrophils % 52.8 % (38.7-73.9); Platelet Count 114 T/CUMM (130-400); Red Blood Count 3.14 MC/CUMM (3.8-5.5); Red Cell Distribution Width 16.4 % (9.3-17.3); White Blood Count 5.2 T/CUMM (4-12)
[2016-12-13] MEDS: LEVOTHYROXINE 125 MCG TABLET PO SCH (06:18)
[2016-12-13 06:22] LABS: Calcium 8.3 MG/DL (8.5-10.1); Osmolality,Calculated 298.3 MOS/KG (273-304); Potassium 4.7 MMOL/L (3.5-5.1)
[2016-12-13] MEDS: PANTOPRAZOLE 40 MG TABLET PO SCH ×2 (08:32→22:23)
[2016-12-13] MEDS: CITALOPRAM 20 MG TABLET PO SCH (08:32)
[2016-12-13] MEDS: amLODIPine 5 MG TABLET PO SCH (08:33)
[2016-12-13] MEDS: TORSEMIDE 20 MG TABLET PO SCH (08:33)
[2016-12-13] MEDS: ASCORBIC ACID 500 MG TABLET PO SCH ×2 (08:33→22:22)
[2016-12-13] MEDS: ALLOPURINOL 300 MG TABLET PO SCH (08:33)
[2016-12-13] MEDS: METOPROLOL TARTRATE 100 MG TABLET PO SCH ×2 (08:33→22:22)
[2016-12-13] MEDS: GABAPENTIN 300 MG CAPSULE PO SCH (08:33)
--- NOTE | 2016-12-13 08:42 | Hospitalist Progress Note ---
Assessment and Plan (1) Chronic kidney disease, stage IV (severe) Status: Chronic Assessment and plan: Stable GFR during hospitalization. Possible chronic simple anemia secondary to advanced renal failure. Current Visit: Yes (2) Pleural effusion Status: Acute Assessment and plan: Left paracentesis returned with benign fluid thus far however fluid has reaccumulated. Patient's echocardiogram shows normal global left ventricular systolic performance with only mild to moderate pulmonary hypertension. Her serum albumin level was 2.8 with heavy urine protein on dipstick. Current Visit: Yes Hospitalist: Subjective Interval history: 86-year-old female with chronic renal insufficiency managed medically had presented with increased edema associated with a left pleural effusion. Thoracentesis was performed on December 07 is returned benign. On follow-up chest x- ray there is been a slight recurrence. Her cardiac evaluation included a normal ejection fraction with mildly elevated right ventricular systolic pressure of 50-55 mmHg. Her renal function has remained stable during the hospital stay. Her hemoglobin has remained stable with mild thrombocytopenia in a pattern suggestive predominantly of an anemia of chronic disease although a early myelodysplastic pattern cannot be excluded at this age. Today she feels well she is notes no breathlessness. Exam - Constitutional Vitals: Period Temp Pulse Resp BP Sys/Garcia Pulse Ox Last 24 Hr 97 F-98.6 F 54-62 18-20 118-153/58-72 93-98 General appearance: normal weight - Respiratory Respiratory exam: Present: other. Absent: rales, rhonchi, wheezes - Cardiovascular Cardiovascular exam: Present: regular rate and rhythm - GI/Abdominal GI/Abdominal exam: Present: normal bowel sounds. Absent: tenderness - Extremities Exam Extremities exam: Absent: edema - Neurological Exam Neurological exam: Present: alert, oriented X3 Results - Labs CBC & BMP: 12/13/16 05:18 12/13/16 05:18
--- NOTE | 2016-12-13 10:52 | Pulmonology Progress Note ---
Pulmonary - PN: Subj Interval history: Mrs. Haas is an 86-year-old white female who was seen in initial pulmonary consultation on 12/11/2016. At that time, our impressions were: 1. Left pleural effusion. Transudate. Etiology undetermined 2. Chronic renal failure. Followed by Dr. Jose Soria 3. Mild mitral valve regurgitation 4. Pulmonary artery pressures of 50 mmHg. Mild pulmonary hypertension. Note the patient's on Norvasc 7-1/2 mg daily which is a good medicine to start treatment with. In the presence of mitral regurgitation we have to consider that that may be the etiology of the pulmonary hypertension. Also the patient has a past history of phlebitis so we need to rule out occult deep venous thrombophlebitis disease. 5. Anemia. 6. Hypothyroidism on replacement. 7. Hyperlipidemia 8. History of high blood pressure. Left ventricular hypertrophy 9. Atrial fib. 10. Gout. 12/11/2016. The patient was seen today along with multiple family members. From a pulmonary standpoint the patient is doing well. Female family member who I presume is her granddaughter asked about the possibility of a PICC line placement if she was going to have to continue IV antibiotics and blood work. We have asked that she speak with the attending hospitalist about this. Patient does have upper extremity positional edema. We have shown exercises to decrease this. Doppler venograms showed no evidence of deep venous thrombophlebitis. The patient's pleural fluid from thoracentesis has grown no organisms at 48 hours. Blood cultures are negative thus far. She has been seen in cardiology consultation by Dr. Pinto. His note has been reviewed. Today's chest x-ray shows that the left pleural effusion is returning. There is also mild blunting of the right costophrenic angle. This looks like congestive heart failure. Note, pleural fluid from previous thoracentesis was a transudate. Medications have been reviewed. We made no changes today. Labs been reviewed. White count is 5500 with a normal differential; H&H 9.0/ 28.2; platelet count 120,000; creatinine 4.60, BUN 59, electrolytes are normal; calcium 8.3 (note, vitamin D level is pending) 12/12/2016. Today's chest x-ray shows cardiomegaly. There is a tiny amount of fluid which blunts the right costophrenic angle. There is a small left pleural effusion which is returned since the patient had a thoracentesis which showed a transudate. This effusion appears to be benign and may be related to heart failure or uremic irritation of the pleura. Patient has a left ventricular ejection fraction which is estimated to be 50-55% there is left ventricular hypertrophy and a moderately thickened mitral valve with mild mitral valve regurgitation. Pulmonary artery pressures of 50 mmHg in this case are likely related to the mitral regurgitation. Patient has chronic renal failure with a creatinine of 4.60 and a BUN is 63. Electrolytes are normal. H&H is up to 9.0/ 29.0. White count is 5100 with 52 segs 34 lymphs 10 monos. Calcium is been low. Thyroid function tests are normal and nitrated peptide to been elevated. At this point my only suggestion would be to try additional diuresis. 12/13/2016. Today's labs been reviewed. Creatinine is 4.7 with a BUN of 62. Electrolytes are normal. H&H is 9.1/29.1. White count is 5253 segs 32 lymphs and 12 monos. Platelets are 114,000. See my note 12/12/2016. Left-sided pleural effusion was a transudate and is most likely related to either congestive heart failure or irritation of the pleura from uremia. Patient is not short of breath and she is comfortable lying flat in bed. My only other suggestion would be increased diuresis which may not be possible with her other problems. She has mild pulmonary hypertension and this is most likely related to mitral regurgitation. She has no peripheral edema and there is nothing to suggest right heart failure. From my standpoint this patient is stable. I will sign off. Reconsult whenever needed Exam (Progress Note) - Constitutional Vitals: Period Temp Pulse Resp BP Sys/Garcia Pulse Ox Last 24 Hr 97.7 F-98.9 F 58-76 18-20 127-162/60-85 92-96 Exam: Psychiatric. Appears to be oriented 3. A male family members present. Face. Symmetrical. Lips and tongue are normal. Neck. Symmetrical. No meningismus. Lymphatics. No submandibular cervical supraclavicular or epitrochlear adenopathy. Chest is clear. Expiration is normal. Heart no gallop Abdomen is nontender and nondistended; bowel sounds are positive 4 Extremities with nothing to suggest acute deep venous thrombophlebitis; note, Doppler venograms were negative; upper extremity positional edema noted bilaterally. There is no lower extremity edema. Neurologic long-term motor function is intact. Cranial nerves are intact with decreased hearing acuity. Plan: 1. Continue present treatment. Note, the patient is on Demadex 10 mg daily which is an increase from her home dose of 5 mg daily. She has chronic renal failure. She is being followed in cardiology consultation. See orders. 2. 12/12/2016. See my note above. 3. 12/13/2016. See today's note above. I will sign off. Reconsult whenever needed. Exam (Progress Note) - Constitutional Vitals: Period Temp Pulse Resp BP Sys/Garcia Pulse Ox Last 24 Hr 97 F-98.6 F 54-62 18-20 118-153/58-72 93-98 Results - Labs CBC & BMP: 12/13/16 05:18 12/13/16 05:18 Specialty Discharge - Follow Up or Referrals Follow up with: Christiano Pinto MD [Physician] - 2 Weeks (Follow-up at [facility] with Dr. Pinto in 2-4 weeks with EKG, BMP, magnesium level, CBC)
--- NOTE | 2016-12-13 15:57 | Cardiology Progress Note ---
Douglas Antoine Vanessa, RN, am scribing for, and in the presence of, Jesse Cheema MD 15:57. Assessment and Plan - Time spent with patient Time spent with patient: Greater than 30 minutes (1) Anemia Status: Acute Assessment and plan: Anemia is most likely secondary to significant renal dysfunction. H&H has been stable since transfusion of 2 units PRBC earlier this admission. Current Visit: Yes Qualifiers: Chronic kidney disease stage: stage 5, not on chronic dialysis (2) CKD (chronic kidney disease) stage 5, GFR less than 15 ml/min Problem details: No acute indication for HD at this time. Status: Chronic Assessment and plan: Creatinine remains stable and currently 4.7. Nephrology is following, and at this time she is not requiring hemodialysis. Current Visit: Yes (3) KAY (dyspnea on exertion) Status: Chronic Assessment and plan: Patient is chronically dyspneic on exertion. This is most likely multifactorial in nature. However, her shortness of breath at rest has resolved at this time. Current Visit: Yes (4) Generalized weakness Status: Acute Assessment and plan: H in general debility could play an important part in this. She is being evaluated for home health with physical and occupational therapy at time of discharge. She has been increasing her activity with assistance and ambulating from bed to chair and back to bed. Current Visit: Yes (5) Hypertension Status: Chronic Assessment and plan: This remains fairly well controlled at the time. Continue current medication regimen. Current Visit: Yes Qualifiers: Hypertension type: essential hypertension Qualified Code(s): I10 - Essential (primary) hypertension (6) Mitral regurgitation Status: Chronic Assessment and plan: Mild MR per 2D echo. Current Visit: Yes (7) Pleural effusion Status: Acute Assessment and plan: Status post left thoracentesis with removal of 600 cc transudate pleural fluid. Patient's dyspnea did improve significantly after thoracentesis. Follow-up chest x-ray with mild bibasilar pleural effusion with left slightly greater than right. She is not experiencing any shortness of breath at rest. Current Visit: Yes (8) Pulmonary hypertension Status: Chronic Assessment and plan: Mild to moderate pulmonary hypertension per 2D echo. Current Visit: Yes Cardiology - PN: Subj Interval history: PRIMARY FOREST MANAGEMENT PROFESSOR: DR. PINTO (NEW) SUMMARY: Ms. Haas is an 86-year-old risk factors significant for: Age, hypertension, sedentary lifestyle. Past medical history includes thyroid disorder, chronic kidney disease, and is routinely followed per Dr. Soria. Patient was admitted home December 06 with weakness for 2 days. She had recently been treated for dehydration and gastroenteritis 2 weeks prior to admission. Significant anemia with H&H of 7.1 and 22.9 at admission, and this has resolved since being transfused with 2 units PRBCs. Chest x-ray revealed large left pleural effusion , and she is now status post left thoracentesis with 600 cc transudate fluid removed. EKG was questionable for atrial fibrillation, but review of EKG and cardiac monitoring reveals sinus rhythm with occasional PAC. Cardiology has been consulted, and echocardiogram has been obtained and reviewed. Echo revealed LV ejection fraction 50-55%, mild LVH, moderately thickened mitral valve with mild MR, mild AV sclerosis without stenosis, TR with a PA pressure of 50 mmHg. December: Ms. Haas is awake and alert this morning. Her son is present with her at bedside. Patient appears to feel much better today, and she agrees with this. No shortness of breath at rest, and she has not experienced any chest pain or other complaint. Afebrile, vital signs have been stable with BP of 145/65. Pulse is 50s and 60s and regular. Labs reviewed. White blood cell count 5200. H&H is stable at 9.1 29.1. Potassium 4.0 magnesium is 2.0. Her creatinine without significant change and is 4.7. At this time, we have nothing further to add from a cardiac standpoint. We will sign off. Please reconsult us if needed during the course of admission. She can follow-up with Dr. Fox Pinto at [facility] clinic on outpatient basis. Exam (Progress Note) - Constitutional Vitals: Period Temp Pulse Resp BP Sys/Garcia Pulse Ox Last 24 Hr 97 F-98.6 F 54-62 18-20 118-153/58-72 93-98 Exam: General: Frail, elderly, chronically ill-appearing HEENT: Normocephalic, atraumatic Neck: Supple Neck, Midline Trachea. Cardiac: Regular rhythm, 2/6 systolic murmur, no gallop, no rub. Lungs: Clear to Ascultation bilaterally. No Wheeze, Rales, Rhonchi Neuro: Cranial Nerve 2-12 Intact, diffuse generalized weakness. No resting tremor appreciated. Abdomen: Soft, Active Bowel Sounds, No Masses, No Pulsations/Bruits Skin: Normal color, no rash. Skin is warm and dry. Extremities: No Clubbing, No Cyanosis, No Edema, Normal Upper Extr. Pulses Musculoskeletal: No acute abnormality noted Psychiatric: The patient is alert and oriented. Patient does not appear to be anxious or depressed. Result/EKG - Labs CBC & BMP: 12/13/16 05:18 12/13/16 05:18 Lab Results: I have reviewed the past 24 hour labs Labs: Laboratory Results - last 24 hr 12/13/16 12/13/16 05:18 05:18 WBC 5.2 RBC 3.14 L Hgb 9.1 L Hct 29.1 L MCV 92.7 MCH 29 MCHC 31.3 L RDW 16.4 Plt Count 114 L MPV 12.0 Neut % (Auto) 52.8 Lymph % (Auto) 32.4 [place] % (Auto) 12.3 Eos % (Auto) 1.7 Baso % (Auto) 0.2 Neut # (Auto) 2.8 Lymph # (Auto) 1.7 [place] # (Auto) 0.6 Eos # (Auto) 0.1 Baso # (Auto) 0.0 Immature Gran % 0.6 Nucleated RBC % 0.0 Immature Gran # 0.03 Nucleated RBCs # 0.00 Sodium 141 Potassium 4.7 Chloride 107 Carbon Dioxide 25 Anion Gap 13.7 BUN 62 H Creatinine 4.70 H GFR Calculation 8 BUN/Creatinine Ratio 13.00 Glucose 92 Calculated Osmolality 298.3 Calcium 8.3 L Magnesium 2.0 - EKG EKG results: interpreted by me, no acute changes EKG shows: sinus rhythm Specialty Discharge - Follow Up or Referrals Follow up with: Christiano Pinto MD [Physician] - 2 Weeks (Follow-up at [facility] clinic with Dr. Pinto in 2-4 weeks with EKG, BMP, magnesium level, CBC) I, Jsese Cheema MD, personally performed the services described in this documentation, ascribed by Arely Cole RN in my presence, and it is both accurate and complete [id number] .
[2016-12-13] MEDS: FENOFIBRATE 160 MG TABLET PO SCH (22:22)
[2016-12-13] MEDS: ENOXAPARIN 30 MG/0.3 ML SYRINGE SUBCUT SCH (22:23)
[2016-12-13] MEDS: SIMVASTATIN 40 MG TABLET PO SCH (22:23)
--- NOTE | 2016-12-13 22:58 | Nephrology Progress Note ---
Nephrology - PN: Subj Interval history: She feels better overall today. No S OB at rest Exam (PN)-Nephrology - Vital Signs Vital signs: Period Temp Pulse Resp BP Sys/Garcia Pulse Ox Last 24 Hr 97.3 F-98.6 F 54-74 16-20 115-152/53-70 93-98 Exam: ENT: Normal Cardiovascular: Regular rate and rhythm. No murmur rub or gallop Lungs: Clear Extremities: No edema - Lab 12/13/16 05:18 12/13/16 05:18 Most recent lab results Calcium 8.3 MG/DL (8.5-10.1) L 12/13/16 05:18 Magnesium 2.0 MG/DL (1.8-2.4) 12/13/16 05:18 Assessment and Plan (1) Chronic kidney disease, stage IV (severe) Status: Chronic Assessment and plan: 86-year-old woman admitted with: * Pleural effusion. Status post thoracentesis. * Atelectasis. Incentive spirometry * CRF stage IV. Baseline creatinine 3.1 in December 2016 * Acute on chronic renal failure. Creatinine stable * Anemia. Posttransfusion. Erythropoietin level pending Current Visit: Yes (2) Pleural effusion Status: Acute Current Visit: Yes (3) Anemia Status: Acute Current Visit: Yes Qualifiers: Chronic kidney disease stage: stage 5, not on chronic dialysis (4) Acute on chronic renal failure Status: Acute Current Visit: Yes Specialty Discharge - Follow Up or Referrals Follow up with: Christiano Pinto MD [Physician] - 2 Weeks (Follow-up at [facility] clinic with Dr. Pinto in 2-4 weeks with EKG, BMP, magnesium level, CBC)
[2016-12-14 05:29] LABS: Basophils % 0.2 % (0.0-0.8); Eosinophils # 0.1 10*3/uL (0.0-0.87); Eosinophils % 2.2 % (0.00-10.9); Hematocrit 28.3 VOL% (35.7-47.0); Hemoglobin 8.8 GM/DL (12.0-16.0); Immature Granulocytes % 0.2 %; Immature Granulocytes Absolute 0.01 #; Lymphocytes # 1.6 10*3/uL (1.4-4.0); Lymphocytes % 35.2 % (21.3-54.2); Mean Corpuscular HGB Conc 31.1 GM/DL (32-36); Mean Corpuscular Hemoglobin 29 PG (27-34); Mean Corpuscular Volume 93.1 FL (87-102); Mean Platelet Volume 12.3 FL (9.6-12.0); Monocytes # 0.5 10*3/uL (0.11-0.8); Monocytes % 12.1 % (1.7-12.7); Neutrophils # 2.2 10*3/uL (1.4-7.4); Neutrophils % 50.1 % (38.7-73.9); Platelet Count 101 T/CUMM (130-400); Red Blood Count 3.04 MC/CUMM (3.8-5.5); Red Cell Distribution Width 15.9 % (9.3-17.3); White Blood Count 4.5 T/CUMM (4-12)
[2016-12-14 06:00] LABS: Calcium 8.2 MG/DL (8.5-10.1); Magnesium 1.9 MG/DL (1.8-2.4); Osmolality,Calculated 299.1 MOS/KG (273-304); Potassium 4.8 MMOL/L (3.5-5.1)
[2016-12-14] MEDS: LEVOTHYROXINE 125 MCG TABLET PO SCH (07:05)
[2016-12-14] MEDS: amLODIPine 5 MG TABLET PO SCH (08:28)
[2016-12-14] MEDS: TORSEMIDE 20 MG TABLET PO SCH (08:28)
[2016-12-14] MEDS: CITALOPRAM 20 MG TABLET PO SCH (08:28)
[2016-12-14] MEDS: ALLOPURINOL 300 MG TABLET PO SCH (08:29)
[2016-12-14] MEDS: METOPROLOL TARTRATE 100 MG TABLET PO SCH ×2 (08:29→22:32)
[2016-12-14] MEDS: PANTOPRAZOLE 40 MG TABLET PO SCH ×2 (08:29→22:32)
[2016-12-14] MEDS: ASCORBIC ACID 500 MG TABLET PO SCH ×2 (08:29→22:33)
[2016-12-14] MEDS: GABAPENTIN 300 MG CAPSULE PO SCH (08:34)
--- NOTE | 2016-12-14 09:05 | Hospitalist Progress Note ---
Assessment and Plan (1) Chronic kidney disease, stage IV (severe) Status: Chronic Assessment and plan: Stable GFR during hospitalization. Possible chronic simple anemia secondary to advanced renal failure. Current Visit: Yes (2) Pleural effusion Status: Acute Assessment and plan: Left paracentesis returned with benign fluid thus far, however fluid has reaccumulated. Patient's echocardiogram shows normal global left ventricular systolic performance with only mild to moderate pulmonary hypertension. Her serum albumin level was 2.8 with heavy urine protein on dipstick. Current Visit: Yes Hospitalist: Subjective Interval history: 86-year-old female with chronic renal insufficiency managed medically had presented with increased edema associated with left pleural effusion thoracentesis was benign on 07 December with follow-up chest x-ray showed some reaccumulation. Her renal function is remained stable during the hospital stay with an echocardiogram showing normal ejection fraction and right ventricular systolic pressure of 55 mmHg. She has been noted in hospital to be both anemic and mildly thrombocytopenic although this is most likely chronic simple anemia associated with renal disease at her age and underlying mild myelodysplastic process is not excluded. Her vital signs were stable overnight she feels well is no shortness of breath. Exam - Constitutional Vitals: Period Temp Pulse Resp BP Sys/Garcia Pulse Ox Last 24 Hr 97.3 F-98.4 F 57-74 16-20 115-160/53-71 91-100 General appearance: normal weight - Respiratory Respiratory exam: Present: other (Mildly decreased breath sounds at the bases.) . Absent: rales, rhonchi, wheezes - Cardiovascular Cardiovascular exam: Present: regular rate and rhythm - GI/Abdominal GI/Abdominal exam: Present: normal bowel sounds - Extremities Exam Extremities exam: Absent: edema - Neurological Exam Neurological exam: Present: alert, oriented X3 Results - Labs CBC & BMP: 12/14/16 04:30 12/14/16 04:30 Specialty Discharge - Follow Up or Referrals Follow up with: Christiano Pinto MD [Physician] - 2 Weeks (Follow-up at [facility] clinic with Dr. Pinto in 2-4 weeks with EKG, BMP, magnesium level, CBC)
[2016-12-14] MEDS: LEVOFLOXACIN INJ 500 MG in PREMIX 1 EACH IV SCH (17:13)
--- NOTE | 2016-12-14 21:22 | Nephrology Progress Note ---
Nephrology - PN: Subj Interval history: Breathing is better today. No pleuritic chest pain Exam (PN)-Nephrology - Vital Signs Vital signs: Period Temp Pulse Resp BP Sys/Garcia Pulse Ox Last 24 Hr 97.5 F-98 F 55-61 18-24 120-145/56-71 91-98 Exam: ENT: Normal Cardiovascular: Regular rate and rhythm. No murmur rub or gallop Lungs: Clear Extremities: No edema - Lab 12/14/16 04:30 12/14/16 04:30 Most recent lab results Calcium 8.2 MG/DL (8.5-10.1) L 12/14/16 04:30 Magnesium 1.9 MG/DL (1.8-2.4) 12/14/16 04:30 Assessment and Plan (1) Chronic kidney disease, stage IV (severe) Status: Chronic Assessment and plan: 86-year-old woman admitted with: * Pleural effusion. Status post thoracentesis. * Atelectasis. Incentive spirometry. Repeat CXR in a.m. * CRF stage IV. Baseline creatinine 3.1 in December 2016 * Acute on chronic renal failure. Creatinine remains stable * Anemia. Posttransfusion. Erythropoietin level pending Current Visit: Yes (2) Pleural effusion Status: Acute Current Visit: Yes (3) Anemia Status: Acute Current Visit: Yes Qualifiers: Chronic kidney disease stage: stage 5, not on chronic dialysis (4) Acute on chronic renal failure Status: Acute Current Visit: Yes Specialty Discharge - Follow Up or Referrals Follow up with: Christiano Pinto MD [Physician] - 2 Weeks (Follow-up at [facility] clinic with Dr. Pinto in 2-4 weeks with EKG, BMP, magnesium level, CBC)
[2016-12-14] MEDS: FENOFIBRATE 160 MG TABLET PO SCH (22:32)
[2016-12-14] MEDS: SIMVASTATIN 40 MG TABLET PO SCH (22:33)
[2016-12-14] MEDS: ENOXAPARIN 30 MG/0.3 ML SYRINGE SUBCUT SCH (22:34)
[2016-12-15 05:58] LABS: Basophils % 0.2 % (0.0-0.8); Eosinophils # 0.1 10*3/uL (0.0-0.87); Eosinophils % 2.1 % (0.00-10.9); Hematocrit 27.9 VOL% (35.7-47.0); Hemoglobin 8.7 GM/DL (12.0-16.0); Immature Granulocytes % 0.4 %; Immature Granulocytes Absolute 0.02 #; Lymphocytes # 1.8 10*3/uL (1.4-4.0); Lymphocytes % 34.7 % (21.3-54.2); Mean Corpuscular HGB Conc 31.2 GM/DL (32-36); Mean Corpuscular Hemoglobin 29 PG (27-34); Mean Corpuscular Volume 93.3 FL (87-102); Mean Platelet Volume 12.1 FL (9.6-12.0); Monocytes # 0.7 10*3/uL (0.11-0.8); Monocytes % 12.5 % (1.7-12.7); Neutrophils # 2.6 10*3/uL (1.4-7.4); Neutrophils % 50.1 % (38.7-73.9); Platelet Count 115 T/CUMM (130-400); Red Blood Count 2.99 MC/CUMM (3.8-5.5); Red Cell Distribution Width 16.1 % (9.3-17.3); White Blood Count 5.3 T/CUMM (4-12)
[2016-12-15 06:35] LABS: Calcium 8.3 MG/DL (8.5-10.1); Osmolality,Calculated 301.1 MOS/KG (273-304); Potassium 4.7 MMOL/L (3.5-5.1)
[2016-12-15] MEDS: LEVOTHYROXINE 125 MCG TABLET PO SCH (08:19)
[2016-12-15] MEDS: TORSEMIDE 20 MG TABLET PO SCH (09:20)
[2016-12-15] MEDS: CITALOPRAM 20 MG TABLET PO SCH (09:20)
[2016-12-15] MEDS: ASCORBIC ACID 500 MG TABLET PO SCH (09:21)
[2016-12-15] MEDS: ALLOPURINOL 300 MG TABLET PO SCH (09:22)
[2016-12-15] MEDS: GABAPENTIN 300 MG CAPSULE PO SCH (09:23)
[2016-12-15] MEDS: amLODIPine 5 MG TABLET PO SCH (09:24)
[2016-12-15] MEDS: METOPROLOL TARTRATE 100 MG TABLET PO SCH (09:24)
[2016-12-15] MEDS: PANTOPRAZOLE 40 MG TABLET PO SCH (09:25)
--- NOTE | 2016-12-15 11:11 | XRay Report ---
History: Pleural effusion Date: 12/15/2016 Study: Chest x-ray PA and lateral Comparison exam: Chest x-ray December 12, 2016 There is continued cardiomegaly. The mediastinal contour is unchanged. The pulmonary vasculature is not engorged. There is continued left greater than right pleural effusion without change. There is some continued atelectasis/infiltrate in the left lung base without change. There is no new or worsening process. Osseous structures are similar. Impression: No significant overall change from the previous study PROCEDURE INTERPRETED AT [facility] DEPARTMENT OF RADIOLOGY Final Report Signed by: Dr. Angie Roque
[2016-12-15 13:26] VITALS: BP 108/48
--- NOTE | 2016-12-15 16:08 | Nephrology Progress Note ---
Nephrology - PN: Subj Interval history: She is comfortable on room air. No new symptoms. Exam (PN)-Nephrology - Vital Signs Vital signs: Period Temp Pulse Resp BP Sys/Garcia Pulse Ox Last 24 Hr 97.2 F-98.6 F 57-61 18-20 108-150/48-72 90-97 Exam: ENT: Normal Cardiovascular: Regular rate and rhythm. No murmur rub or gallop Lungs: Clear Extremities: No edema - Lab 12/15/16 05:26 12/15/16 05:26 Most recent lab results Calcium 8.3 MG/DL (8.5-10.1) L 12/15/16 05:26 Magnesium 2.0 MG/DL (1.8-2.4) 12/15/16 05:26 Assessment and Plan (1) Chronic kidney disease, stage IV (severe) Status: Chronic Assessment and plan: 86-year-old woman admitted with: * Pleural effusion. Status post thoracentesis. * Atelectasis. Incentive spirometry. * CRF stage IV. Baseline creatinine 3.1 in December 2015 * Acute on chronic renal failure. Creatinine remains stable. She is clinically stable from my standpoint for discharge when others ready * Anemia. Posttransfusion. Erythropoietin level is low normal. Aranesp will be started Current Visit: Yes (2) Pleural effusion Status: Acute Current Visit: Yes (3) Anemia Status: Acute Current Visit: Yes Qualifiers: Chronic kidney disease stage: stage 5, not on chronic dialysis (4) Acute on chronic renal failure Status: Acute Current Visit: Yes Specialty Discharge - Follow Up or Referrals Follow up with: Christiano Pinto MD [Physician] - 2 Weeks (Follow-up at [facility] clinic with Dr. Pinto in 2-4 weeks with EKG, BMP, magnesium level, CBC)
--- NOTE | 2016-12-15 16:49 | Discharge Summary ---
Hospital Course - Hospital Course Hospital Course: 86-year-old female with chronic renal insufficiency managed medically presented with increased edema associated with left pleural effusion. She was admitted to the hospitalist service for further evaluation. Pulmonary and nephrology were consulted. Patient underwent a thoracentesis 12/07/16. Her renal function has remained stable during the hospital stay. Echocardiogram wiht normal ejection fraction and right ventricular systolic pressure of 55 mmHg. She was noted in hospital to be both anemic and mildly thrombocytopenic although this is most likely chronic simple anemia associated with renal disease at her age and underlying mild myelodysplastic process is not excluded. Her shortness of breath is resolved. She has now reached maximal benefit of inpatient stay and will be discharged to home. - Time spent with patient Time with patient DS: Less than 30 minutes (25) Diagnosis - Discharge Diagnosis (1) Chronic kidney disease, stage IV (severe) Status: Chronic (2) Pleural effusion Status: Resolved (3) Anemia Status: Chronic (4) Hypertension Status: Chronic Specialty Discharge - Follow Up or Referrals Follow up with: Christiano Pinto MD [Physician] - 2 Weeks (Follow-up at [facility] with Dr. Pinto in 2-4 weeks with EKG, BMP, magnesium level, CBC) Discharge Plan - Discharge Data Disposition: Disch To Home/Self Care Condition at Discharge: Stable Discharge Diet: advance to your usual diet Activity: increase activity as tolerated Hygiene: no restrictions Weight Bearing at Discharge: weight bear as tolerated Driving: no restrictions Contact your physician if you experience:: Shortness of breath - Discharge Medications Continue Omeprazole 20 mg PO BID Levothyroxine Tab [Synthroid Tab] 125 mcg PO DAILY@0700 Amlodipine Besylate 7.5 mg PO DAILY cloNIDine TAB [Catapres Tab] 0.3 mg PO DAILY Ondansetron Tab [Zofran Tab] 4 mg PO Q8HR PRN PRN Reason: Nausea/Vomiting Torsemide 5 mg PO DAILY Simvastatin 40 mg PO BEDTIME Fenofibrate 160 mg PO DAILY W/BREAKFAST Allopurinol 150 mg PO DAILY Metoprolol Tartrate 100 mg PO BID Gabapentin 300 mg PO DAILY Citalopram [CeleXA] 20 mg PO DAILY - Follow Up or Referral Follow Up: Christiano Pinto MD [Physician] - 2 Weeks (Follow-up at [facility] clinic with Dr. Pinto in 2-4 weeks with EKG, BMP, magnesium level, CBC) - Forms/Instructions Exam - Constitutional Vitals: Period Temp Pulse Resp BP Sys/Garcia Pulse Ox Last 24 Hr 97.2 F-98.6 F 57-61 18-20 108-150/48-72 90-97 General appearance: over weight - Head Head exam: Present: normal inspection - Eye Eye exam: Present: EOMI Pupils: Present: ABE - ENT ENT exam: Present: normal exam - Neck Neck exam: Present: normal inspection - Respiratory Respiratory exam: Present: clear to auscultation bilaterally. Absent: wheezes - Cardiovascular Cardiovascular exam: Present: regular rate and rhythm - GI/Abdominal GI/Abdominal exam: Present: normal bowel sounds, soft. Absent: tenderness, rebound - Extremities Exam Extremities exam: Present: normal inspection - Back Exam Back exam: Present: normal inspection - Neurological Exam Neurological exam: Present: alert, oriented X3 - Psychiatric Psychiatric exam: Present: normal affect, normal mood - Skin Skin exam: Present: normal color, intact Discharge Results Labs on day of discharge: Labs from last 24 hours 12/15/16 12/15/16 12/14/16 05:26 05:26 04:30 WBC 5.3 RBC 2.99 L Hgb 8.7 L Hct 27.9 L MCV 93.3 MCH 29 MCHC 31.2 L RDW 16.1 Plt Count 115 L MPV 12.1 H Neut % (Auto) 50.1 Lymph % (Auto) 34.7 [place] % (Auto) 12.5 Eos % (Auto) 2.1 Baso % (Auto) 0.2 Neut # (Auto) 2.6 Lymph # (Auto) 1.8 [place] # (Auto) 0.7 Eos # (Auto) 0.1 Baso # (Auto) 0.0 Immature Gran % 0.4 Nucleated RBC % 0.0 Immature Gran # 0.02 Nucleated RBCs # 0.00 Sodium 142 Potassium 4.7 Chloride 108 H Carbon Dioxide 25 Anion Gap 13.7 BUN 67 H Creatinine 4.70 H GFR Calculation 8 BUN/Creatinine Ratio 14.00 Glucose 90 Calculated Osmolality 301.1 Calcium 8.3 L Magnesium 2.0 Erythropoietin 6.4 1,25 Dihydroxy Vit D 12/10/16 14:01 WBC RBC Hgb Hct MCV MCH MCHC RDW Plt Count MPV Neut % (Auto) Lymph % (Auto) [place] % (Auto) Eos % (Auto) Baso % (Auto) Neut # (Auto) Lymph # (Auto) [place] # (Auto) Eos # (Auto) Baso # (Auto) Immature Gran % Nucleated RBC % Immature Gran # Nucleated RBCs # Sodium Potassium Chloride Carbon Dioxide Anion Gap BUN Creatinine GFR Calculation BUN/Creatinine Ratio Glucose Calculated Osmolality Calcium Magnesium Erythropoietin 1,25 Dihydroxy Vit D 17 L DS: Provider Date of admission: 12/06/16 15:57 Primary care physician: . No PCP Attending physician on admission: Carmelo Miller MD Consults: 12/06/16 17:54 Consult to Physician [CONS] Routine Comment: Patient of yours; courtesy consult Consulting Provider: Jose Soria When should Consulting Provider be notified: In am Person Notified: spoke with dr thompson who is applications architect Date Notified: 12/06/16 Time Notified: 17:35 Consult Notification Comment: i spoke with Dr Soria and told him about the consult and will also call [facility] in the A.M. 12/08/16 13:42 Consult to Physical Therapy [CONS] Routine Reason for Physical Therapy: Weakness 12/10/16 10:10 Consult to Physician [CONS] Routine Comment: Pulmonary hypertension Consulting Provider: Sammy Vieria Consult to Specialist Group: Pulmonology Person Notified: Dr. Vieira Date Notified: 12/10/16 Time Notified: 10:17 12/10/16 10:35 Consult to Physician [CONS] Routine Comment: Pulmonary hypertension. Mitral regurgitation. Dy Consulting Provider: Rachel Richey Person Notified: Dr. Richey Date Notified: 12/10/16 Time Notified: 10:56 12/12/16 09:40 Consult to Case Mgmt/Social Srvs [CONS] Routine Reason for Case Mgmt/Social Srvs: Discharge Planning Consult Comment: home health with pt and ot Discharging clinician: Brittani Shelby MD
[2016-12-15] MEDS ORDERED: DARBEPOETIN ALFA 100 MCG/ML VIAL SUBCUT ONE (17:00)
--- NOTE | 2016-12-20 13:34 | Physician Query Form ---
CLICK EDIT DOCUMENT TO SELECT QUERY ANSWER --> OK --> SIGN Caroline Olson RN Clinical Marine Consultant W) [phone] (f) [phone] [email or web address]: Make your selection(s) from the choices in EACH section by typing an "x" and enter comments in the comment section. Please use your independent medical judgment in providing your response. This request does not imply that any particular answer is desired or expected. CLINICAL INDICATORS: (Providers should not edit this section) There is conflicting documentation in the record of "ckd stage 4" and "ckd stage 5". Please clarify the stage of the CKD. Creatinine of 5.00 and GFR of 7 on admission. Clarify which of the following most accurately represents the patient's renal status: Chronic Kidney Disease Stages Source: National Kid[employer] Disease Foundation ( ) Stage I (eGFR > or = 90) ( ) Stage II (eGFR 60 - 89) ( ) Stage III (eGFR 30 - 59) ( ) Stage IV (eGFR 15 - 29) ( x) Stage V (eGFR < 15 or dialysis) COMMENTS: PLEASE ALSO DOCUMENT RESPONSE IN PROGRESS NOTES AND/OR DISCHARGE SUMMARY Use of terms such as suspected, likely, or probable (associated with a specific diagnosis that is being evaluated, monitored, or treated as if it exists) are acceptable and can be restated in the discharge summary if not ruled out. MTDD
== END 2016-12-15 20:00 | disposition home health service (06) | DRG 194 ==
LOC: EDUNIT# → EDBD → N.ED 14:07 → SUATTDRO 15:57 → N.EDINP 15:57 → N.2E 17:53
PROVIDERS: ADMIT Internal Medicine Geriatric Medicine; ATTEND Internal Medicine
PROC: IRTHORA (2016-12-07 12:30)

== ENCOUNTER 2016-12-20 16:24 | Inpatient (IN) ==
[2016-12-20] MEDS ORDERED: guaiFENesin/DM ER 600-30 MG TABLET PO PRN (18:24)
[2016-12-20] MEDS ORDERED: DOCUSATE SODIUM 100 MG CAPSULE PO PRN (18:24)
[2016-12-20] MEDS ORDERED: ACETAMINOPHEN 325 MG TABLET PO PRN ×2 (18:24)
[2016-12-20] MEDS ORDERED: diphenhydrAMINE CAP 25 MG CAPSULE PO PRN (18:24)
--- NOTE | 2016-12-20 18:44 | Hospitalist History & Physical ---
Assessment and Plan - Time spent with patient Time spent with patient: Greater than 30 minutes (1) Volume overload Status: Acute Assessment and plan: Ms. Haas is an 86-year-old white female with history of hypertension, hyperlipidemia, and previous admission for shortness of breath due to poor fluid and pneumonia. She was admitted directly from Dr. Turner's office by hospital medicine with shortness of breath and confusion with falls. Patient does have increasing generalized edema. We will go ahead and consult Dr. Vieira and Dr. Soria who both saw her on her last admission. We will also consult PT and OT for evaluation in the morning. Her chest x-rays pending and labs are ordered for in the morning. Had a discussion with patient and family members in she wishes to be a full code at this time. We will also get an ultrasound of the abdomen. Dr. Zavala has seen and examined patient and further recommendations to follow. Current Visit: Yes (2) Generalized weakness Status: Acute Current Visit: No (3) Chronic kidney disease, stage IV (severe) Status: Chronic Current Visit: No (4) Pleural effusion Status: Resolved Current Visit: No (5) Anemia Status: Chronic Current Visit: No Qualifiers: Chronic kidney disease stage: stage 5, not on chronic dialysis (6) Hypertension Status: Chronic Current Visit: No Qualifiers: Hypertension type: essential hypertension Qualified Code(s): I10 - Essential (primary) hypertension (7) KAY (dyspnea on exertion) Status: Chronic Current Visit: No History of Present Illness Chief complaint: Shortness of breath History of present illness: Ms. Haas is a 86 year old white female with history of hypertension, hyperlipidemia, chronic renal insufficiency directly admitted from Dr. Turner's office with worsening pleural effusion, frequent falls, and weakness. Patient has been living with her granddaughter and the granddaughter states she was just discharged from the hospital on 12/15/2016 with increasing edema associated with a left pleural effusion. Dr. Vieira from pulmonary and Dr. Soria from nephrology saw her on that hospital stay. She underwent a thoracentesis by Dr. Vieira on 12/07/2016. Her renal function remained stable and her echo was normal. She was discharged when her shortness of breath resolved. Patient and granddaughter state that she felt okay for a day or 2 but then she has had progressive shortness of breath and increasing edema in her legs abdomen and arms. She had a fall last night and has been disoriented but she did not hurt herself. Patient is awake and alert. She does have fluid buildup in bilateral upper extremities lower extremities and her abdomen. She has few crackles in the bases of bilateral lungs. Her lab work from Dr. Turner's office is relatively unremarkable. Chest x-ray is pending. Patient denies headache, blurry vision, chest pain, abdominal pain, constipation, or difficulty urinating. Dr. Zavala has seen and examined patient. Home Medications Medication Instructions Recorded Confirmed Type Allopurinol 150 mg PO DAILY 12/06/16 12/20/16 History Amlodipine Besylate 7.5 mg PO DAILY 12/06/16 12/20/16 History Citalopram [CeleXA] 20 mg PO DAILY 12/06/16 12/20/16 History Fenofibrate 160 mg PO DAILY W/BREAKFAST 12/06/16 12/20/16 History Gabapentin 300 mg PO DAILY 12/06/16 12/20/16 History Levothyroxine Tab [Synthroid Tab] 125 mcg PO DAILY@0700 12/06/16 12/20/16 History Metoprolol Tartrate 100 mg PO BID 12/06/16 12/20/16 History Omeprazole 20 mg PO BID 12/06/16 12/20/16 History Ondansetron Tab [Zofran Tab] 4 mg PO Q8HR PRN 12/06/16 12/20/16 History Simvastatin 40 mg PO BEDTIME 12/06/16 12/20/16 History Torsemide 5 mg PO DAILY 12/06/16 12/20/16 History cloNIDine TAB [Catapres Tab] 0.3 mg PO DAILY 12/06/16 12/20/16 History Ascorbic Acid [Vitamin C] 500 mg PO DAILY 12/20/16 12/20/16 History Cetirizine Tab [ZyrTEC Tab] 10 mg PO DAILY 12/20/16 12/20/16 History Allergies Allergy/AdvReac Type Severity Reaction Status Date / Time Amoxicillin [From Augmentin] Allergy Unknown/Unable Verified 12/20/16 17:39 to obtain aspirin Allergy Unknown/Unable Verified 12/20/16 17:39 to obtain clavulanic acid Allergy Unknown/Unable Verified 12/20/16 17:39 [From Augmentin] to obtain Sulfa (Sulfonamide Allergy Unknown/Unable Verified 12/06/16 14:14 Antibiotics) to obtain Medical,Surgical,& Family Hx - Medical History Cardio: History of: Hypertension Respiratory: History of: Pneumonia Renal: History of: Renal Failure - Surgical History Abdominal Surgeries: Surgical HX of: Cholecystectomy Orthopedic Surgeries: Surgical HX of;: Spinal Surgery - Family History Family History: Reports;: Family Heart Disease - Social History Smoking Status: Never smoker Frequency of Alcohol Use: None Type of Drug Use: None Marital Status: Single Lives With:: Children Functional capacity: uses cane/walker Review of systems: A complete 10 system review of systems was obtained and pertinent positives and negatives per HPI Exam - Constitutional Vitals: Period Temp Pulse Resp BP Sys/Garcia Pulse Ox Last 24 Hr 97.7 F 62 18 162/72 90 Exam: Constitutional System: No distress. No tremulousness. Head: Normocephalic, atraumatic. Ears, Nose and Throat System: No evidence of Otitis or Mastoiditis. No epistaxis or discharge Eyes System: Pupils equal, round, and reactive. Extraocular muscles intact. Neck: Supple, without adenopathy, No jugular venous distention. No thyromegaly, neck mass, or prior surgery apparent. Respiratory System: Chest few crackles at the bases bilaterally to auscultation. Cardiovascular System: Heart with regular rate and rhythm. No murmur. GI System: Abdomen soft with some noted fluid buildup, nontender. Normo active bowel sounds present. Musculoskeletal System: limbs with trace pedal edema. Diminished distal pulses. Neurological System: No discernable sensory deficit. No aphasia Psychiatric System: Conversation is rational Results - Labs Lab Results: I have reviewed the past 24 hour labs Labs: Labs are being scanned in the computer. Her white count was normal patient was anemic but not grossly. Her creatinine was 4.4 which is stable from her previous admission. Platelets are normal - Impressions EKG is pending - Diagnostic Findings Procedure: Chest x-ray: pending
--- NOTE | 2016-12-20 18:50 | XRay Report ---
Exam: XR chest 2V Date: 12/20/2016 5:53 PM Indication: Pleural effusion Comparison: 12/15/2016 Technical: PA lateral Findings: Cardiomegaly present with a left base pleural effusion atelectatic change present. This involves the lower one fourth of the left chest. Mild dextroscoliotic curve present. Previous cholecystectomy. No obvious pneumothorax. Mediastinum is intact. ASVD is present. Impression: 1. Cardiomegaly with low volume left effusion slightly increased when compared to previous study of 12/15/2016 2. Component of underlying mild fibrotic scarring 3. Previous cholecystectomy PROCEDURE INTERPRETED AT [facility] DEPARTMENT OF RADIOLOGY Final Report Signed by: Dr. Sammy Maharaj
[2016-12-20] MEDS: METOPROLOL TARTRATE 100 MG TABLET PO SCH (20:59)
[2016-12-20] MEDS: ENOXAPARIN 30 MG/0.3 ML SYRINGE SUBCUT SCH (20:59)
[2016-12-20] MEDS: SIMVASTATIN 40 MG TABLET PO SCH (20:59)
[2016-12-21] MEDS: LEVOTHYROXINE 125 MCG TABLET PO SCH ×2 (06:42→08:40)
[2016-12-21 07:14] LABS: Basophils % 0.3 % (0.0-0.8); Eosinophils # 0.1 10*3/uL (0.0-0.87); Hematocrit 33.2 VOL% (35.7-47.0); Hemoglobin 10.2 GM/DL (12.0-16.0); Immature Granulocytes % 1.7 %; Immature Granulocytes Absolute 0.12 #; Lymphocytes # 2.6 10*3/uL (1.4-4.0); Lymphocytes % 36.6 % (21.3-54.2); Mean Corpuscular HGB Conc 30.7 GM/DL (32-36); Mean Corpuscular Hemoglobin 29 PG (27-34); Mean Corpuscular Volume 95.7 FL (87-102); Mean Platelet Volume 11.6 FL (9.6-12.0); Monocytes # 0.9 10*3/uL (0.11-0.8); Monocytes % 12.5 % (1.7-12.7); NRBC # 0.02 10*3/uL; Neutrophils # 3.3 10*3/uL (1.4-7.4); Neutrophils % 46.9 % (38.7-73.9); Platelet Count 157 T/CUMM (130-400); Red Blood Count 3.47 MC/CUMM (3.8-5.5); Red Cell Distribution Width 16.3 % (9.3-17.3); White Blood Count 7.1 T/CUMM (4-12)
[2016-12-21 07:31] LABS: Albumin 2.8 G/DL (3.4-5.0); Bilirubin,Total 1.2 MG/DL (0.2-1.0); Calcium 8.3 MG/DL (8.5-10.1); Osmolality,Calculated 297.3 MOS/KG (273-304); Potassium 4.4 MMOL/L (3.5-5.1); Total Protein 4.9 G/DL (6.4-8.3)
--- NOTE | 2016-12-21 07:46 | EKG Report ---
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
--- NOTE | 2016-12-21 08:38 | Ultrasound Report ---
Exam: US abdomen Date: 12/21/2016 12:00 AM Comparison: None Indication: Abdominal edema Technique:[Multiple transabdominal real-time scans were obtained of the abdomen. Ultrasound images were captured and stored. Color-flow scans obtained.] Findings: The gallbladder is surgically absent. CBD measures 6.7 mm. The liver is normal in size with 34 mm right hepatic cyst. The spleen and visualized pancreas and aorta have an unremarkable appearance. Right kidney measures 123 mm in length. Left kidney measures 107 mm in length. No hydronephrosis with multiple bilateral renal cysts. 81 mm complex left upper pole renal cyst. Multiple additional smaller simple cysts. Portions of the pancreas and aortic bifurcation are obscured by bowel gas. Color flow documented in the IVC. Bilateral pleural effusions. Impression: Status post cholecystectomy with CBD borderline in size measuring 6.7 mm. Hepatic and renal cysts. 81 mm complex cyst in the upper pole of the left kidney with solid components with multiple septations. CT with contrast recommended for further evaluation since cystic tumor cannot be excluded. Bilateral pleural effusions. The Ultrasound images were captured and stored. PROCEDURE INTERPRETED AT [facility] DEPARTMENT OF RADIOLOGY Final Report Signed by: Dr. Winsome Jones
[2016-12-21] MEDS: PANTOPRAZOLE 40 MG TABLET PO SCH (08:40)
[2016-12-21] MEDS: FENOFIBRATE 160 MG TABLET PO SCH (08:40)
[2016-12-21] MEDS: ASCORBIC ACID 500 MG TABLET PO SCH (08:40)
[2016-12-21] MEDS: METOPROLOL TARTRATE 100 MG TABLET PO SCH ×2 (08:40→20:49)
[2016-12-21] MEDS: GABAPENTIN 300 MG CAPSULE PO SCH (08:40)
[2016-12-21] MEDS: CITALOPRAM 20 MG TABLET PO SCH (08:40)
[2016-12-21] MEDS: ALLOPURINOL 300 MG TABLET PO SCH (08:40)
[2016-12-21] MEDS: CETIRIZINE 10 MG TABLET PO SCH (08:41)
[2016-12-21] MEDS: amLODIPine 2.5 MG TABLET PO SCH (08:41)
[2016-12-21] MEDS ORDERED: FUROSEMIDE 40 MG/4 ML VIAL IV ONE (09:17)
[2016-12-21 09:26] LABS: Potassium 4.2 MMOL/L (3.5-5.1)
[2016-12-21] MEDS ORDERED: LEVOFLOXACIN INJ 750 MG in PREMIX 1 EACH IV ONE (09:30)
[2016-12-21 09:44] LABS: Free T4 (Free Thyroxine) 1.38 NG/DL (0.76-1.46); Thyroid Stimulating Hormone 4.37 uIU/ml (0.358-3.74)
[2016-12-21 10:23] LABS: INR 1.2; PT Patient Result 13.2 SECS
--- NOTE | 2016-12-21 11:05 | Pulmonology Consult Note ---
History of Present Illness Chief complaint: Pleural effusion History of present illness: Jorge Kumar, ANP-BC, GNP-BC, acting as scribe for Dr. Sammy Vieira Mrs. Haas is an 86-year-old white female who we have been asked to see in pulmonary consultation for evaluation and treatment. The request for consultation was made by Dr. Zavala. This patient was recently inpatient here at [facility] 12/06/2016 through 2016 under the care of the hospitalist. She was seen at admission in consultation by Dr. Blum, Dr. Soria, and Dr. Cheema. During that admission she had a left pleural effusion. Thoracentesis was done and the pleural fluid was found to be a transudate. She was also noted to have pulmonary hypertension with pulmonary artery pressure of 50 mmHg and mild mitral regurgitation. She was discharged home in improved condition. Please see the discharge summary for more information. She presented back to Dr. Turner's office on 12/20/2016 with complaints of shortness of breath and confusion with falls. Dr. Turner contacted the hospitalist for hospitalization. On evaluation , the patient was found to have a worsening left-sided pleural effusion and was admitted for further evaluation and care. The patient was seen today along with her son, multiple nurses, and Dr. Grewal. The patient reports increasing generalized edema and shortness of breath that has worsened since her discharge. She denies any cardiac angina. There is no reported dysphasia or reflux. No bleeding from any site. No change in bowel or bladder habits. All other systems were reviewed and were negative. Allergies: Augmentin, aspirin, and sulfa Home medications: See list Past medical history: Positive for [facility] hospitalization 12/07/1999 1730 12/15. See above. History of high blood pressure, elevated triglycerides, hypothyroidism, hyperlipidemia, chronic renal insufficiency followed by Dr. Soria, gout, past history of pneumonia. On echocardiogram done during her last hospitalization EF was estimated at 50-55%, mild concentric left ventricular hypertrophy, moderately thickened mitral valve with mild mitral annular calcification and mild mitral valve regurgitation, mild aortic valve sclerosis without stenosis, mild tricuspid valve regurgitation, and pulmonary artery pressure 50 mmHg. Surgical history: Positive for hysterectomy, cholecystectomy, and spinal surgery Social history: The patient's son works here at [employer]. She has recently been living with her granddaughter. Prior to that, she lived by herself. She is a lifetime non-smoker. She denies the use of alcohol. Chest x-ray. Done 12/20/2016. My interpretation. Cardiomegaly with a mild to moderate left pleural effusion. No acute infiltrate. Laboratory: White count is 7100 with 46.9% segs, 36.6% lymphs, and 12.5% monos; H&H 10.2/33.5 with low to low normal indices and top normal red blood cell distribution with; platelet count 157,000; INR 1.2; creatinine 4.60, BUN 64, sodium 141, potassium 4.2, magnesium 2.0; liver function tests within normal limits; total bilirubin 1.20; BNP 1162; calcium is low at 8.3 reflected in a low albumin of 2.8, total protein 4.9; TSH is elevated at 4.370 but free T4 is normal at 1.38; cardiac enzymes are negative. Microbiology: Pleural fluid obtained 12/07/2016 during her previous hospitalization showed no organisms and few white blood cells on Gram stain. Culture grew no organisms. Home Medications Medication Instructions Recorded Confirmed Type Allopurinol 150 mg PO DAILY 12/06/16 12/20/16 History Amlodipine Besylate 7.5 mg PO DAILY 12/06/16 12/20/16 History Citalopram [CeleXA] 20 mg PO DAILY 12/06/16 12/20/16 History Fenofibrate 160 mg PO DAILY W/BREAKFAST 12/06/16 12/20/16 History Gabapentin 300 mg PO DAILY 12/06/16 12/20/16 History Levothyroxine Tab [Synthroid Tab] 125 mcg PO DAILY@0700 12/06/16 12/20/16 History Metoprolol Tartrate 100 mg PO BID 12/06/16 12/20/16 History Omeprazole 20 mg PO BID 12/06/16 12/20/16 History Ondansetron Tab [Zofran Tab] 4 mg PO Q8HR PRN 12/06/16 12/20/16 History Simvastatin 40 mg PO BEDTIME 12/06/16 12/20/16 History Torsemide 5 mg PO DAILY 12/06/16 12/20/16 History cloNIDine TAB [Catapres Tab] 0.3 mg PO DAILY 12/06/16 12/20/16 History Ascorbic Acid [Vitamin C] 500 mg PO DAILY 12/20/16 12/20/16 History Cetirizine Tab [ZyrTEC Tab] 10 mg PO DAILY 12/20/16 12/20/16 History Allergies Allergy/AdvReac Type Severity Reaction Status Date / Time Amoxicillin [From Augmentin] Allergy Unknown/Unable Verified 12/20/16 17:39 to obtain aspirin Allergy Unknown/Unable Verified 12/20/16 17:39 to obtain clavulanic acid Allergy Unknown/Unable Verified 12/20/16 17:39 [From Augmentin] to obtain Sulfa (Sulfonamide Allergy Unknown/Unable Verified 12/06/16 14:14 Antibiotics) to obtain Exam (Pulmonay) H&P - Constitutional Vitals: Period Temp Pulse Resp BP Sys/Garcia Pulse Ox Last 24 Hr 97.6 F-98.5 F 62-66 18-20 143-162/67-78 90-97 Exam: Psych: [Oriented x 3; a pleasant and cooperative patient ] HEENT: [Pupils, irises, sclera, conjunctiva, and eyelids are normal. The face is symmetrical without rash or masses. Lips, tongue, buccal mucosa, soft and hard palates, and pharynx are WNL] Neck: [Symmetrical. Thyroid was not palpated.] Lymphatics: [No submandibular, cervical, or supraclavicular adenopathy] Chest: [Symmetrical fairly clear breath sounds; slightly decreased in the left left base] Breasts: [Deferred] CV: Heart sounds are distant. Cannot hear murmur, rub or gallop Arterial: [Carotids with a fair upstroke. There is no appreciable bruit. Upper extremity pulses are palpable. Lower extremity pulses are non-palpable, but I see no evidence of ischemia.] Venous: [Exam of the neck, upper, and lower extremities is normal] Abd: [No appreciable organomegaly, masses, tenderness, or bruit; Bowel sounds are positive 4; The aorta was not palpated] /Rectal: [Deferred] Extremities: [No clubbing, cyanosis, or obvious DVT; there is mild edema of the hips bilaterally which extends down to the ankles] Skin: [No cancerous or infectious lesions of the exposed, examined skin; the perineal area was not examined] M/S: [Age appropriate loss of the normal curvature of the cervical, thoracic, and lumbar spine] Neurological: [Cranial nerves are intact with some decreased hearing acuity, Long tract motor function is intact; Sensory exam was not done; gait was not tested.] The remainder of the exam was noncontributory. Impression: #1: Acute left-sided pleural effusion most likely secondary to acute congestive heart failure, but consider other causes #2: Recent hospitalization as above. Thoracentesis was performed and pleural fluid was found to be a transudate. #3: Chronic renal failure followed by Dr. Jose Soria #4: Mild mitral valve regurgitation with a pulmonary artery pressure of 50 mmHg consistent with mild pulmonary hypertension. Note, the patient had medicine of Norvasc 7.5 mg daily needs to be continued. #5: History of anemia #6: Corrected hypothyroidism #7: Hypertension #8: Hyperlipidemia #9: History of gout #10: See past history Plan: #1: The patient has another thoracenesis this admission, we would recommend the fluid be sent for cytology, CBC with differential, glucose, total protein, SGOT, LDH, Gram stain, bacterial culture, TB stain and culture, and fungal stains and cultures #2: Agree with nephrology consultation #3: See orders The case has been discussed with Dr. Grewal today. We have coordinated our care. We appreciate this consult and will follow along with you. Medical,Surgical,& Family Hx - Medical History Cardio: History of: Hypertension Respiratory: History of: Pneumonia Renal: History of: Renal Failure - Surgical History Abdominal Surgeries: Surgical HX of: Cholecystectomy Orthopedic Surgeries: Surgical HX of;: Spinal Surgery - Family History Family History: Reports;: Family Heart Disease - Social History Smoking Status: Never smoker Frequency of Alcohol Use: None Type of Drug Use: None Results - Labs CBC & BMP: 12/21/16 06:11 12/21/16 08:51
--- NOTE | 2016-12-21 11:34 | Hospitalist Progress Note ---
Assessment and Plan (1) Volume overload Status: Acute Assessment and plan: with moderate size left sided pleural effusion. Plan IR for a thoracocentesis and pleural fluid studies IV Lasix Current Visit: Yes (2) Chronic kidney disease, stage IV (severe) Status: Chronic Assessment and plan: Nephrology has been consulted, follow recommendations. Current Visit: No (3) Anemia Status: Chronic Assessment and plan: most likely due to CRF. -Fe studies Current Visit: No Qualifiers: Chronic kidney disease stage: stage 5, not on chronic dialysis (4) Hypertension Status: Chronic Assessment and plan: stable Current Visit: No Qualifiers: Hypertension type: essential hypertension Qualified Code(s): I10 - Essential (primary) hypertension (5) Pulmonary hypertension Status: Chronic Assessment and plan: with mild aortic valve sclerosis without stenosis, and mild tricuspid valve regurgitation. Plan continue with Norvasc and other regime cardiology to see. Current Visit: No (6) Hypothyroidism Status: Acute Assessment and plan: continue with supplements Current Visit: Yes (7) Dyslipidemia Status: Acute Assessment and plan: continue with statins Current Visit: Yes (8) Pleural effusion Status: Resolved Assessment and plan: moderate sized left pleural effusion. -will follow thoracocentesis, continue with IV Lasix, follow pleural studies. -no clinical evidence of infection, will hold antibiotics and get blood cultures Current Visit: No (9) Atrial fibrillation Status: Acute Assessment and plan: with controlled rate- [place] -Cardiac enzymes are negative, - will await Cardiology's input. Current Visit: Yes Hospitalist: Subjective Interval history: Patient went into A.fib with controlled rate this am. Exam - Constitutional Vitals: Period Temp Pulse Resp BP Sys/Garcia Pulse Ox Last 24 Hr 97.6 F-98.5 F 62-66 18-20 143-162/67-78 90-97 General appearance: mild distress - Head Head exam: Present: normal inspection - Respiratory Respiratory exam: Present: decreased breath sounds - Cardiovascular Cardiovascular exam: Present: regular rate and rhythm - GI/Abdominal GI/Abdominal exam: Present: normal bowel sounds - Extremities Exam Extremities exam: Present: normal inspection - Neurological Exam Neurological exam: Present: alert Results - Labs CBC & BMP: 12/21/16 06:11 12/21/16 08:51 Lab Results: I have reviewed the past 24 hour labs
[2016-12-21 12:18] LABS: % Iron Saturation 18.3 % (18-50); Ferritin 237.4 ng/ml (8-252)
--- NOTE | 2016-12-21 14:26 | Ultrasound Report ---
US thoracentesis Indication: Left pleural effusion. ULTRASOUND-GUIDED THORACENTESIS Description: A formal timeout was performed. Maximum sterile barrier technique was used. A left pleural effusion was identified with ultrasound. The left back was prepped and draped in sterile fashion. Under sonographic guidance, a 6 Cypriot pigtail catheter was advanced into the effusion using trocar technique. A captured sonographic image documents needle position. The needle was removed. Through the catheter, we obtained a total of 700 cc of straw-colored, clear fluid. The catheter was removed. A bandage was placed at the puncture site. The patient tolerated the procedure well. Chest radiograph is pending. Impression: Ultrasound-guided thoracentesis. PROCEDURE INTERPRETED AT [facility] DEPARTMENT OF RADIOLOGY Final Report Signed by: Adama Conley M.D.
--- NOTE | 2016-12-21 14:27 | XRay Report ---
XR chest post procedure Indication: Postthoracentesis. Post procedure chest radiograph, 2 views: Inspiratory and expiratory views of the chest were obtained. Comparison yesterday shows evacuation of the majority of the left pleural fluid. No pneumothorax shown. Cardiomegaly, coarsened interstitial markings of the lungs and bibasilar atelectasis are stable. Impression: Evacuation of left pleural effusion with no pneumothorax. PROCEDURE INTERPRETED AT [facility] DEPARTMENT OF RADIOLOGY Final Report Signed by: Adama Conley M.D.
--- NOTE | 2016-12-21 14:28 | Cardiology Consult Note ---
Douglas Antoine Vanessa, RN, am scribing for, and in the presence of, Adama Serna MD 14:21. Assessment and Plan - Time spent with patient Time spent with patient: Greater than 30 minutes (Due to assessment, planning, documentation, and medication review) (1) Atrial fibrillation Status: Resolved Assessment and plan: Review of EKG and telemetry monitoring shows patient is in normal sinus rhythm with very rare PAC. No atrial fibrillation appreciated. Current Visit: Yes (2) Pleural effusion Status: Acute Assessment and plan: Recurring acute left-sided pleural effusion. Also, elevated BNP greater than 1000 noted. It is unlikely there is pleural effusion is just from heart failure. Her LV function has been normal. She has had some left ventricular hypertrophy but her chest x-ray does not reveal pulmonary vascular congestion. Certainly her blood pressures not adequately controlled and this should be managed with medication. Low-dose diuretics may be of benefit but of course her renal function may limit this. She is receiving furosemide at that time. We will go have anything else to offer at this time. She can be followed by Dr. Massey as an outpatient. Please let us know if we can be further service. Current Visit: No (3) Dyslipidemia Status: Chronic Assessment and plan: Simvastatin has been continued. Current Visit: Yes (4) Hypothyroidism Status: Chronic Assessment and plan: TSH 4.370 Current Visit: Yes (5) Anemia Status: Chronic Assessment and plan: Stable at this time. Anemia is most likely secondary to chronic renal disease. Current Visit: No Qualifiers: Chronic kidney disease stage: stage 5, not on chronic dialysis (6) CKD (chronic kidney disease) stage 5, GFR less than 15 ml/min Problem details: No acute indication for HD at this time. Status: Chronic Assessment and plan: This is routinely followed by Dr. Soria. Current Visit: No (7) Hypertension Status: Chronic Assessment and plan: Overall, fairly well controlled at this time. Current Visit: No Qualifiers: Hypertension type: essential hypertension Qualified Code(s): I10 - Essential (primary) hypertension (8) Mitral regurgitation Status: Chronic Assessment and plan: This is known to be mild per 2D echo in December 2016. Current Visit: No (9) Pulmonary hypertension Status: Chronic Assessment and plan: Mild to moderate pulmonary hypertension per most recent echocardiogram. Current Visit: No (10) Generalized weakness Status: Acute Current Visit: No History of Present Illness - Data of Consult Patient: new to practice Consult date: 12/21/16 Requesting Physician: Nimisha Grewal - Consult Narrative Reason for consult: New onset atrial fibrillation History of present illness: PRIMARY RECOVERY ASSISTANT: DR. MASSEY CARDIOLOGY CONSULT NOTE: NEW ONSET ATRIAL FIBRILLATION Ms. Haas is a 86 year old white female with risk factors significant for: Age , hypertension, hyperlipidemia, and sedentary lifestyle. Past medical history including hypothyroidism, chronic kidney disease routinely followed by Dr. Soria. Patient was recently discharged from the hospital on December 15 after admission and treatment for shortness of breath with large left pleural effusion. During hospital admission, she was noted to be anemic and slightly thrombocytopenic, and this was contributed to chronic anemia with history of severe disease. Ms. Haas was directly admitted to Dr. Turner's clinic to the hospital yesterday per hospital medicine service after she presented to his office complaining of shortness of breath which have worsened since hospital discharge, and patient's son reported they have noticed patient to have some generalized weakness and confusion with recent falls. Chest x-ray on December 20 showed a low volume left pleural effusion which is slightly increased when compared to previous chest x-ray on December 15. Patient had an abdominal ultrasound for some abdominal swelling. On ultrasound, bilateral pleural effusions were noted, borderline sized common bile duct, hepatic and renal cysts -81 mm complex cyst in upper pole left kidney with solid components multiple septations. Pulmonary is also following patient this admission. Cardiology is now asked to see as she has had EKG since admission interpreted as atrial fibrillation. Review of twelve-lead EKG and site monitor strips reveal what appears to be sinus rhythm with a very rare PAC. During previous hospital admission, patient was evaluated with echo during cardiac workup for shortness of breath. Echocardiogram with LV ejection fraction 50-55%, mild LVH, moderately thickened mitral valve with mild MR, mild AV sclerosis without stenosis, TR with a PA pressure 50 mmHg. Patient at that time also had an EKG interpreted as atrial fibrillation, it was reviewed by Dr. Fox Massey, and this was also found to be of sinus mechanism. Ms. Haas is resting quietly upon exam. Her granddaughter is present with her at bedside. Patient rouses easily, and she is pleasant. Patient is planned for thoracentesis later today. She is not having any overt shortness of breath at this time, and she is not experiencing any chest pain or tightness. No orthopnea, PND, palpitations, syncope, or syncope. Blood pressure is stable with SBP ranging 140s-150s. Pulse 60s and regular by exam. This patient has not had atrial fibrillation but has had frequent PACs. She has had a recurrent pleural effusion that is probably multifactorial. She has no evidence of overt heart failure even though she has elevated BNP. She has multiple medical problems as outlined. She needs aggressive treatment for her hypertension. Mild diuresis may be of benefit but her renal function may not tolerate much of this. Her chest x-ray with a left pleural effusion but her plantar vasculature does not reveal evidence for heart failure. No further cardiac evaluation at this time. Certainly not available to assist. She can be followed by Dr. Massey as an outpatient. Labs reviewed. H&H 10.2/33.2. Platelet 157,000. Potassium 4.2. Magnesium 2.0. Creatinine 4.6 with GFR of 8 and BUN 64. Flat, bowen zone troponin 0.030. BNP 1162. TSH 4.370. CC: Nimisha Grewal MD - Home Medications and Allergies Home Medications: Home Medications Medication Instructions Recorded Confirmed Type Allopurinol 150 mg PO DAILY 12/06/16 12/20/16 History Amlodipine Besylate 7.5 mg PO DAILY 12/06/16 12/20/16 History Citalopram [CeleXA] 20 mg PO DAILY 12/06/16 12/20/16 History Fenofibrate 160 mg PO DAILY W/BREAKFAST 12/06/16 12/20/16 History Gabapentin 300 mg PO DAILY 12/06/16 12/20/16 History Levothyroxine Tab [Synthroid Tab] 125 mcg PO DAILY@0700 12/06/16 12/20/16 History Metoprolol Tartrate 100 mg PO BID 12/06/16 12/20/16 History Omeprazole 20 mg PO BID 12/06/16 12/20/16 History Ondansetron Tab [Zofran Tab] 4 mg PO Q8HR PRN 12/06/16 12/20/16 History Simvastatin 40 mg PO BEDTIME 12/06/16 12/20/16 History Torsemide 5 mg PO DAILY 12/06/16 12/20/16 History cloNIDine TAB [Catapres Tab] 0.3 mg PO DAILY 12/06/16 12/20/16 History Ascorbic Acid [Vitamin C] 500 mg PO DAILY 12/20/16 12/20/16 History Cetirizine Tab [ZyrTEC Tab] 10 mg PO DAILY 12/20/16 12/20/16 History Allergies/Adverse Reactions: Allergies Allergy/AdvReac Type Severity Reaction Status Date / Time Amoxicillin [From Augmentin] Allergy Unknown/Unable Verified 12/20/16 17:39 to obtain aspirin Allergy Unknown/Unable Verified 12/20/16 17:39 to obtain clavulanic acid Allergy Unknown/Unable Verified 12/20/16 17:39 [From Augmentin] to obtain Sulfa (Sulfonamide Allergy Unknown/Unable Verified 12/06/16 14:14 Antibiotics) to obtain - Constitutional Constitutional: Present: fatigue, weakness. Absent: anorexia, daytime sleepiness, fever(s), headache(s), night sweats, weight gain, weight loss - EENT Eyes: Absent: blurry vision, loss of vision Ears: Present: decreased hearing. Absent: ear pain Nose, mouth and throat: Absent: dysphagia, epistaxis, nasal congestion, neck pain, throat swelling, tongue swelling - Cardiovascular Cardiovascular: Present: dyspnea. Absent: chest pain at rest, chest pain with activity, claudication, diaphoresis, dyspnea on exertion, edema, radiating jaw, neck or arm pain, lightheadedness, orthopnea, palpitations, PND - Respiratory Respiratory: Present: cough (Nonproductive), dyspnea. Absent: hemoptysis, dyspnea on exertion, change in phlegm color - Gastrointestinal Gastrointestinal: Present: bloating. Absent: abdominal pain, change in bowel habits, coffee ground emesis, constipation, cramping, diarrhea, dysphagia, hematochezia, melena, nausea, vomiting, jaundice - Genitourinary Genitourinary: Absent: difficulty urinating, dysuria, flank pain, hematuria - Musculoskeletal Musculoskeletal: Present: arthralgias, limited range of motion - Neurological Neurological: Present: confusion (Prior to admission; none currently). Absent: abnormal speech, dizziness, frequent falls, syncope, tremor(s) - Psychiatric Psychiatric: Absent: anxiety, depression - Endocrine Endocrine: Absent: cold intolerance, heat intolerance - Hematologic/Lymphatic Hematologic/Lymphatic: Absent: as per HPI, easy bruising Medical,Surgical,& Family Hx - Medical History Cardio: History of: Hypertension Endocrine: History of: Dyslipidemia, Thyroid Disorder Respiratory: History of: Pneumonia Renal: History of: Renal Failure - Surgical History Abdominal Surgeries: Surgical HX of: Cholecystectomy Orthopedic Surgeries: Surgical HX of;: Spinal Surgery - Family History Family History: Reports;: Family Heart Disease - Social History Smoking Status: Never smoker Frequency of Alcohol Use: None Type of Drug Use: None Physical Examination Vital Signs Temp Pulse Resp BP Pulse Ox 97.7 F 62 18 162/72 90 L 12/20/16 17:52 12/20/16 17:52 12/20/16 17:52 12/20/16 17:52 12/20/16 17:52 General: Present: Other (Frail, appears chronically ill) HEENT: Present: PERRL, Normocephaly, Mucus Membranes Moist Neck: Present: Supple Neck, Midline Trachea, No JVD/HJR, No Bruit Cardiac: Present: Reg Rate and Rhythm, Systolic Murmur Neuro: Present: Grossly Intact. Absent: Numbness, Weakness, Resting Tremor, Essential Tremor Abdomen: Present: Soft, No Pulsations/Bruits, Decreased Bowel Sounds, Other ( Abdominal bloating). Absent: Tender, Firm, Distended Skin: Present: Clear. Absent: Rash, Suspicious Lesions Musculoskeletal: Present: Decreased Range of Motion Extremities: Present: No Clubbing, No Cyanosis, Normal Upper Extr. Pulses (3+ bilaterally), Normal Lower Extr. Pulses (2+ bilaterally), Edema (Trace bilateral lower extremity), Capillary Refill (Normal) Result/EKG - Labs CBC & BMP: 12/21/16 06:11 12/21/16 08:51 Lab Results: I have reviewed the past 24 hour labs Labs: Laboratory Results - last 24 hr 12/21/16 12/21/16 12/21/16 06:11 06:11 06:11 WBC 7.1 RBC 3.47 L Hgb 10.2 L Hct 33.2 L MCV 95.7 MCH 29 MCHC 30.7 L RDW 16.3 Plt Count 157 MPV 11.6 Neut % (Auto) 46.9 Lymph % (Auto) 36.6 Zapata % (Auto) 12.5 Eos % (Auto) 2.0 Baso % (Auto) 0.3 Neut # (Auto) 3.3 Lymph # (Auto) 2.6 Zapata # (Auto) 0.9 H Eos # (Auto) 0.1 Baso # (Auto) 0.0 Immature Gran % 1.7 Nucleated RBC % 0.3 Immature Gran # 0.12 Nucleated RBCs # 0.02 Morphology Comment INR PT Patient/Control Mix Sodium 141 Potassium 4.4 Chloride 105 Carbon Dioxide 25 Anion Gap 15.4 H BUN 64 H Creatinine 4.60 H GFR Calculation 8 BUN/Creatinine Ratio 13.00 Glucose 79 POC Glucose Calculated Osmolality 297.3 Calcium 8.3 L Magnesium 2.0 Total Bilirubin 1.20 H AST 27 ALT 16 Alkaline Phosphatase 54 Total Creatine Kinase CK-MB (CK-2) Troponin I B-Natriuretic Peptide 1162 H Total Protein 4.9 L Albumin 2.8 L Globulin 2.1 L Albumin/Globulin Ratio 1.3 Free T4 TSH 3rd Generation 12/21/16 12/21/16 12/21/16 08:51 08:51 10:02 WBC RBC Hgb Hct MCV MCH MCHC RDW Plt Count MPV Neut % (Auto) Lymph % (Auto) Zapata % (Auto) Eos % (Auto) Baso % (Auto) Neut # (Auto) Lymph # (Auto) Zapata # (Auto) Eos # (Auto) Baso # (Auto) Immature Gran % Nucleated RBC % Immature Gran # Nucleated RBCs # Morphology Comment INR 1.2 PT Patient/Control Mix 13.2 Sodium Potassium 4.2 Chloride Carbon Dioxide Anion Gap BUN Creatinine GFR Calculation BUN/Creatinine Ratio Glucose POC Glucose Calculated Osmolality Calcium Magnesium 2.0 Total Bilirubin AST ALT Alkaline Phosphatase Total Creatine Kinase 62 CK-MB (CK-2) 2.7 Troponin I 0.030 B-Natriuretic Peptide Total Protein Albumin Globulin Albumin/Globulin Ratio Free T4 1.38 TSH 3rd Generation 4.370 H 12/21/16 11:39 WBC RBC Hgb Hct MCV MCH MCHC RDW Plt Count MPV Neut % (Auto) Lymph % (Auto) Zapata % (Auto) Eos % (Auto) Baso % (Auto) Neut # (Auto) Lymph # (Auto) Zapata # (Auto) Eos # (Auto) Baso # (Auto) Immature Gran % Nucleated RBC % Immature Gran # Nucleated RBCs # Morphology Comment INR PT Patient/Control Mix Sodium Potassium Chloride Carbon Dioxide Anion Gap BUN Creatinine GFR Calculation BUN/Creatinine Ratio Glucose POC Glucose 150 H Calculated Osmolality Calcium Magnesium Total Bilirubin AST ALT Alkaline Phosphatase Total Creatine Kinase CK-MB (CK-2) Troponin I B-Natriuretic Peptide Total Protein Albumin Globulin Albumin/Globulin Ratio Free T4 TSH 3rd Generation - Impressions Impressions: ECG with sinus rhythm and frequent PACs. - Diagnostic Findings Procedure: Chest x-ray: image reviewed by me, report reviewed by me - EKG EKG results: interpreted by me, no acute changes EKG shows: sinus rhythm Kareem Antoine John Timothy, MD, personally performed the services described in this documentation, ascribed by Arely Cole RN in my presence, and it is both accurate and complete .
[2016-12-21 15:11] LABS: Amylase,Pleural Fluid 10 U/L; Glucose,Pleural Fluid 105 MG/DL; LDH,Pleural Fluid 66 U/L; Total Protein,Pleural Fluid < 1.0 G/DL
[2016-12-21 15:22] LABS: Lymphocytes,Pleural Fluid 94 %; Monocytes,Pleural Fluid 3 %; Neutrophils,Pleural Fluid 3 %; RBC,Pleural Fluid 366 T/CUMM
[2016-12-21] MEDS: FUROSEMIDE 40 MG/4 ML VIAL IV SCH (15:30)
--- NOTE | 2016-12-21 16:40 | Nephrology Consult Note ---
History of Present Illness Chief complaint: Increased BUN and creatinine History of present illness: Ms. Haas is a 86 year old female with chronic kidney disease is followed by Dr. Soria in the outpatient setting. The patient was just discharged from the hospital for shortness of breath and pneumonia. The family reports her creatinine was up to 7 recently. On admission here creatinine 4.6 mg/dL this actually decreased from a week or 2 ago when it was around 5 mg/dL. Patient is admitted now for shortness of breath. She is found to have significant fluid in her pleural space and had about 700 cc of pleural fluid removed today. The patient is noted to have mild mitral and tricuspid regurgitation as well as a elevated right arterial pressure of 50 mmHg with pulmonary hypertension. Her ejection fraction is noted be 50-55%. The patient's heart rate is around 55-60 she is on multiple rate lowering medications for atrial fibrillation. The patient's granddaughter states the patient has developed some abdominal swelling as well. The patient states she has been having shortness of breath for the past year but is gotten worse recently. ROS: Head - denies headaches ENT - denies sore throat Lymphatics - denies lymphadenopathy Hematology - denies bleeding problems Heart - denies chest pain Lungs -positive shortness of breath Abdomen - denies abdominal pain Musculoskeletal -positive arthritis Skin - denies rash Neurology - denies stroke General - denies fever PE: General: in no acute distress Eyes: Pupils are round and reactive, conjunctivae are clear ENT: Nose is clear, O/P is benign Neck: Supple, no thyromegaly Lymphatics: No cervical, supraclavicular or axillary adenopathy Heart: Irregular irregular rhythm, trace to 1+ thigh edema Lungs: Clear to auscultation anteriorly, chest expansion symmetric Abdomen: Soft, normoactive bowel sounds, no hepatomegaly Musculoskeletal: No joint erythema or effusions or joint asymmetry Skin: Normal turgor, normal hydration, no rash, she does have multiple bruises across her forearms and extravasation of subcutaneous blood Neuro/Psych: Alert and cooperative with fair insight Home Medications Medication Instructions Recorded Confirmed Type Allopurinol 150 mg PO DAILY 12/06/16 12/20/16 History Amlodipine Besylate 7.5 mg PO DAILY 12/06/16 12/20/16 History Citalopram [CeleXA] 20 mg PO DAILY 12/06/16 12/20/16 History Fenofibrate 160 mg PO DAILY W/BREAKFAST 12/06/16 12/20/16 History Gabapentin 300 mg PO DAILY 12/06/16 12/20/16 History Levothyroxine Tab [Synthroid Tab] 125 mcg PO DAILY@0700 12/06/16 12/20/16 History Metoprolol Tartrate 100 mg PO BID 12/06/16 12/20/16 History Omeprazole 20 mg PO BID 12/06/16 12/20/16 History Ondansetron Tab [Zofran Tab] 4 mg PO Q8HR PRN 12/06/16 12/20/16 History Simvastatin 40 mg PO BEDTIME 12/06/16 12/20/16 History Torsemide 5 mg PO DAILY 12/06/16 12/20/16 History cloNIDine TAB [Catapres Tab] 0.3 mg PO DAILY 12/06/16 12/20/16 History Ascorbic Acid [Vitamin C] 500 mg PO DAILY 12/20/16 12/20/16 History Cetirizine Tab [ZyrTEC Tab] 10 mg PO DAILY 12/20/16 12/20/16 History Allergies Allergy/AdvReac Type Severity Reaction Status Date / Time Amoxicillin [From Augmentin] Allergy Unknown/Unable Verified 12/20/16 17:39 to obtain aspirin Allergy Unknown/Unable Verified 12/20/16 17:39 to obtain clavulanic acid Allergy Unknown/Unable Verified 12/20/16 17:39 [From Augmentin] to obtain Sulfa (Sulfonamide Allergy Unknown/Unable Verified 12/06/16 14:14 Antibiotics) to obtain Medical,Surgical,& Family Hx - Medical History Cardio: History of: Hypertension Endocrine: History of: Dyslipidemia, Thyroid Disorder Respiratory: History of: Pneumonia Renal: History of: Renal Failure - Surgical History Abdominal Surgeries: Surgical HX of: Cholecystectomy Orthopedic Surgeries: Surgical HX of;: Spinal Surgery - Family History Family History: Reports;: Family Heart Disease - Social History Smoking Status: Never smoker Frequency of Alcohol Use: None Type of Drug Use: None Exam - Vital Signs Vital signs: Period Temp Pulse Resp BP Sys/Garcia Pulse Ox Last 24 Hr 97.4 F-98.5 F 51-66 14-20 103-162/46-78 90-100 Results - Labs CBC & BMP: 12/21/16 06:11 12/21/16 08:51 Assessment and Plan (1) Acute on chronic renal failure Status: Acute Assessment and plan: This patient's creatinine is around 4.6 mg/dL, her granddaughter states her creatinine as an outpatient she usually around 3 mg/dL, this value may be a new baseline for her. Her renal insufficiency is thought to be due to hypertension. Current Visit: No (2) Volume overload Status: Acute Assessment and plan: This patient's having problems with fluid accumulation in her pleural space as well as what sounds like her abdomen and lower extremities, I wonder if allowing her heart rate to drift up some from the 60 range would help her better perfuse her kidneys and perhaps excrete more sodium and fluid. I will defer to cardiology ultimately with regards to this. Current Visit: Yes (3) Atrial fibrillation Status: Resolved Current Visit: Yes (4) Generalized weakness Status: Acute Current Visit: No (5) Pleural effusion Status: Acute Current Visit: No (6) Anemia Status: Chronic Assessment and plan: Patient's hematocrit is 33% Current Visit: No Qualifiers: Chronic kidney disease stage: stage 5, not on chronic dialysis (7) Hypertension Status: Chronic Assessment and plan: Patient's blood pressure on the systolic side is ranging between 110-120 most occasions Current Visit: No Qualifiers: Hypertension type: essential hypertension Qualified Code(s): I10 - Essential (primary) hypertension (8) Mitral regurgitation Status: Chronic Current Visit: No (9) Pulmonary hypertension Status: Chronic Current Visit: No (10) Difficult intravenous access Status: Acute Assessment and plan: This patient has had difficulty with intravenous access as well as blood draws, they are thinking about having a central line placed such as a PICC for a port for this reason. I explained to them that we like to try and preserve the veins as much as possible for AV access in the future for dialysis and that these central vein ports can sometimes decrease our opportunity for access placement. Despite this future problem I think it is probably reasonable to go ahead and place a port for PICC for blood draws and IV medications. Current Visit: Yes
[2016-12-21] MEDS: ENOXAPARIN 30 MG/0.3 ML SYRINGE SUBCUT SCH (17:57)
[2016-12-21] MEDS: SIMVASTATIN 40 MG TABLET PO SCH (20:49)
[2016-12-22] MEDS: LEVOTHYROXINE 125 MCG TABLET PO SCH (06:06)
[2016-12-22 06:07] LABS: Basophils % 0.2 % (0.0-0.8); Eosinophils # 0.1 10*3/uL (0.0-0.87); Hematocrit 30.1 VOL% (35.7-47.0); Hemoglobin 9.2 GM/DL (12.0-16.0); Immature Granulocytes % 1.1 %; Immature Granulocytes Absolute 0.06 #; Lymphocytes # 1.6 10*3/uL (1.4-4.0); Lymphocytes % 29.7 % (21.3-54.2); Mean Corpuscular HGB Conc 30.6 GM/DL (32-36); Mean Corpuscular Hemoglobin 29 PG (27-34); Mean Corpuscular Volume 94.7 FL (87-102); Mean Platelet Volume 11.8 FL (9.6-12.0); Monocytes # 0.7 10*3/uL (0.11-0.8); Monocytes % 12.3 % (1.7-12.7); NRBC # 0.02 10*3/uL; Neutrophils % 54.7 % (38.7-73.9); Platelet Count 152 T/CUMM (130-400); Red Blood Count 3.18 MC/CUMM (3.8-5.5); White Blood Count 5.5 T/CUMM (4-12)
[2016-12-22 06:31] LABS: Calcium 8.5 MG/DL (8.5-10.1); Potassium 4.2 MMOL/L (3.5-5.1)
--- NOTE | 2016-12-22 07:14 | XRay Report ---
Exam: XR chest 1V portable Date: 12/22/2016 4:00 AM Indication: Shortness of breath Comparison: 12/21/2016 Technical: AP portable Findings: Cardiomegaly present with ASVD. Low volume effusions are present. External cardiac leads are present. Small nodes present in the mediastinum. Bony structures reveal no acute findings with underlying component of arthritic change at the shoulders and bony demineralization. No obvious consolidating infiltrates or pneumothorax present Impression: 1. Cardiomegaly with tiny low volume effusions and atelectatic change PROCEDURE INTERPRETED AT [facility] DEPARTMENT OF RADIOLOGY Final Report Signed by: Dr. Sammy Maharaj
[2016-12-22] MEDS ORDERED: TORSEMIDE PO SCH (09:00)
--- NOTE | 2016-12-22 09:38 | Interventional Radiology Rpt ---
Exam: IR cvc insert nt >5, IR fluoro guide cv cath Date: 12/22/2016 Indication: Dialysis patient no IV access Comparison: None Fluoroscopy time 0.6 minutes single image obtained HOWARD Maharaj D.O. Human Resources Compliance Manager RT Kamini Findings: The risk and benefits were explained and informed consent was obtained. Ultrasound guidance was utilized and fluoroscopy guidance. Maximal sterile barrier was utilized with the service unit operator oil well and assistance wearing, caps, gown ,gloves ,facemask and hand washing was utilized. The patient arm was cleansed with ChloraPrep. 1% local lidocaine was administered. Images stored and captured. . A single puncture was made with ultrasound guidance with placement of the 035 wire through the small sheath. A 7 Bengali 20 cm triple lumen catheter was placed with the distal tip in the right atrium. The catheter was secured to the skin with silk suture. Estimated blood loss none Complications none Condition stable Specimen none Impression: 1. Satisfactory ultrasound and fluoroscopy guided PICC line placement. PROCEDURE INTERPRETED AT [facility] DEPARTMENT OF RADIOLOGY Final Report Signed by: Dr. Sammy Maharaj
--- NOTE | 2016-12-22 09:58 | Post Interventional Procedure ---
Pre-op diagnosis: stage 3 renal dx Post-op diagnosis: same Procedure: us fluoro central line placement Radiologist: Sammy Maharaj Specimens: none sent Estimated blood loss: none Complications: none Condition: stable Description/Findings: Exam: IR cvc insert nt >5, IR fluoro guide cv cath Ultrasound guidance for vascular access. See dictated report below Date: 12/22/2016 Indication: Dialysis patient no IV access Comparison: None Fluoroscopy time 0.6 minutes single image obtained VIR Sammy Maharaj D.O. Nurses Medical Assistants Phlebotomists Shan Perea, RT Findings: The risk and benefits were explained and informed consent was obtained. Ultrasound guidance was utilized and fluoroscopy guidance. Maximal sterile barrier was utilized with the dicer machine operator and assistance wearing, caps, gown ,gloves ,facemask and hand washing was utilized. The patient arm was cleansed with ChloraPrep. 1% local lidocaine was administered. Images stored and captured. . A single puncture was made with ultrasound guidance with placement of the 035 wire through the small sheath. A 7 Honduran 20 cm triple lumen catheter was placed with the distal tip in the right atrium. The catheter was secured to the skin with silk suture. Estimated blood loss none Complications none Condition stable Specimen none Impression: 1. Satisfactory ultrasound and fluoroscopy guided PICC line placement. PROCEDURE INTERPRETED AT [facility] DEPARTMENT OF RADIOLOGY Final Report Signed by: Dr. Sammy Maharaj
[2016-12-22] MEDS: FUROSEMIDE 40 MG/4 ML VIAL IV SCH ×2 (10:14→16:36)
[2016-12-22] MEDS: GABAPENTIN 300 MG CAPSULE PO SCH (10:15)
[2016-12-22] MEDS: amLODIPine 2.5 MG TABLET PO SCH (10:15)
[2016-12-22] MEDS: CETIRIZINE 10 MG TABLET PO SCH (10:15)
[2016-12-22] MEDS: ALLOPURINOL 300 MG TABLET PO SCH (10:15)
[2016-12-22] MEDS: CITALOPRAM 20 MG TABLET PO SCH (10:15)
[2016-12-22] MEDS: METOPROLOL TARTRATE 100 MG TABLET PO SCH ×2 (10:15→20:38)
[2016-12-22] MEDS: ASCORBIC ACID 500 MG TABLET PO SCH (10:15)
[2016-12-22] MEDS: FENOFIBRATE 160 MG TABLET PO SCH (10:15)
[2016-12-22] MEDS: PANTOPRAZOLE 40 MG TABLET PO SCH (10:16)
--- NOTE | 2016-12-22 10:38 | Pulmonology Progress Note ---
Pulmonary - PN: Subj Interval history: This 86-year-old white female whom I saw in pulmonary consultation on 12/21/2016. My impressions were. #1: Acute left-sided pleural effusion most likely secondary to acute congestive heart failure, but consider other causes #2: Recent hospitalization as above. Thoracentesis was performed and pleural fluid was found to be a transudate. #3: Chronic renal failure followed by Dr. Jose Soria #4: Mild mitral valve regurgitation with a pulmonary artery pressure of 50 mmHg consistent with mild pulmonary hypertension. Note, the patient had medicine of Norvasc 7.5 mg daily needs to be continued. #5: History of anemia #6: Corrected hypothyroidism #7: Hypertension #8: Hyperlipidemia #9: History of gout #10: See past history 12/22/2016. Will 12/21/2016 the patient had a thoracentesis. The chemistry showed a transudate as predicted. Cytologies are pending. X-rays have shown bilateral pleural effusions and I think this is all related to congestive heart failure. Abdominal ultrasounds have shown a 81 mm complex cyst in the upper pole of the left kidney with solid components and multiple septations. The radiologist is said a contrasted CT is recommended for further evaluation since cystic tumor cannot be excluded. If this area is producing irritation of the diaphragm it could be the cause of a transudate. If if this were a cancer indicated and if there were spread to the diaphragm or the pleural space and exudate would be most likely peer. Note to cytologies are pending. For the present time I would suggest we continue to treat this as heart failure and decide whether or not the kidney cyst needs to be evaluated. Pulmonary will be on-call this weekend if needed. Physical exam. Vital signs. See below Psychiatric oriented 3 Chest. Clear Heart lateral PMI with a systolic ejection murmur that radiates to the left anterior axillary line Abdomen nontender Extremities. Nothing to suggest deep venous thrombophlebitis Neurologic. Cranial nerves are intact long track motor functions intact. Gait was not tested. Face. Symmetrical. No swelling of the lips or tongue. Neck. Symmetrical. No masses. Lymphatics. No submandibular cervical supraclavicular or epitrochlear adenopathy. The remainder the physical exam is Plan: 12/21/2016 #1: The patient has another thoracenesis this admission, we would recommend the fluid be sent for cytology, CBC with differential, glucose, total protein, SGOT, LDH, Gram stain, bacterial culture, TB stain and culture, and fungal stains and cultures #2: Agree with nephrology consultation #3: See orders 12/22/2016. 1. See today's note above 2. We will see the patient on Sunday. Pulmonary information delivery analyst if needed Exam (Progress Note) - Constitutional Vitals: Period Temp Pulse Resp BP Sys/Garcia Pulse Ox Last 24 Hr 97.1 F-98.1 F 51-66 14-20 103-138/46-68 97-100 Results - Labs CBC & BMP: 12/22/16 04:32 12/22/16 04:32
--- NOTE | 2016-12-22 11:25 | Nephrology Progress Note ---
Nephrology - PN: Subj Interval history: Patient denies shortness of breath. Review of systems -patient states her urine output has increased with the Lasix Physical exam general patient is chronically ill-appearing, she has 1+ lower extremity edema Assessment/plan 1. Acute renal failure on chronic renal failure-patient's creatinine stable at 4.6 mg/dL the patient's baseline creatinine per the family is around 3 mg/dL, recently however her creatinine has been as high as 7 mg/dL. 2. Volume overload-this patient presented with shortness of breath and pleural effusions-she is required a thoracentesis for fluid removal, she continues on Lasix 40 mg twice a day she states her urine output is increased with this however this is not really reflected in her daily weights or her urine output ( the patient does not have a [place] in place). 3. Atrial fibrillation-patient's heart rate has been around 55-66 the past 24 hours or so 4. Pulmonary hypertension-patient has a pulmonary artery pressure estimated be around 50 mmHg, she has mild mitral and tricuspid regurgitation. Exam (PN)-Nephrology - Vital Signs Vital signs: Period Temp Pulse Resp BP Sys/Garcia Pulse Ox Last 24 Hr 97.1 F-98.1 F 51-66 14-20 103-138/46-68 97-100 - Lab 12/22/16 04:32 12/22/16 04:32 Most recent lab results Calcium 8.5 MG/DL (8.5-10.1) 12/22/16 04:32 Magnesium 2.0 MG/DL (1.8-2.4) 12/21/16 08:51 Assessment and Plan (1) Acute on chronic renal failure Status: Acute Assessment and plan: This patient's creatinine is around 4.6 mg/dL, her granddaughter states her creatinine as an outpatient she usually around 3 mg/dL, this value may be a new baseline for her. Her renal insufficiency is thought to be due to hypertension. Current Visit: No (2) Volume overload Status: Acute Assessment and plan: This patient's having problems with fluid accumulation in her pleural space as well as what sounds like her abdomen and lower extremities, I wonder if allowing her heart rate to drift up some from the 60 range would help her better perfuse her kidneys and perhaps excrete more sodium and fluid. I will defer to cardiology ultimately with regards to this. Current Visit: Yes (3) Atrial fibrillation Status: Resolved Current Visit: Yes (4) Generalized weakness Status: Acute Current Visit: No (5) Pleural effusion Status: Acute Current Visit: No (6) Anemia Status: Chronic Assessment and plan: Patient's hematocrit is 33% Current Visit: No Qualifiers: Chronic kidney disease stage: stage 5, not on chronic dialysis (7) Hypertension Status: Chronic Assessment and plan: Patient's blood pressure on the systolic side is ranging between 110-120 most occasions Current Visit: No Qualifiers: Hypertension type: essential hypertension Qualified Code(s): I10 - Essential (primary) hypertension (8) Mitral regurgitation Status: Chronic Current Visit: No (9) Pulmonary hypertension Status: Chronic Current Visit: No (10) Difficult intravenous access Status: Acute Assessment and plan: This patient has had difficulty with intravenous access as well as blood draws, they are thinking about having a central line placed such as a PICC for a port for this reason. I explained to them that we like to try and preserve the veins as much as possible for AV access in the future for dialysis and that these central vein ports can sometimes decrease our opportunity for access placement. Despite this future problem I think it is probably reasonable to go ahead and place a port for PICC for blood draws and IV medications. Current Visit: Yes
--- NOTE | 2016-12-22 15:25 | Hospitalist Progress Note ---
Assessment and Plan (1) Volume overload Status: Acute Assessment and plan: with moderate size left sided pleural effusion.S/p thoracocentesis. She had about 700 cc of pleural fluid removed yesterday. Plan continue with IV diuretics. Current Visit: Yes (2) Chronic kidney disease, stage IV (severe) Status: Chronic Assessment and plan: Nephrology is seeing, follow recommendations. Current Visit: No (3) Anemia Status: Chronic Assessment and plan: most likely due to CRF. Current Visit: No Qualifiers: Chronic kidney disease stage: stage 5, not on chronic dialysis (4) Hypertension Status: Chronic Assessment and plan: stable Current Visit: No Qualifiers: Hypertension type: essential hypertension Qualified Code(s): I10 - Essential (primary) hypertension (5) Pulmonary hypertension Status: Chronic Assessment and plan: with mild aortic valve sclerosis without stenosis, and mild tricuspid valve regurgitation. Plan continue with Norvasc and other regime cardiology to see. Current Visit: No (6) Hypothyroidism Status: Chronic Assessment and plan: continue with supplements Current Visit: Yes (7) Dyslipidemia Status: Chronic Assessment and plan: continue with statins Current Visit: Yes (8) Pleural effusion Status: Acute Assessment and plan: moderate sized left pleural effusion. -s/p thoracocentesis,pleural studies noted. Cultures negative so far.Continue with IV Lasix -no clinical evidence of infection, will continue hold antibiotics Current Visit: No (9) Atrial fibrillation Status: Resolved Assessment and plan: with controlled rate- ?Newonset-most likely paraxysmal -Cardiac enzymes are negative,Cardiology saw and they reviewed the EKG and the telemetry monitoring shows patient is in normal sinus rhythm with very rare PAC. No atrial fibrillation appreciated. Current Visit: Yes Hospitalist: Subjective Interval history: Patient had a PICC line placed today. She also had about 700 cc of pleural fluid removed yesterday.She breathes much better. Exam - Constitutional Vitals: Period Temp Pulse Resp BP Sys/Garcia Pulse Ox Last 24 Hr 97.1 F-98.3 F 51-66 16-20 108-154/45-70 94-99 General appearance: no acute distress - Head Head exam: Present: normal inspection - Respiratory Respiratory exam: Present: decreased breath sounds - Cardiovascular Cardiovascular exam: Present: regular rate and rhythm - GI/Abdominal GI/Abdominal exam: Present: normal bowel sounds - Extremities Exam Extremities exam: Present: normal inspection Results - Labs CBC & BMP: 12/22/16 04:32 12/22/16 04:32 Lab Results: I have reviewed the past 24 hour labs
[2016-12-22] MEDS: ENOXAPARIN 30 MG/0.3 ML SYRINGE SUBCUT SCH (18:17)
[2016-12-22] MEDS: SIMVASTATIN 40 MG TABLET PO SCH (20:38)
[2016-12-23] MEDS: LEVOTHYROXINE 125 MCG TABLET PO SCH (06:25)
--- NOTE | 2016-12-23 08:24 | Nephrology Progress Note ---
Nephrology - PN: Subj Interval history: Patient is resting family is at the bedside. Condition is about the same. Serum creatinine is noted be 4.6 which is unchanged. Exam (PN)-Nephrology - Vital Signs Vital signs: Period Temp Pulse Resp BP Sys/Garcia Pulse Ox Last 24 Hr 97.0 F-98.2 F 55-63 16-20 108-153/45-62 90-97 - General Appearance General appearance: well-developed, frail Neck: supple Respiratory: clear Cardiology: regular rate, irregular rhythm Gastrointestinal: normoactive bowel sounds, no tenderness Psychiatric: mood/affect appropriate - Lab 12/22/16 04:32 12/22/16 04:32 Most recent lab results Calcium 8.5 MG/DL (8.5-10.1) 12/22/16 04:32 Magnesium 2.0 MG/DL (1.8-2.4) 12/21/16 08:51 Assessment and Plan (1) Pleural effusion Status: Acute Current Visit: No (2) Anemia Status: Chronic Current Visit: No Qualifiers: Chronic kidney disease stage: stage 5, not on chronic dialysis (3) CKD (chronic kidney disease) stage 5, GFR less than 15 ml/min Problem details: No acute indication for HD at this time. Status: Chronic Current Visit: No (4) Volume overload Status: Acute Current Visit: Yes
[2016-12-23] MEDS: GABAPENTIN 300 MG CAPSULE PO SCH (09:59)
[2016-12-23] MEDS: FENOFIBRATE 160 MG TABLET PO SCH (09:59)
[2016-12-23] MEDS: ASCORBIC ACID 500 MG TABLET PO SCH (09:59)
[2016-12-23] MEDS: METOPROLOL TARTRATE 100 MG TABLET PO SCH ×2 (09:59→20:57)
[2016-12-23] MEDS: PANTOPRAZOLE 40 MG TABLET PO SCH (09:59)
[2016-12-23] MEDS: CETIRIZINE 10 MG TABLET PO SCH (09:59)
[2016-12-23] MEDS: FUROSEMIDE 40 MG/4 ML VIAL IV SCH ×2 (09:59→17:52)
[2016-12-23] MEDS: CITALOPRAM 20 MG TABLET PO SCH (09:59)
[2016-12-23] MEDS: amLODIPine 2.5 MG TABLET PO SCH (09:59)
[2016-12-23] MEDS ORDERED: LEVOFLOXACIN INJ 500 MG in PREMIX 1 EACH IV SCH (10:00)
--- NOTE | 2016-12-23 10:33 | Hospitalist Progress Note ---
Assessment and Plan (1) Volume overload Status: Acute Assessment and plan: with moderate size left sided pleural effusion.S/p thoracocentesis. She had about 700 cc of pleural fluid. She breathes better. Plan continue with IV diuretics. Current Visit: Yes (2) Chronic kidney disease, stage IV (severe) Status: Chronic Assessment and plan: Nephrology is seeing, follow recommendations. Current Visit: No (3) Anemia Status: Chronic Assessment and plan: most likely due to CRF. Follow cbc Current Visit: No Qualifiers: Chronic kidney disease stage: stage 5, not on chronic dialysis (4) Hypertension Status: Chronic Assessment and plan: stable Current Visit: No Qualifiers: Hypertension type: essential hypertension Qualified Code(s): I10 - Essential (primary) hypertension (5) Pulmonary hypertension Status: Chronic Assessment and plan: with mild aortic valve sclerosis without stenosis, and mild tricuspid valve regurgitation. Plan continue with Norvasc and other regime Current Visit: No (6) Hypothyroidism Status: Chronic Assessment and plan: continue with supplements Current Visit: Yes (7) Dyslipidemia Status: Chronic Assessment and plan: continue with statins Current Visit: Yes (8) Pleural effusion Status: Acute Assessment and plan: moderate sized left pleural effusion. -s/p thoracocentesis,pleural studies noted. Cultures negative so far.Continue with IV Lasix -no clinical evidence of infection, will continue hold antibiotics Current Visit: No (9) Atrial fibrillation Status: Resolved Assessment and plan: with controlled rate- ?Newonset-most likely paraxysmal -Cardiac enzymes are negative,Cardiology saw and they reviewed the EKG and the telemetry monitoring shows patient is in normal sinus rhythm with very rare PAC. No atrial fibrillation appreciated. Current Visit: Yes Hospitalist: Subjective Interval history: Patient had a good night. Grand daughter wanted her medications sorted out.She is breathing well on O2 NC. Exam - Constitutional Vitals: Period Temp Pulse Resp BP Sys/Garcia Pulse Ox Last 24 Hr 97.0 F-98.2 F 55-63 16-20 108-153/45-62 90-97 General appearance: no acute distress - Head Head exam: Present: normal inspection - Respiratory Respiratory exam: Present: clear to auscultation bilaterally - Cardiovascular Cardiovascular exam: Present: regular rate and rhythm - GI/Abdominal GI/Abdominal exam: Present: normal bowel sounds - Extremities Exam Extremities exam: Present: normal inspection, other (multiple bruises on the extremeties) - Neurological Exam Neurological exam: Present: alert, oriented X3 Results - Labs CBC & BMP: 12/22/16 04:32 12/22/16 04:32 Lab Results: I have reviewed the past 24 hour labs
[2016-12-23] MEDS: ALLOPURINOL 300 MG TABLET PO SCH ×2 (11:06→20:57)
--- NOTE | 2016-12-23 11:16 | Pulmonology Progress Note ---
Pulmonary - PN: Subj Interval history: 86-year-old female with chronic renal failure admitted for volume overload and found to have left-sided pleural effusion requiring thoracentesis on 12/21/16. Overnight patient has done well without any acute changes in breathing status. She feels her breathing is back to her baseline. Chest x-ray performed yesterday showed no significant change. No new issues at this time. Exam (Progress Note) - Constitutional Vitals: Period Temp Pulse Resp BP Sys/Garcia Pulse Ox Last 24 Hr 97.0 F-98.2 F 55-63 16-20 108-153/45-68 90-97 General appearance: normal weight - Head Head exam: Present: normal inspection - Eye Eye exam: Present: EOMI Pupils: Present: ABE - Neck Neck exam: Present: normal inspection - Respiratory Respiratory exam: Present: clear to auscultation bilaterally. Absent: rales, rhonchi, wheezes - Cardiovascular Cardiovascular exam: Present: regular rate and rhythm - GI/Abdominal GI/Abdominal exam: Present: normal bowel sounds - Neurological Exam Neurological exam: Present: alert, oriented X3 - Skin Skin exam: Present: normal color, warm, dry Results - Labs CBC & BMP: 12/22/16 04:32 12/22/16 04:32 - Diagnostic Findings Procedure: Chest x-ray: image reviewed by me, report reviewed by me (12/22/16: No significant pleural effusion bilaterally) Assessment and Plan (1) Pleural effusion Status: Acute Assessment and plan: Transudative, most likely due to combination of renal failure and cardiac disease. No evidence of reaccumulation on chest x-ray yesterday on examination today. Continue with diuresis and monitor for worsening respiratory status. Recommend chest x-ray on Sunday to assess volume status. Current Visit: No (2) Acute on chronic renal failure Status: Acute Assessment and plan: Creatinine stable today. Nephrology following. Current Visit: No
[2016-12-23] MEDS: ONDANSETRON 4 MG/2 ML VIAL IV PRN (11:17)
[2016-12-23] MEDS: ENOXAPARIN 30 MG/0.3 ML SYRINGE SUBCUT SCH (17:53)
[2016-12-23] MEDS: SIMVASTATIN 40 MG TABLET PO SCH (20:57)
[2016-12-24] MEDS: LEVOTHYROXINE 125 MCG TABLET PO SCH (06:50)
[2016-12-24] MEDS: CITALOPRAM 20 MG TABLET PO SCH (08:27)
[2016-12-24] MEDS: amLODIPine 2.5 MG TABLET PO SCH (08:27)
[2016-12-24] MEDS: FUROSEMIDE 40 MG/4 ML VIAL IV SCH ×2 (08:27→17:26)
[2016-12-24] MEDS: FENOFIBRATE 160 MG TABLET PO SCH (08:27)
[2016-12-24] MEDS: ASCORBIC ACID 500 MG TABLET PO SCH (08:27)
[2016-12-24] MEDS: METOPROLOL TARTRATE 100 MG TABLET PO SCH ×2 (08:27→20:31)
[2016-12-24] MEDS: PANTOPRAZOLE 40 MG TABLET PO SCH (08:28)
[2016-12-24] MEDS: GABAPENTIN 300 MG CAPSULE PO SCH (08:28)
[2016-12-24] MEDS: CETIRIZINE 10 MG TABLET PO SCH (08:28)
--- NOTE | 2016-12-24 09:16 | Nephrology Progress Note ---
Nephrology - PN: Subj Interval history: Patient is resting comfortably appears much stronger than yesterday. Serum creatinine is 4.6 which is unchanged. Family members are at the bedside. Exam (PN)-Nephrology - Vital Signs Vital signs: Period Temp Pulse Resp BP Sys/Garcia Pulse Ox Last 24 Hr 98.0 F-98.8 F 60-66 16-20 135-150/52-73 94-98 - General Appearance General appearance: well-developed, frail EENT: ATNC Neck: supple Respiratory: clear Cardiology: regular rate, regular rhythm Gastrointestinal: normoactive bowel sounds, no tenderness Neurologic: alert and oriented x3 Musculoskeletal: no clubbing Psychiatric: mood/affect appropriate - Lab 12/22/16 04:32 12/22/16 04:32 Most recent lab results Calcium 8.5 MG/DL (8.5-10.1) 12/22/16 04:32 Magnesium 2.0 MG/DL (1.8-2.4) 12/21/16 08:51 Assessment and Plan (1) Pleural effusion Status: Acute Current Visit: No (2) Anemia Status: Chronic Current Visit: No Qualifiers: Chronic kidney disease stage: stage 5, not on chronic dialysis (3) CKD (chronic kidney disease) stage 5, GFR less than 15 ml/min Problem details: No acute indication for HD at this time. Status: Chronic Current Visit: No (4) Volume overload Status: Acute Current Visit: Yes
--- NOTE | 2016-12-24 12:25 | Hospitalist Progress Note ---
Assessment and Plan (1) Volume overload Status: Acute Assessment and plan: with moderate size left sided pleural effusion.S/p thoracocentesis. She had about 700 cc of pleural fluid. She breathes better. Plan continue with IV diuretics. Current Visit: Yes (2) Chronic kidney disease, stage IV (severe) Status: Chronic Assessment and plan: Nephrology is seeing, follow recommendations. Current Visit: No (3) Anemia Status: Chronic Assessment and plan: most likely due to CRF. Follow cbc Current Visit: No Qualifiers: Chronic kidney disease stage: stage 5, not on chronic dialysis (4) Hypertension Status: Chronic Assessment and plan: stable Current Visit: No Qualifiers: Hypertension type: essential hypertension Qualified Code(s): I10 - Essential (primary) hypertension (5) Pulmonary hypertension Status: Chronic Assessment and plan: with mild aortic valve sclerosis without stenosis, and mild tricuspid valve regurgitation. Plan continue with Norvasc and other regime Current Visit: No (6) Hypothyroidism Status: Chronic Assessment and plan: continue with supplements Current Visit: Yes (7) Dyslipidemia Status: Chronic Assessment and plan: continue with statins Current Visit: Yes (8) Pleural effusion Status: Acute Assessment and plan: moderate sized left pleural effusion. -s/p thoracocentesis,pleural studies noted. Cultures negative so far.Continue with IV Lasix -no clinical evidence of infection, will not need antibiotics Current Visit: No (9) Atrial fibrillation Status: Resolved Assessment and plan: with controlled rate- ?Newonset-most likely paraxysmal -Cardiac enzymes are negative,Cardiology saw and they reviewed the EKG and the telemetry monitoring shows patient is in normal sinus rhythm with very rare PAC. No atrial fibrillation appreciated. Current Visit: Yes (10) Debility Status: Acute Assessment and plan: PT to see. Current Visit: Yes Hospitalist: Subjective Interval history: Patient seen. She breathes better and she has been slowly ambulating. PT is yet to see her. Exam - Constitutional Vitals: Period Temp Pulse Resp BP Sys/Garcia Pulse Ox Last 24 Hr 98.0 F-98.8 F 60-66 16-20 135-150/52-73 94-98 General appearance: no acute distress - Respiratory Respiratory exam: Present: decreased breath sounds - Cardiovascular Cardiovascular exam: Present: regular rate and rhythm - GI/Abdominal GI/Abdominal exam: Present: normal bowel sounds - Extremities Exam Extremities exam: Present: normal inspection - Neurological Exam Neurological exam: Present: alert, oriented X3 Results - Labs CBC & BMP: 12/22/16 04:32 12/22/16 04:32 Lab Results: I have reviewed the past 24 hour labs
[2016-12-24] MEDS: ENOXAPARIN 30 MG/0.3 ML SYRINGE SUBCUT SCH ×2 (17:26→17:33)
[2016-12-24] MEDS: ALLOPURINOL 300 MG TABLET PO SCH (20:31)
[2016-12-24] MEDS: SIMVASTATIN 40 MG TABLET PO SCH (20:31)
[2016-12-25 05:46] LABS: Basophils % 0.2 % (0.0-0.8); Eosinophils # 0.1 10*3/uL (0.0-0.87); Hematocrit 26.7 VOL% (35.7-47.0); Hemoglobin 8.2 GM/DL (12.0-16.0); Immature Granulocytes % 1.2 %; Immature Granulocytes Absolute 0.06 #; Lymphocytes # 1.8 10*3/uL (1.4-4.0); Lymphocytes % 36.1 % (21.3-54.2); Mean Corpuscular HGB Conc 30.7 GM/DL (32-36); Mean Corpuscular Hemoglobin 29 PG (27-34); Mean Corpuscular Volume 93.4 FL (87-102); Mean Platelet Volume 11.3 FL (9.6-12.0); Monocytes # 0.6 10*3/uL (0.11-0.8); Neutrophils # 2.3 10*3/uL (1.4-7.4); Neutrophils % 47.5 % (38.7-73.9); Platelet Count 114 T/CUMM (130-400); Red Blood Count 2.86 MC/CUMM (3.8-5.5); Red Cell Distribution Width 17.1 % (9.3-17.3); White Blood Count 4.9 T/CUMM (4-12)
[2016-12-25 06:10] LABS: Calcium 7.8 MG/DL (8.5-10.1); Osmolality,Calculated 300.1 MOS/KG (273-304); Potassium 3.7 MMOL/L (3.5-5.1)
[2016-12-25] MEDS: LEVOTHYROXINE 125 MCG TABLET PO SCH (07:09)
--- NOTE | 2016-12-25 07:32 | XRay Report ---
Portable chest Date: 12/25/2016 Clinical history: Follow-up pleural effusion Comparison: 12/22/2016 Technique: Portable AP sitting chest Findings: The heart is minimally smaller in size with arterial calcifications. Insertion of right IJ CVP line with tip in right atrium. Skinfolds limit the exam. Progressive parenchymal findings at the lung bases with minimally larger pleural effusions. Stable mediastinum and osseous structures. Impression: CVP line with tip in right atrium. Skinfolds limit the exam. Minimally progressive atelectasis/infiltration/edema at the lung bases with minimally larger small pleural effusions. PROCEDURE INTERPRETED AT [facility] DEPARTMENT OF RADIOLOGY Final Report Signed by: Dr. Winsome Jones
[2016-12-25] MEDS: FENOFIBRATE 160 MG TABLET PO SCH (09:20)
[2016-12-25] MEDS: FUROSEMIDE 40 MG/4 ML VIAL IV SCH ×2 (09:20→15:40)
[2016-12-25] MEDS: GABAPENTIN 300 MG CAPSULE PO SCH (09:20)
[2016-12-25] MEDS: amLODIPine 2.5 MG TABLET PO SCH (09:20)
[2016-12-25] MEDS: PANTOPRAZOLE 40 MG TABLET PO SCH (09:20)
[2016-12-25] MEDS: ASCORBIC ACID 500 MG TABLET PO SCH (09:20)
[2016-12-25] MEDS: METOPROLOL TARTRATE 100 MG TABLET PO SCH ×2 (09:20→21:06)
[2016-12-25] MEDS: CITALOPRAM 20 MG TABLET PO SCH (09:20)
[2016-12-25] MEDS: CETIRIZINE 10 MG TABLET PO SCH (09:21)
[2016-12-25] MEDS ORDERED: TUBERCULIN SKIN TEST 0.1 ML SYRINGE INTRADERM ONE (09:38)
--- NOTE | 2016-12-25 10:35 | Hospitalist Progress Note ---
Assessment and Plan (1) Volume overload Status: Acute Assessment and plan: with moderate size left sided pleural effusion.S/p thoracocentesis. She had about 700 cc of pleural fluid. She breathes better but complained of a swollen thigh bilaterally, CLEM stockings had squeezed the fluid from the lower legs to the thighs Plan continue with IV diuretics, extend CLEM stockings to the thigh. Encourage ambulation Current Visit: Yes (2) Chronic kidney disease, stage IV (severe) Status: Chronic Assessment and plan: Nephrology is seeing, follow recommendations. Current Visit: No (3) Anemia Status: Chronic Assessment and plan: most likely due to CRF. Follow cbc. Nephrology to advise on Epogen? Current Visit: No Qualifiers: Chronic kidney disease stage: stage 5, not on chronic dialysis (4) Hypertension Status: Chronic Assessment and plan: stable Current Visit: No Qualifiers: Hypertension type: essential hypertension Qualified Code(s): I10 - Essential (primary) hypertension (5) Pulmonary hypertension Status: Chronic Assessment and plan: with mild aortic valve sclerosis without stenosis, and mild tricuspid valve regurgitation. Plan continue with Norvasc and other regime Current Visit: No (6) Hypothyroidism Status: Chronic Assessment and plan: continue with supplements Current Visit: Yes (7) Dyslipidemia Status: Chronic Assessment and plan: continue with statins Current Visit: Yes (8) Pleural effusion Status: Acute Assessment and plan: moderate sized left pleural effusion. -s/p thoracocentesis,pleural studies noted. Cultures negative so far.Continue with IV Lasix -no clinical evidence of infection, will not need antibiotics Current Visit: No (9) Atrial fibrillation Status: Resolved Assessment and plan: with controlled rate- ?Newonset-most likely paraxysmal -Cardiac enzymes are negative,Cardiology saw and they reviewed the EKG and the telemetry monitoring shows patient is in normal sinus rhythm with very rare PAC. No atrial fibrillation appreciated. Current Visit: Yes (10) Debility Status: Acute Assessment and plan: PT to see.Family open to swing bed disposition. accounting manager assistant controller is working on it. Current Visit: Yes Hospitalist: Subjective Interval history: Patient seen this am. She was in a good spirit. She complained of swollen thigh bilaterally, CLEM stockings had squeezed the fluid from the lower legs to the thighs.Family is open to a swing bed disposition. Exam - Constitutional Vitals: Period Temp Pulse Resp BP Sys/Garcia Pulse Ox Last 24 Hr 97.3 F-98.3 F 52-62 16-20 121-140/48-62 95-100 General appearance: no acute distress - Respiratory Respiratory exam: Present: clear to auscultation bilaterally - Cardiovascular Cardiovascular exam: Present: regular rate and rhythm - GI/Abdominal GI/Abdominal exam: Present: normal bowel sounds - Extremities Exam Extremities exam: Present: other (edema of both thighs) - Neurological Exam Neurological exam: Present: alert, oriented X3 Results - Labs CBC & BMP: 12/25/16 04:40 12/25/16 04:40 Lab Results: I have reviewed the past 24 hour labs
--- NOTE | 2016-12-25 11:18 | Pathology Report from [facility] ---
[facility] [place] [facility] [place]ESSION # : [id number] PATIENT NAME : Karin Haas ORDERING DR : ORIN ACEVEDO MD CLINICAL HX: Left Pleural Effusion POST-OP DX: Same SPECIMEN INFO: Fluid,Pleural,Left - 800 mls yellow, hazy CLASS: II CLASS COMMENTS: Acute inflammation, blood, reactive mesothelial cells, proteinaceous material.CELL BLOCK: Same CLASS LEGEND: CLASS 0 Material inadequate for diagnosis because of (see comment) CLASS I Absence of atypical or abnormal cells CLASS II Atypical Cytology but no evidence of malignancy CLASS III Cytology suggestive of but not conclusive for malignancy CLASS IV Cytology strongly suggestive of malignancy CLASS V Cytology conclusive for malignancy COLLECTED DATE: 12/22/2016 [facility] REPORT DATE: 12/25/2016 ELECTRONICALLY SIGNED BY: Kamila Oquendo III, M.D. 12/25/2016 - 9:19:50 MTDBrandyn
--- NOTE | 2016-12-25 11:25 | Case Mgmt Physician Query Form ---
TB Signs and Symptoms Screening ([place]) INSTRUCTIONS: To be completed annually on residents/staff with a significant Tuberculin Skin Test (TST) upon admission/hire or a prior significant TST. To be completed on all staff at hire. Please respond to each listed symptom with an (X) in either the "YES" or "NO" box. Do you currently have any of the following symptoms: YES NO ( ) ( x) A cough If yes, is it: ( ) Productive ( ) Non- productive ( ) (x ) Hemoptysis (spitting up blood) ( ) (x ) Chest pains ( ) ( x) Weight Loss ( ) (x ) Fever ( ) ( x) Night Sweats ( ) (x ) Weakness ( ) (x ) Loss of Appetite ( ) (x ) Difficulty Breathing If you answered YES" to any of the above questions, how long have symptoms been present? Comments: If you have any questions, please contact me . Thank you, Reta MUHAMMAD Email: [email or web address]
[2016-12-25] MEDS: ONDANSETRON 4 MG/2 ML VIAL IV PRN (13:05)
[2016-12-25] MEDS: ENOXAPARIN 30 MG/0.3 ML SYRINGE SUBCUT SCH (18:15)
[2016-12-25] MEDS: ALLOPURINOL 300 MG TABLET PO SCH (21:05)
[2016-12-25] MEDS: SIMVASTATIN 40 MG TABLET PO SCH (21:06)
[2016-12-26] MEDS: FUROSEMIDE 40 MG/4 ML VIAL IV SCH (08:38)
[2016-12-26] MEDS: GABAPENTIN 300 MG CAPSULE PO SCH (08:38)
[2016-12-26] MEDS: ASCORBIC ACID 500 MG TABLET PO SCH (08:38)
[2016-12-26] MEDS: amLODIPine 2.5 MG TABLET PO SCH (08:38)
[2016-12-26] MEDS: FENOFIBRATE 160 MG TABLET PO SCH (08:38)
[2016-12-26] MEDS: LEVOTHYROXINE 125 MCG TABLET PO SCH (08:38)
[2016-12-26] MEDS: CITALOPRAM 20 MG TABLET PO SCH (08:38)
[2016-12-26] MEDS: PANTOPRAZOLE 40 MG TABLET PO SCH (08:38)
[2016-12-26] MEDS: METOPROLOL TARTRATE 100 MG TABLET PO SCH (08:38)
[2016-12-26] MEDS: CETIRIZINE 10 MG TABLET PO SCH (08:38)
--- NOTE | 2016-12-26 09:24 | Discharge Summary ---
<Esme Walsh - Last Filed: 12/26/16 08:54> Hospital Course - Hospital Course Hospital Course: Ms. Haas is a 86 year old white female with a past medical history of hypertension, hyperlipidemia, chronic renal insufficiency that was a direct admit from Dr. Turner's office on 12/20 for worsening pleural effusions, frequent falls, and weakness. The patient had just been recently hospitalized on 12/06 - 12/15 with edema and a pleural effusion. During that admission she was seen by Dr. Vieira (pulmonary) and Dr. Soria (nephrology). Pt. also underwent a thoracentesis at that time and was released. Pt. resides with her granddaughter and there were reports of slight improvement after discharge but then patient's condition regressed. CXR revealed cardiomegaly with a mild to moderate left pleural effusion. Pt. was admitted and treated. Pulmonary and nephrology were both consulted to see patient. Pt. was diuresed with IV lasix. There was no evidence of infection noted so there was no treatment with antibiotics. Thoracentesis was performed with pleural fluid stuides and had 700 cc removed. On 12/21 pt. went into what staff identified as afib at a controlled rate. Cardiology was consulted to see. They reviewed EKG and telemetry monitoring and did not appreciate afib but identified 'SR with PACs' . Nephrology evaluated patient for her chronic kidney disease. Pt. had an elevated creatinine (around 4.6) which was higher than patient's usual baseline. [employer] Stud[employer] suggested that this could becoming the patient's new baseline. Pt. was monitored while here. Family agreed that the patient should be placed in a swingbed facility and arrangements have been made for patient. Pt.'s breathing has improved. Labs and vitals are stable and patient can be released.Family states Nephrology told them she will need an access placed for possible dialysis soon.Patient was seen this am sitting up on a chair, vitals were stable and she is ready to be dcd. Discharge Plan - Discharge Data Disposition: Swing Bed, Hos Based, [facility] - Discharge Medications New Furosemide Tab [Lasix Tab] 20 mg PO BID DIURETIC #60 tablet guaiFENesin/DM ER 600-30 [Mucinex Dm 600-30 MG] 1 tablet PO BID PRN tablet PRN Reason: Congestion Continue Omeprazole 20 mg PO BID Levothyroxine Tab [Synthroid Tab] 125 mcg PO DAILY@0700 Amlodipine Besylate 7.5 mg PO DAILY cloNIDine TAB [Catapres Tab] 0.3 mg PO DAILY Ondansetron Tab [Zofran Tab] 4 mg PO Q8HR PRN PRN Reason: Nausea/Vomiting Torsemide 5 mg PO DAILY Simvastatin 40 mg PO BEDTIME Fenofibrate 160 mg PO DAILY W/BREAKFAST Allopurinol 150 mg PO DAILY Ascorbic Acid [Vitamin C] 500 mg PO DAILY Metoprolol Tartrate 100 mg PO BID Gabapentin 300 mg PO DAILY Citalopram [CeleXA] 20 mg PO DAILY Cetirizine Tab [ZyrTEC Tab] 10 mg PO DAILY - Follow Up or Referral - Forms/Instructions Exam - Constitutional Vitals: Period Temp Pulse Resp BP Sys/Garcia Pulse Ox Last 24 Hr 97.3 F-98.4 F 56-61 16-20 112-158/52-63 96-99 Discharge Results Procedures and tests throughout hospitalization: Pending Orders 12/21/16 AFB Culture/Smears Routine Fungal Culture w/ Prep Routine 12/21/16 09:11 Cytology Request Routine Labs on day of discharge: Preliminary micro results at discharge 12/21/16 Unknown Mycobacterial Culture - Preliminary Pleural Fluid No AFB isolated at 1 week DS: Provider Date of admission: 12/20/16 18:24 Primary care physician: . No PCP Attending physician on admission: Marky Pinzon MD Consults: 12/20/16 18:24 Consult to Physician [CONS] Routine Comment: pt of yours adm w fluid overload, sob Consulting Provider: Adama Sprague When should Consulting Provider be notified: In am Person Notified: edita Date Notified: 12/21/16 Time Notified: 15:36 Consult Notification Comment: Consult to Physician [CONS] Routine Comment: pt of yours adm w fluid overload, sob Consulting Provider: Sammy Vieira When should Consulting Provider be notified: In am 12/20/16 18:30 Consult to Occupational Therapy [CONS] Routine Reason for Occupational Therapy: Evaluate and Treat Consult to Physical Therapy [CONS] Routine Reason for Physical Therapy: Evaluate and Treat 12/21/16 09:09 Consult to Physician [CONS] Routine Comment: new onset of afib Consulting Provider: Jose English Consult to Specialist Group: Cardiology Person Notified: MICHELLE Date Notified: 12/21/16 Time Notified: 09:13 12/24/16 12:54 Consult to Case Mgmt/Social Srvs [CONS] Routine Reason for Case Mgmt/Social Srvs: Home Health Consult Comment: home lakshmi with physical therapy. 12/25/16 08:50 Consult to Case Mgmt/Social Srvs [CONS] Routine Reason for Case Mgmt/Social Srvs: Swingbed/SNF/Care Home Discharging clinician: Esme Walsh NP <Nimisha Grewal - Last Filed: 12/26/16 11:20> Hospital Course - Time spent with patient Time with patient DS: Greater than 30 minutes (Time spent >35mins) Diagnosis - Discharge Diagnosis (1) Volume overload Status: Acute (2) Chronic kidney disease, stage IV (severe) Status: Chronic (3) Anemia Status: Chronic (4) Hypertension Status: Chronic (5) Pulmonary hypertension Status: Chronic (6) Hypothyroidism Status: Chronic (7) Dyslipidemia Status: Chronic (8) Pleural effusion Status: Acute (9) Atrial fibrillation Status: Resolved (10) Debility Status: Acute Discharge Plan - Discharge Data Condition at Discharge: Stable Discharge Diet: other (renal diet) Activity: resume usual activities as tolerated - Forms/Instructions Additional Discharge Instructions: Follow with PCP in 1week, follow with Nephrology as scheduled
[2016-12-26 11:32] VITALS: BP 136/63
[2016-12-26] MEDS: ONDANSETRON 4 MG/2 ML VIAL IV PRN (12:34)
--- NOTE | 2016-12-26 22:01 | Nephrology Progress Note ---
Nephrology - PN: Subj Interval history: This is a late entry note for 12/25/16 She is awake and alert. She denies shortness of breath. She has had mild nausea. Exam (PN)-Nephrology - Vital Signs Vital signs: Period Temp Pulse Resp BP Sys/Garcia Pulse Ox Last 24 Hr 97.3 F-97.8 F 56-60 18-20 112-136/52-63 96-99 Exam: ENT: Normal Cardiovascular: Regular rate and rhythm. No murmur rub or gallop Lungs: Clear Extremities: No edema - Lab 12/25/16 04:40 12/25/16 04:40 Most recent lab results Calcium 7.8 MG/DL (8.5-10.1) L 12/25/16 04:40 Magnesium 2.0 MG/DL (1.8-2.4) 12/21/16 08:51 Assessment and Plan (1) CKD (chronic kidney disease) stage 5, GFR less than 15 ml/min Status: Chronic Assessment and plan: 86-year-old woman with: * CRF stage V. I discussed hemodialysis and peritoneal dialysis with the patient and her family in detail. She is interested in pursuing PD. Education nurse will see her today. Access plans will be made thereafter. * Pleural effusion * Hypertension * Debility. She is to be discharged to swing bed (2) Debility Status: Acute (3) Pleural effusion Status: Acute (4) Hypertension Status: Chronic Qualifiers: Hypertension type: essential hypertension Qualified Code(s): I10 - Essential (primary) hypertension (5) Hypothyroidism Status: Chronic (6) Pulmonary hypertension Status: Chronic Specialty Discharge - Follow Up or Referrals
--- NOTE | 2016-12-26 22:04 | Nephrology Progress Note ---
Nephrology - PN: Subj Interval history: No new symptoms. Exam (PN)-Nephrology - Vital Signs Vital signs: Period Temp Pulse Resp BP Sys/Garcia Pulse Ox Last 24 Hr 97.3 F-97.8 F 56-60 18-20 112-136/52-63 96-99 Exam: ENT: Normal Cardiovascular: Regular rate and rhythm. No murmur rub or gallop Lungs: Clear Extremities: No edema - Lab 12/25/16 04:40 12/25/16 04:40 Most recent lab results Calcium 7.8 MG/DL (8.5-10.1) L 12/25/16 04:40 Magnesium 2.0 MG/DL (1.8-2.4) 12/21/16 08:51 Assessment and Plan (1) CKD (chronic kidney disease) stage 5, GFR less than 15 ml/min Status: Chronic Assessment and plan: 86-year-old woman with: * CRF stage V. She has decided on peritoneal dialysis. PD catheter will be scheduled after her swing bed stay. * Pleural effusion * Hypertension * Debility. She is to be discharged to swing bed (2) Debility Status: Acute (3) Pleural effusion Status: Acute (4) Hypertension Status: Chronic Qualifiers: Hypertension type: essential hypertension Qualified Code(s): I10 - Essential (primary) hypertension (5) Hypothyroidism Status: Chronic (6) Pulmonary hypertension Status: Chronic Specialty Discharge - Follow Up or Referrals
== END 2016-12-26 14:15 | DRG 292 ==
LOC: N.5E → SUATTDRO 18:24
PROVIDERS: ADMIT Internal Medicine Infectious Disease; ATTEND Internal Medicine
PROC: IRTHORA (2016-12-21 13:32)

== ENCOUNTER 2017-06-06 10:38 | Inpatient (IN) ==
[2017-06-06] MEDS ORDERED: SODIUM CHLORIDE 0.9% 500 ML IV STA (11:01)
[2017-06-06] MEDS ORDERED: ONDANSETRON 4 MG/2 ML VIAL IV STA (11:01)
[2017-06-06] MEDS ORDERED: ONDANSETRON 4 MG/2 ML VIAL ONE (11:10)
[2017-06-06 11:28] LABS: Basophils # 0.1 10*3/uL (0.0-0.2); Basophils % 0.3 % (0.0-0.8); Eosinophils % 0.2 % (0.00-10.9); Hematocrit 38.4 VOL% (35.7-47.0); Hemoglobin 12.3 GM/DL (12.0-16.0); Immature Granulocytes % 1.9 %; Immature Granulocytes Absolute 0.37 #; Lymphocytes # 2.2 10*3/uL (1.4-4.0); Lymphocytes % 11.2 % (21.3-54.2); Mean Corpuscular Hemoglobin 31 PG (27-34); Mean Corpuscular Volume 97.5 FL (87-102); Mean Platelet Volume 11.5 FL (9.6-12.0); Monocytes # 1.9 10*3/uL (0.11-0.8); Monocytes % 9.9 % (1.7-12.7); NRBC # 0.03 10*3/uL; Neutrophils # 14.7 10*3/uL (1.4-7.4); Neutrophils % 76.5 % (38.7-73.9); Platelet Count 190 T/CUMM (130-400); Red Blood Count 3.94 MC/CUMM (3.8-5.5); Red Cell Distribution Width 15.4 % (9.3-17.3); White Blood Count 19.3 T/CUMM (4-12)
[2017-06-06 11:51] LABS: Albumin 1.9 G/DL (3.4-5.0); Bilirubin,Total 0.5 MG/DL (0.2-1.0); Calcium 8.4 MG/DL (8.5-10.1); Osmolality,Calculated 271.2 MOS/KG (273-304); Potassium 2.9 MMOL/L (3.5-5.1); Total Protein 5.5 G/DL (6.4-8.3)
[2017-06-06] MEDS ORDERED: MORPHINE 2 MG/1 ML SYRINGE IV PRN (13:43)
[2017-06-06] MEDS ORDERED: PROMETHAZINE 25 MG/1 ML VIAL IM PRN (13:43)
[2017-06-06] MEDS ORDERED: ACETAMINOPHEN 325 MG TABLET PO PRN (13:43)
[2017-06-06] MEDS ORDERED: SODIUM CHLORIDE 0.9% 500 ML IV ONE (13:43)
[2017-06-06] MEDS ORDERED: guaiFENesin/DM ER 600-30 MG TABLET PO PRN (13:43)
[2017-06-06] MEDS ORDERED: PANTOPRAZOLE 40 MG TABLET PO SCH (14:00)
[2017-06-06 14:21] LABS: Risk Ratio 3.14; Thyroid Stimulating Hormone 7.73 uIU/ml (0.358-3.74)
[2017-06-06] MEDS: ENOXAPARIN 30 MG/0.3 ML SYRINGE SUBCUT SCH (15:50)
[2017-06-06] MEDS: PANTOPRAZOLE 40 MG TABLET PO SCH ×2 (15:50→21:03)
[2017-06-06] MEDS: DOCUSATE SODIUM 100 MG CAPSULE PO SCH ×2 (15:50→21:03)
[2017-06-06] MEDS: SODIUM CHLORIDE 0.9% 1,000 ML IV SCH (18:27)
[2017-06-07] MEDS: SODIUM CHLORIDE 0.9% 1,000 ML IV SCH ×2 (02:03→10:22)
[2017-06-07] MEDS: LEVOTHYROXINE 125 MCG TABLET PO SCH (05:56)
[2017-06-07 06:45] LABS: Basophils # 0.1 10*3/uL (0.0-0.2); Basophils % 0.4 % (0.0-0.8); Eosinophils # 0.3 10*3/uL (0.0-0.87); Eosinophils % 2.3 % (0.00-10.9); Hematocrit 35.2 VOL% (35.7-47.0); Hemoglobin 11.5 GM/DL (12.0-16.0); Immature Granulocytes Absolute 0.14 #; Lymphocytes # 4.5 10*3/uL (1.4-4.0); Lymphocytes % 32.1 % (21.3-54.2); Mean Corpuscular HGB Conc 32.7 GM/DL (32-36); Mean Corpuscular Hemoglobin 32 PG (27-34); Mean Corpuscular Volume 96.4 FL (87-102); Mean Platelet Volume 11.7 FL (9.6-12.0); Monocytes # 1.7 10*3/uL (0.11-0.8); Monocytes % 12.3 % (1.7-12.7); Neutrophils # 7.3 10*3/uL (1.4-7.4); Neutrophils % 51.9 % (38.7-73.9); Platelet Count 190 T/CUMM (130-400); Red Blood Count 3.65 MC/CUMM (3.8-5.5)
[2017-06-07 07:12] LABS: Calcium 8.3 MG/DL (8.5-10.1); Magnesium 1.3 MG/DL (1.8-2.4); Osmolality,Calculated 272.1 MOS/KG (273-304); Potassium 2.7 MMOL/L (3.5-5.1)
[2017-06-07] MEDS: PANTOPRAZOLE 40 MG TABLET PO SCH ×2 (08:00→22:34)
[2017-06-07] MEDS: DOCUSATE SODIUM 100 MG CAPSULE PO SCH ×2 (08:00→22:34)
[2017-06-07] MEDS ORDERED: POTASSIUM CHLORIDE 8 MEQ CAPSULE PO SCH (09:00)
[2017-06-07] MEDS: POTASSIUM CHLORIDE RIDER 10 MEQ in PREMIX 1 EACH IV PRN (10:45)
[2017-06-07] MEDS: POTASSIUM CHLORIDE RIDER 20 MEQ in PREMIX 1 EACH IV PRN ×2 (12:00→14:53)
[2017-06-07] MEDS: ENOXAPARIN 30 MG/0.3 ML SYRINGE SUBCUT SCH (13:18)
[2017-06-07] MEDS ORDERED: MAGNESIUM SULF RIDER 1 GM in PREMIX 1 EACH IV ONE (14:42)
[2017-06-08] MEDS: POTASSIUM CHLORIDE 20 MEQ/10 ML VIAL INTRAPERIT SCH ×3 (00:31→15:07)
[2017-06-08] MEDS: SODIUM CHLORIDE 0.9% 1,000 ML IV SCH ×3 (03:34→21:26)
[2017-06-08 04:35] LABS: Basophils % 0.4 % (0.0-0.8); Eosinophils # 0.3 10*3/uL (0.0-0.87); Hematocrit 32.8 VOL% (35.7-47.0); Hemoglobin 10.4 GM/DL (12.0-16.0); Lymphocytes # 3.2 10*3/uL (1.4-4.0); Lymphocytes % 30.1 % (21.3-54.2); Mean Corpuscular HGB Conc 31.7 GM/DL (32-36); Mean Corpuscular Hemoglobin 31 PG (27-34); Mean Corpuscular Volume 98.2 FL (87-102); Monocytes # 1.4 10*3/uL (0.11-0.8); Monocytes % 13.3 % (1.7-12.7); Neutrophils # 5.5 10*3/uL (1.4-7.4); Neutrophils % 52.2 % (38.7-73.9); Platelet Count 167 T/CUMM (130-400); Red Blood Count 3.34 MC/CUMM (3.8-5.5); Red Cell Distribution Width 15.4 % (9.3-17.3); White Blood Count 10.5 T/CUMM (4-12)
[2017-06-08 05:33] LABS: Albumin 1.7 G/DL (3.4-5.0); Bilirubin,Total 0.7 MG/DL (0.2-1.0); Calcium 7.9 MG/DL (8.5-10.1); Osmolality,Calculated 277.7 MOS/KG (273-304); Potassium 3.1 MMOL/L (3.5-5.1); Total Protein 4.2 G/DL (6.4-8.3)
[2017-06-08] MEDS: LEVOTHYROXINE 125 MCG TABLET PO SCH (07:18)
[2017-06-08] MEDS ORDERED: PHENYLEPHRINE 1 MG/10 ML SYRINGE IV ONE (09:00)
[2017-06-08] MEDS ORDERED: LABETALOL 100 MG/20 ML VIAL IV ONE (09:00)
[2017-06-08] MEDS ORDERED: PROPOFOL 200 MG/20 ML VIAL IV ONE ×2 (09:00→14:41)
[2017-06-08] MEDS ORDERED: LIDOCAINE 2% 5 ML VIAL ONE (09:00)
[2017-06-08] MEDS: POTASSIUM CHLORIDE RIDER 20 MEQ in PREMIX 1 EACH IV PRN ×2 (09:06→11:14)
[2017-06-08] MEDS: DOCUSATE SODIUM 100 MG CAPSULE PO SCH ×2 (10:11→21:25)
[2017-06-08] MEDS: PANTOPRAZOLE 40 MG TABLET PO SCH ×2 (10:11→21:25)
[2017-06-08] MEDS ORDERED: MAGNESIUM SULF RIDER 1 GM in PREMIX 1 EACH IV ONE (10:48)
[2017-06-08] MEDS: ENOXAPARIN 30 MG/0.3 ML SYRINGE SUBCUT SCH (15:22)
[2017-06-09] MEDS: LEVOTHYROXINE 125 MCG TABLET PO SCH (06:50)
[2017-06-09] MEDS: SODIUM CHLORIDE 0.9% 1,000 ML IV SCH ×3 (08:16→17:40)
[2017-06-09] MEDS: ONDANSETRON 4 MG/2 ML VIAL IV PRN ×2 (09:28→18:07)
[2017-06-09] MEDS: PANTOPRAZOLE 40 MG TABLET PO SCH ×2 (09:28→20:49)
[2017-06-09] MEDS: DOCUSATE SODIUM 100 MG CAPSULE PO SCH ×2 (09:28→20:49)
[2017-06-09] MEDS: ENOXAPARIN 30 MG/0.3 ML SYRINGE SUBCUT SCH (15:31)
[2017-06-10] MEDS: SODIUM CHLORIDE 0.9% 1,000 ML IV SCH ×3 (04:01→21:29)
[2017-06-10] MEDS: LEVOTHYROXINE 125 MCG TABLET PO SCH (06:19)
[2017-06-10 07:23] LABS: Calcium 8.3 MG/DL (8.5-10.1); Osmolality,Calculated 282.3 MOS/KG (273-304); Potassium 3.2 MMOL/L (3.5-5.1)
[2017-06-10] MEDS: POTASSIUM CHLORIDE RIDER 10 MEQ in PREMIX 1 EACH IV PRN ×3 (08:27→14:39)
[2017-06-10] MEDS: PANTOPRAZOLE 40 MG TABLET PO SCH ×2 (08:27→21:26)
[2017-06-10] MEDS: ONDANSETRON 4 MG/2 ML VIAL IV PRN ×2 (08:34→16:20)
[2017-06-10] MEDS: DOCUSATE SODIUM 100 MG CAPSULE PO SCH ×2 (08:43→21:26)
[2017-06-10] MEDS: POTASSIUM CHLORIDE 20 MEQ/10 ML VIAL INTRAPERIT SCH ×2 (12:00→18:40)
[2017-06-10] MEDS: ENOXAPARIN 30 MG/0.3 ML SYRINGE SUBCUT SCH (14:39)
[2017-06-10] MEDS ORDERED: ZINC OXIDE PASTE 113 GM TUBE TOP PRN (15:07)
[2017-06-10] MEDS ORDERED: DILTIAZEM 50 MG/10 ML VIAL IV ONE (17:23)
[2017-06-10] MEDS: DILTIAZEM INJ 100 MG in SODIUM CHLORIDE 0.9% 100 ML IV SCH (17:35)
[2017-06-10] MEDS: ENOXAPARIN 60 MG/0.6 ML SYRINGE SUBCUT SCH (17:52)
[2017-06-10] MEDS: METOPROLOL TARTRATE 100 MG TABLET PO SCH (18:43)
[2017-06-10 18:44] LABS: Calcium 7.5 MG/DL (8.5-10.1); Magnesium 1.4 MG/DL (1.8-2.4); Osmolality,Calculated 283.3 MOS/KG (273-304); Potassium 3.6 MMOL/L (3.5-5.1)
[2017-06-10 18:55] LABS: Free T4 (Free Thyroxine) 1.17 NG/DL (0.76-1.46); Thyroid Stimulating Hormone 6.95 uIU/ml (0.358-3.74)
[2017-06-10 19:03] LABS: Troponin I Only 0.132 NG/ML (0.00-0.045)
[2017-06-11] MEDS: POTASSIUM CHLORIDE 20 MEQ/10 ML VIAL INTRAPERIT SCH ×4 (00:08→17:08)
[2017-06-11] MEDS: DILTIAZEM INJ 100 MG in SODIUM CHLORIDE 0.9% 100 ML IV SCH (01:53)
[2017-06-11] MEDS: LEVOTHYROXINE 125 MCG TABLET PO SCH (06:24)
[2017-06-11] MEDS: ONDANSETRON 4 MG/2 ML VIAL IV PRN ×3 (07:23→17:06)
[2017-06-11] MEDS: DOCUSATE SODIUM 100 MG CAPSULE PO SCH ×2 (08:39→20:31)
[2017-06-11] MEDS: PANTOPRAZOLE 40 MG TABLET PO SCH ×2 (08:39→20:30)
[2017-06-11] MEDS: SODIUM CHLORIDE 0.9% 1,000 ML IV SCH (11:12)
[2017-06-11] MEDS: METOPROLOL TARTRATE 100 MG TABLET PO SCH ×2 (11:30→17:24)
[2017-06-11] MEDS: ENOXAPARIN 60 MG/0.6 ML SYRINGE SUBCUT SCH (16:46)
[2017-06-12] MEDS: DILTIAZEM INJ 100 MG in SODIUM CHLORIDE 0.9% 100 ML IV SCH ×2 (00:08→18:34)
[2017-06-12] MEDS: POTASSIUM CHLORIDE 20 MEQ/10 ML VIAL INTRAPERIT SCH ×5 (00:09→23:54)
[2017-06-12] MEDS: SODIUM CHLORIDE 0.9% 1,000 ML IV SCH ×2 (00:29→14:06)
[2017-06-12 06:05] LABS: Basophils # 0.1 10*3/uL (0.0-0.2); Basophils % 0.7 % (0.0-0.8); Eosinophils # 0.4 10*3/uL (0.0-0.87); Eosinophils % 5.9 % (0.00-10.9); Hematocrit 30.8 VOL% (35.7-47.0); Hemoglobin 9.8 GM/DL (12.0-16.0); Immature Granulocytes % 0.6 %; Immature Granulocytes Absolute 0.04 #; Lymphocytes # 2.9 10*3/uL (1.4-4.0); Lymphocytes % 40.4 % (21.3-54.2); Mean Corpuscular HGB Conc 31.8 GM/DL (32-36); Mean Corpuscular Hemoglobin 32 PG (27-34); Mean Corpuscular Volume 100.7 FL (87-102); Mean Platelet Volume 10.8 FL (9.6-12.0); Monocytes # 0.7 10*3/uL (0.11-0.8); Monocytes % 10.1 % (1.7-12.7); Neutrophils # 3.1 10*3/uL (1.4-7.4); Neutrophils % 42.3 % (38.7-73.9); Platelet Count 145 T/CUMM (130-400); Red Blood Count 3.06 MC/CUMM (3.8-5.5); Red Cell Distribution Width 15.2 % (9.3-17.3); White Blood Count 7.3 T/CUMM (4-12)
[2017-06-12] MEDS: LEVOTHYROXINE 125 MCG TABLET PO SCH (06:13)
[2017-06-12 06:38] LABS: Albumin 1.6 G/DL (3.4-5.0); Bilirubin,Total 0.4 MG/DL (0.2-1.0); Potassium 3.6 MMOL/L (3.5-5.1); Total Protein 3.7 G/DL (6.4-8.3)
[2017-06-12] MEDS: ONDANSETRON 4 MG/2 ML VIAL IV PRN ×3 (07:59→18:38)
[2017-06-12] MEDS: DOCUSATE SODIUM 100 MG CAPSULE PO SCH ×2 (12:54→20:19)
[2017-06-12] MEDS: PANTOPRAZOLE 40 MG TABLET PO SCH ×2 (12:54→20:19)
[2017-06-12] MEDS: METOPROLOL TARTRATE 100 MG TABLET PO SCH ×2 (12:54→18:37)
[2017-06-12] MEDS: ENOXAPARIN 60 MG/0.6 ML SYRINGE SUBCUT SCH (17:18)
[2017-06-13] MEDS: SODIUM CHLORIDE 0.9% 1,000 ML IV SCH (01:56)
[2017-06-13] MEDS: POTASSIUM CHLORIDE 20 MEQ/10 ML VIAL INTRAPERIT SCH ×3 (05:32→18:37)
[2017-06-13 06:17] LABS: Basophils % 0.6 % (0.0-0.8); Eosinophils # 0.4 10*3/uL (0.0-0.87); Eosinophils % 4.8 % (0.00-10.9); Hematocrit 30.7 VOL% (35.7-47.0); Hemoglobin 9.7 GM/DL (12.0-16.0); Immature Granulocytes % 0.6 %; Immature Granulocytes Absolute 0.04 #; Lymphocytes # 2.9 10*3/uL (1.4-4.0); Lymphocytes % 39.9 % (21.3-54.2); Mean Corpuscular HGB Conc 31.6 GM/DL (32-36); Mean Corpuscular Hemoglobin 32 PG (27-34); Mean Platelet Volume 12.1 FL (9.6-12.0); Monocytes # 0.8 10*3/uL (0.11-0.8); Monocytes % 11.1 % (1.7-12.7); Neutrophils # 3.1 10*3/uL (1.4-7.4); Platelet Count 154 T/CUMM (130-400); Red Blood Count 3.07 MC/CUMM (3.8-5.5); White Blood Count 7.3 T/CUMM (4-12)
[2017-06-13 06:53] LABS: Albumin 1.6 G/DL (3.4-5.0); Bilirubin,Total 0.5 MG/DL (0.2-1.0); Osmolality,Calculated 286.8 MOS/KG (273-304); Potassium 3.5 MMOL/L (3.5-5.1); Total Protein 3.8 G/DL (6.4-8.3)
[2017-06-13] MEDS: DOCUSATE SODIUM 100 MG CAPSULE PO SCH ×3 (09:37→21:52)
[2017-06-13] MEDS: LEVOTHYROXINE 125 MCG TABLET PO SCH (09:37)
[2017-06-13] MEDS: PANTOPRAZOLE 40 MG TABLET PO SCH ×2 (09:37→21:52)
[2017-06-13] MEDS: ONDANSETRON 4 MG/2 ML VIAL IV PRN (09:43)
[2017-06-13] MEDS: METOCLOPRAMIDE 10 MG/2 ML VIAL IV SCH ×2 (13:32→18:31)
[2017-06-13] MEDS: METOPROLOL TARTRATE 100 MG TABLET PO SCH ×2 (13:37→18:31)
[2017-06-13] MEDS: DILTIAZEM INJ 100 MG in SODIUM CHLORIDE 0.9% 100 ML IV SCH (17:50)
[2017-06-13] MEDS: ENOXAPARIN 60 MG/0.6 ML SYRINGE SUBCUT SCH (18:31)
[2017-06-14] MEDS: METOCLOPRAMIDE 10 MG/2 ML VIAL IV SCH ×4 (00:08→17:17)
[2017-06-14] MEDS: POTASSIUM CHLORIDE 20 MEQ/10 ML VIAL INTRAPERIT SCH ×4 (00:09→17:27)
[2017-06-14] MEDS: LEVOTHYROXINE 125 MCG TABLET PO SCH (06:27)
[2017-06-14] MEDS: DOCUSATE SODIUM 100 MG CAPSULE PO SCH ×2 (08:45→21:27)
[2017-06-14] MEDS: PANTOPRAZOLE 40 MG TABLET PO SCH ×2 (08:47→21:26)
[2017-06-14] MEDS: ONDANSETRON 4 MG/2 ML VIAL IV PRN ×2 (08:53→17:14)
[2017-06-14 09:42] LABS: Albumin 1.7 G/DL (3.4-5.0); Bilirubin,Total 0.6 MG/DL (0.2-1.0); Osmolality,Calculated 285.1 MOS/KG (273-304); Potassium 3.6 MMOL/L (3.5-5.1); Total Protein 4.2 G/DL (6.4-8.3)
[2017-06-14] MEDS ORDERED: ENOXAPARIN 30 MG/0.3 ML SYRINGE SUBCUT SCH (10:30)
[2017-06-14] MEDS: METOPROLOL TARTRATE 100 MG TABLET PO SCH ×2 (11:37→17:14)
[2017-06-14] MEDS: POTASSIUM CHLORIDE 20 MEQ TABLET PO PRN ×2 (12:03→17:14)
[2017-06-14] MEDS ORDERED: APIXABAN 2.5 MG TABLET PO SCH (21:00)
[2017-06-15] MEDS: POTASSIUM CHLORIDE 20 MEQ/10 ML VIAL INTRAPERIT SCH ×5 (00:40→23:50)
[2017-06-15] MEDS: METOCLOPRAMIDE 10 MG/2 ML VIAL IV SCH ×5 (01:36→23:48)
[2017-06-15] MEDS: LEVOTHYROXINE 125 MCG TABLET PO SCH (06:41)
[2017-06-15] MEDS: DOCUSATE SODIUM 100 MG CAPSULE PO SCH ×2 (08:14→20:40)
[2017-06-15] MEDS: PANTOPRAZOLE 40 MG TABLET PO SCH ×2 (08:56→20:40)
[2017-06-15] MEDS: METOPROLOL TARTRATE 100 MG TABLET PO SCH ×2 (11:58→18:34)
[2017-06-15] MEDS: ENOXAPARIN 30 MG/0.3 ML SYRINGE SUBCUT SCH (11:59)
[2017-06-16 05:02] LABS: Basophils % 0.5 % (0.0-0.8); Eosinophils # 0.1 10*3/uL (0.0-0.87); Eosinophils % 2.4 % (0.00-10.9); Hematocrit 31.7 VOL% (35.7-47.0); Immature Granulocytes % 0.5 %; Immature Granulocytes Absolute 0.03 #; Lymphocytes # 2.6 10*3/uL (1.4-4.0); Lymphocytes % 44.3 % (21.3-54.2); Mean Corpuscular HGB Conc 31.5 GM/DL (32-36); Mean Corpuscular Hemoglobin 31 PG (27-34); Mean Corpuscular Volume 98.4 FL (87-102); Mean Platelet Volume 12.6 FL (9.6-12.0); Monocytes # 0.7 10*3/uL (0.11-0.8); Monocytes % 12.7 % (1.7-12.7); Neutrophils # 2.3 10*3/uL (1.4-7.4); Neutrophils % 39.6 % (38.7-73.9); Platelet Count 134 T/CUMM (130-400); Red Blood Count 3.22 MC/CUMM (3.8-5.5); Red Cell Distribution Width 14.6 % (9.3-17.3); White Blood Count 5.8 T/CUMM (4-12)
[2017-06-16] MEDS: POTASSIUM CHLORIDE 20 MEQ/10 ML VIAL INTRAPERIT SCH ×5 (05:16→23:54)
[2017-06-16] MEDS: METOCLOPRAMIDE 10 MG/2 ML VIAL IV SCH ×4 (05:39→23:54)
[2017-06-16] MEDS: LEVOTHYROXINE 125 MCG TABLET PO SCH (05:39)
[2017-06-16] MEDS: PANTOPRAZOLE 40 MG TABLET PO SCH ×2 (09:08→20:28)
[2017-06-16] MEDS: DOCUSATE SODIUM 100 MG CAPSULE PO SCH ×2 (09:09→20:28)
[2017-06-16] MEDS: ONDANSETRON 4 MG/2 ML VIAL IV PRN (11:25)
[2017-06-16] MEDS: ENOXAPARIN 30 MG/0.3 ML SYRINGE SUBCUT SCH (12:14)
[2017-06-16] MEDS: METOPROLOL TARTRATE 100 MG TABLET PO SCH ×2 (12:15→17:02)
[2017-06-17] MEDS: POTASSIUM CHLORIDE 20 MEQ/10 ML VIAL INTRAPERIT SCH ×3 (05:07→17:15)
[2017-06-17] MEDS: METOCLOPRAMIDE 10 MG/2 ML VIAL IV SCH ×3 (05:07→17:25)
[2017-06-17] MEDS: LEVOTHYROXINE 125 MCG TABLET PO SCH ×2 (05:07→05:29)
[2017-06-17 05:22] LABS: Calcium 8.1 MG/DL (8.5-10.1); Magnesium 1.4 MG/DL (1.8-2.4); Osmolality,Calculated 276.7 MOS/KG (273-304); Potassium 3.9 MMOL/L (3.5-5.1)
[2017-06-17] MEDS: PANTOPRAZOLE 40 MG TABLET PO SCH ×2 (08:42→21:13)
[2017-06-17] MEDS: DOCUSATE SODIUM 100 MG CAPSULE PO SCH ×2 (10:10→21:13)
[2017-06-17] MEDS: METOPROLOL TARTRATE 100 MG TABLET PO SCH ×2 (11:41→17:25)
[2017-06-17] MEDS: ENOXAPARIN 30 MG/0.3 ML SYRINGE SUBCUT SCH (11:41)
[2017-06-17] MEDS: MAGNESIUM CHLORIDE 64 MG TABLET PO SCH ×2 (16:08→21:13)
[2017-06-18] MEDS: POTASSIUM CHLORIDE 20 MEQ/10 ML VIAL INTRAPERIT SCH ×3 (00:08→11:55)
[2017-06-18] MEDS: METOCLOPRAMIDE 10 MG/2 ML VIAL IV SCH ×5 (00:34→23:39)
[2017-06-18] MEDS: LEVOTHYROXINE 125 MCG TABLET PO SCH (05:30)
[2017-06-18 05:44] LABS: Basophils % 0.6 % (0.0-0.8); Eosinophils # 0.1 10*3/uL (0.0-0.87); Eosinophils % 1.2 % (0.00-10.9); Hematocrit 37.4 VOL% (35.7-47.0); Hemoglobin 11.8 GM/DL (12.0-16.0); Immature Granulocytes % 0.5 %; Immature Granulocytes Absolute 0.03 #; Lymphocytes # 2.9 10*3/uL (1.4-4.0); Lymphocytes % 45.5 % (21.3-54.2); Mean Corpuscular HGB Conc 31.6 GM/DL (32-36); Mean Corpuscular Hemoglobin 31 PG (27-34); Mean Corpuscular Volume 98.4 FL (87-102); Mean Platelet Volume 12.3 FL (9.6-12.0); Monocytes # 0.7 10*3/uL (0.11-0.8); Monocytes % 11.3 % (1.7-12.7); Neutrophils # 2.6 10*3/uL (1.4-7.4); Neutrophils % 40.9 % (38.7-73.9); Platelet Count 140 T/CUMM (130-400); Red Cell Distribution Width 14.5 % (9.3-17.3); White Blood Count 6.4 T/CUMM (4-12)
[2017-06-18 06:09] LABS: Calcium 8.4 MG/DL (8.5-10.1); Magnesium 1.6 MG/DL (1.8-2.4); Osmolality,Calculated 278.5 MOS/KG (273-304); Potassium 4.2 MMOL/L (3.5-5.1)
[2017-06-18] MEDS: MAGNESIUM CHLORIDE 64 MG TABLET PO SCH ×3 (09:52→20:35)
[2017-06-18] MEDS: PANTOPRAZOLE 40 MG TABLET PO SCH ×2 (09:53→20:35)
[2017-06-18] MEDS: DOCUSATE SODIUM 100 MG CAPSULE PO SCH ×2 (09:53→20:40)
[2017-06-18] MEDS: diphenhydrAMINE CAP 25 MG CAPSULE PO PRN ×2 (10:27→20:36)
[2017-06-18] MEDS: oxyCODONE IR 5 MG TABLET PO PRN ×2 (10:28→20:35)
[2017-06-18] MEDS: ENOXAPARIN 30 MG/0.3 ML SYRINGE SUBCUT SCH (11:51)
[2017-06-18] MEDS: METOPROLOL TARTRATE 100 MG TABLET PO SCH ×2 (11:51→18:27)
[2017-06-18] MEDS: MIRTAZAPINE 15 MG TABLET PO SCH (20:36)
[2017-06-19] MEDS: METOCLOPRAMIDE 10 MG/2 ML VIAL IV SCH ×3 (05:47→18:00)
[2017-06-19] MEDS: LEVOTHYROXINE 125 MCG TABLET PO SCH (05:47)
[2017-06-19 06:28] LABS: Calcium 7.7 MG/DL (8.5-10.1); Magnesium 1.5 MG/DL (1.8-2.4); Osmolality,Calculated 279.5 MOS/KG (273-304); Phosphorous 3.8 MG/DL (2.5-4.9); Potassium 3.3 MMOL/L (3.5-5.1); Prealbumin 19.7 MG/DL (20-40)
[2017-06-19] MEDS: PANTOPRAZOLE 40 MG TABLET PO SCH ×2 (09:51→21:06)
[2017-06-19] MEDS: DOCUSATE SODIUM 100 MG CAPSULE PO SCH ×2 (09:51→21:07)
[2017-06-19] MEDS: POTASSIUM CHLORIDE 20 MEQ TABLET PO PRN ×3 (09:51→15:39)
[2017-06-19] MEDS: MAGNESIUM CHLORIDE 64 MG TABLET PO SCH ×3 (09:51→21:11)
[2017-06-19] MEDS: ENOXAPARIN 30 MG/0.3 ML SYRINGE SUBCUT SCH (12:18)
[2017-06-19] MEDS: METOPROLOL TARTRATE 100 MG TABLET PO SCH (12:18)
[2017-06-19] MEDS ORDERED: METOPROLOL TARTRATE 50 MG TABLET PO SCH (18:00)
[2017-06-19] MEDS: oxyCODONE IR 5 MG TABLET PO PRN (18:04)
[2017-06-19] MEDS: MIRTAZAPINE 15 MG TABLET PO SCH (21:04)
[2017-06-19] MEDS ORDERED: LEVOFLOXACIN INJ 500 MG in PREMIX 1 EACH IV ONE (22:31)
[2017-06-19] MEDS: CLINDAMYCIN INJ 900 MG in PREMIX 1 EACH IV SCH (23:49)
[2017-06-20] MEDS: METOCLOPRAMIDE 10 MG/2 ML VIAL IV SCH ×4 (00:16→17:05)
[2017-06-20] MEDS: ALBUTEROL/IPRATROPIUM 3 ML NEB RESP TX SCH ×4 (02:07→19:45)
[2017-06-20 02:55] LABS: Hematocrit 34.5 VOL% (35.7-47.0); Hemoglobin 10.9 GM/DL (12.0-16.0)
[2017-06-20] MEDS ORDERED: ACETAMINOPHEN 325 MG/10.15 ML UDCUP PO PRN (03:10)
[2017-06-20] MEDS ORDERED: SODIUM CHLORIDE 0.9% 500 ML IV ONE (05:15)
[2017-06-20 05:16] LABS: Basophils % 0.2 % (0.0-0.8); Hemoglobin 10.8 GM/DL (12.0-16.0); Immature Granulocytes % 0.7 %; Immature Granulocytes Absolute 0.11 #; Lymphocytes % 12.6 % (21.3-54.2); Mean Corpuscular HGB Conc 31.8 GM/DL (32-36); Mean Corpuscular Hemoglobin 31 PG (27-34); Mean Corpuscular Volume 96.9 FL (87-102); Mean Platelet Volume 13.2 FL (9.6-12.0); Monocytes # 1.4 10*3/uL (0.11-0.8); Neutrophils % 77.5 % (38.7-73.9); Platelet Count 105 T/CUMM (130-400); Red Blood Count 3.51 MC/CUMM (3.8-5.5); Red Cell Distribution Width 14.2 % (9.3-17.3); White Blood Count 15.5 T/CUMM (4-12)
[2017-06-20 05:50] LABS: Calcium 8.3 MG/DL (8.5-10.1); Magnesium 1.6 MG/DL (1.8-2.4); Osmolality,Calculated 277.1 MOS/KG (273-304); Potassium 3.4 MMOL/L (3.5-5.1)
[2017-06-20] MEDS: LEVOTHYROXINE 125 MCG TABLET PO SCH (05:50)
[2017-06-20] MEDS ORDERED: NOREPINEPHRINE 8 MG in SODIUM CHLORIDE 0.9% 242 ML IV SCH (06:30)
[2017-06-20] MEDS: CLINDAMYCIN INJ 900 MG in PREMIX 1 EACH IV SCH ×3 (06:40→23:30)
[2017-06-20] MEDS: MAGNESIUM CHLORIDE 64 MG TABLET PO SCH ×3 (08:10→20:56)
[2017-06-20] MEDS: PANTOPRAZOLE 40 MG TABLET PO SCH ×2 (08:10→20:57)
[2017-06-20] MEDS: DOCUSATE SODIUM 100 MG CAPSULE PO SCH ×2 (08:10→20:57)
[2017-06-20] MEDS: ENOXAPARIN 30 MG/0.3 ML SYRINGE SUBCUT SCH (11:53)
[2017-06-20] MEDS: oxyCODONE IR 5 MG TABLET PO PRN (14:19)
[2017-06-20] MEDS: SODIUM CHLORIDE 0.45% IV SCH (14:33)
[2017-06-20] MEDS: NOREPINEPHRINE IV SCH (14:33)
[2017-06-20] MEDS: MIRTAZAPINE 15 MG TABLET PO SCH (20:57)
[2017-06-21] MEDS: ALBUTEROL/IPRATROPIUM 3 ML NEB RESP TX SCH ×3 (00:53→13:01)
[2017-06-21] MEDS: METOCLOPRAMIDE 10 MG/2 ML VIAL IV SCH ×3 (00:53→11:01)
[2017-06-21 05:36] LABS: Basophils % 0.4 % (0.0-0.8); Eosinophils # 0.1 10*3/uL (0.0-0.87); Eosinophils % 0.6 % (0.00-10.9); Hematocrit 30.7 VOL% (35.7-47.0); Hemoglobin 9.9 GM/DL (12.0-16.0); Immature Granulocytes % 0.6 %; Immature Granulocytes Absolute 0.05 #; Lymphocytes % 23.3 % (21.3-54.2); Mean Corpuscular HGB Conc 32.2 GM/DL (32-36); Mean Corpuscular Hemoglobin 31 PG (27-34); Mean Corpuscular Volume 97.2 FL (87-102); Mean Platelet Volume 13.8 FL (9.6-12.0); Monocytes % 11.7 % (1.7-12.7); Neutrophils # 5.3 10*3/uL (1.4-7.4); Neutrophils % 63.4 % (38.7-73.9); Platelet Count 91 T/CUMM (130-400); Red Blood Count 3.16 MC/CUMM (3.8-5.5); White Blood Count 8.4 T/CUMM (4-12)
[2017-06-21 06:03] LABS: Calcium 8.5 MG/DL (8.5-10.1); Magnesium 1.6 MG/DL (1.8-2.4); Osmolality,Calculated 278.8 MOS/KG (273-304); Potassium 3.6 MMOL/L (3.5-5.1)
[2017-06-21 06:12] LABS: Hypochromasia 1+; Microcytosis 1+
[2017-06-21 06:13] LABS: Ovalocytes Few; Platelet Estimate Decreased
[2017-06-21] MEDS: LEVOTHYROXINE 125 MCG TABLET PO SCH (06:13)
[2017-06-21] MEDS: CLINDAMYCIN INJ 900 MG in PREMIX 1 EACH IV SCH (06:13)
[2017-06-21] MEDS: NOREPINEPHRINE IV SCH (07:12)
[2017-06-21] MEDS: SODIUM CHLORIDE 0.45% IV SCH (07:12)
[2017-06-21] MEDS: PANTOPRAZOLE 40 MG TABLET PO SCH (08:47)
[2017-06-21] MEDS: DOCUSATE SODIUM 100 MG CAPSULE PO SCH (08:47)
[2017-06-21] MEDS: MAGNESIUM CHLORIDE 64 MG TABLET PO SCH (08:47)
[2017-06-21] MEDS ORDERED: CARVEDILOL 3.125 MG TABLET PO SCH (10:00)
[2017-06-21] MEDS: ENOXAPARIN 30 MG/0.3 ML SYRINGE SUBCUT SCH (10:57)
[2017-06-21 13:03] VITALS: BP 118/74
[2017-06-21] MEDS ORDERED: LEVOFLOXACIN INJ 250 MG in PREMIX 1 EACH IV SCH (22:30)
== END 2017-06-21 14:15 | disposition hospice, home (50) | DRG 391 ==
LOC: EDBD → EDUNIT# → N.ED 10:38 → N.EDINP 13:35 → SUATTDRO 13:35 → N.5E 15:29 → N.TELEN 06-10 17:27 → N.5E 06-17 22:53 → N.CC 06-20 02:40
PROVIDERS: ADMIT Internal Medicine; ATTEND Hospitalist